=== PATIENT | female | born 1980 | race Caucasian/White ===

== ENCOUNTER 2017-03-14 00:45 | Emergency (ER) | payer MEDICAID ==
[2017-03-14] MEDS ORDERED: CEPHALEXIN 500 MG CAPSULE PO ONE (02:46)
--- NOTE | 2017-03-14 02:46 | ER Document Report ---
ED Skin Rash/Insect Bite/Abscs - General Chief Complaint: Abscess Stated Complaint: POSSIBLE VAGINAL BOIL Time Seen by Provider: 03/14/17 01:18 Notes: Patient is a 36-year-old female presents emergency department complaining of right vulvar boil for the past 2 weeks that has been intermittently painful. Patient states for the past 2 days it has been painful to touch in with sitting. She denies any fevers, chills, drainage PMH: diabetic TRAVEL OUTSIDE OF THE [place] IN LAST 30 DAYS: No - Related Data Allergies/Adverse Reactions: Shellfish * [Shellfish] Allergy (Severe, Verified 10/25/15 04:28) Hives (hospitalized for 2 days) amoxicillin trihydrate [From Augmentin] Allergy (Intermediate, Verified 04:28) Rash Potassium Clavulanate * [From Augmentin] Allergy (Intermediate, Verified 04:28) Rash propoxyphene napsylate [From Darvocet-N 100] Allergy (Intermediate, Verified 04:28) Rash Past Medical History - Social History Smoking Status: Current Every Day Smoker Chew tobacco use (# tins/day): No Frequency of alcohol use: Occasional Drug Abuse: None Family History: Reviewed & Not Pertinent Patient has suicidal ideation: No Patient has homicidal ideation: No - Past Medical History Cardiac Medical History: Reports: Hx Heart Attack, Hx Hypercholesterolemia, Hx Hypertension Denies: Hx Coronary Artery Disease Pulmonary Medical History: Reports: Hx Asthma, Hx Sleep Apnea Denies: Hx Bronchitis, Hx COPD, Hx Pneumonia, Hx Tuberculosis Neurological Medical History: Denies: Hx Cerebrovascular Accident, Hx Seizures Endocrine Medical History: Reports: Hx Diabetes Mellitus Type 2 Renal/ Medical History: Denies: Hx Peritoneal Dialysis GI Medical History: Reports: Hx Gastroesophageal Reflux Disease, Hx Ulcer Musculoskeltal Medical History: Denies Hx Arthritis Psychiatric Medical History: Reports: Hx Bipolar Disorder, Hx Depression, Hx Post Traumatic Stress Disorder, Hx Schizoaffective Disorder, Hx Schizophrenia Infectious Medical History: Past Surgical History: Reports: Hx Appendectomy, Hx Cholecystectomy, Hx Orthopedic Surgery, Hx Tonsillectomy. Denies: Hx Hysterectomy, Hx Pacemaker - Immunizations Hx Diphtheria, Pertussis, Tetanus Vaccination: No Hx Pneumococcal Vaccination: 10/13/97 Review of Systems - Review of Systems Constitutional: No symptoms reported Cardiovascular: No symptoms reported Respiratory: No symptoms reported Gastrointestinal: No symptoms reported Skin: See HPI -: Yes All other systems reviewed and negative Physical Exam - Vital signs Vitals: Temp Pulse Resp BP Pulse Ox 97.9 F 89 16 129/86 H 99 03/14/17 00:52 03/14/17 00:52 03/14/17 00:52 03/14/17 00:52 03/14/17 00:52 Interpretation: Normal - General General appearance: Appears well, Alert In distress: None - Genitourinary External exam: Normal, Other - no evidence of bartholian cyst Vaginal bleeding: None - Extremities General lower extremity: Normal inspection, Nontender, Normal color, Normal ROM , Normal strength, Normal temperature, Normal weight bearing. No: Henrique's sign - Skin Skin Temperature: Warm Skin Moisture: Dry Skin Color: Normal Skin Turgor: Elastic Skin irregularity: Abscess Location of irregularity: Other - groin Irregularity with: Swelling, Tenderness, Induration Course - Re-evaluation Re-evalutation: 03/14/17 04:52 He performed at the bedside for minimal less than 2 cc of drainage. Patient initiated on antibiotics instructed to keep the area clean and dry. Can follow- up with primary care - Vital Signs Vital signs: Temp Pulse Resp BP Pulse Ox 97.9 F 83 20 117/76 95 03/14/17 00:52 03/14/17 02:59 03/14/17 02:59 03/14/17 02:59 03/14/17 02:59 Procedures - Incision and Drainage Groin Type: Simple Anesthetic type: 1% Lidocaine mL's of anesthetic: 3 Blade size: 11 I&D procedure: Betadine prep applied, Sterile dressing applied Incision Method: Incision made by scalpel Amount/type of drainage: 2 purulent/bloody Female anatomy: 1 - abscess Discharge - Discharge Clinical Impression: Cellulitis Condition: Good Disposition: HOME, SELF-CARE Instructions: Post Incision and Drainage, Cephalexin ([facility]), Abscess ([facility]), Use of [id number] Ibuprofen ([facility]) Prescriptions: Cephalexin Monohydrate [Keflex 500 mg Capsule] 500 mg PO QID #20 capsule Fluconazole [Diflucan] 150 mg PO ONCE PRN #1 tablet PRN Reason: Referrals: ELA PUCKETT MD [[facility]] - Follow up as needed
[2017-03-14 03:01] VITALS: BP 117/76
[2017-03-14] MEDS ORDERED: OXYCODONE-ACETAMINOPHEN 5-325 MG TABLET PO ONE (03:01)
== END 2017-03-14 03:08 | disposition home or self-care (01) ==
LOC: ER 00:45
PROC: 0H9AXZZ Drainage of Inguinal Skin, External Approach (ICD-10-PCS; principal; 2017-03-14)
DX: N76.0 Acute vaginitis (principal); F17.200 Nicotine dependence, unspecified, uncomplicated
CPT/HCPCS: 99283

== ENCOUNTER 2017-04-25 13:10 | Emergency (ER) | payer MEDICAID ==
--- NOTE | 2017-04-25 14:49 | ER Document Report ---
ED Extremity Problem, Lower - General Chief Complaint: Foot Injury Stated Complaint: RIGHT FOOT PAIN Time Seen by Provider: 04/25/17 13:47 Mode of Arrival: Ambulatory Notes: 36-year-old female presents to ED for right foot pain since Friday. She denies any obvious injuries. She does not remember any injuries. But the pain keeps getting worse. TRAVEL OUTSIDE OF THE [place] IN LAST 30 DAYS: No - HPI Patient complains to provider of: Pain Location: Foot Occurred: Other - Friday Where: Home Onset/Duration: Gradual Quality of pain: Sharp Severity: Moderate Pain Level: 4 Recent injury: Possibly Associated symptoms: Painful ambulation Exacerbated by: Movement, Walking Relieved by: Nothing - Related Data Allergies/Adverse Reactions: Shellfish * [Shellfish] Allergy (Severe, Verified 10/25/15 04:28) Hives (hospitalized for 2 days) amoxicillin trihydrate [From Augmentin] Allergy (Intermediate, Verified 04:28) Rash Potassium Clavulanate * [From Augmentin] Allergy (Intermediate, Verified 04:28) Rash propoxyphene napsylate [From Darvocet-N 100] Allergy (Intermediate, Verified 04:28) Rash Past Medical History - General Information source: Patient - Social History Smoking Status: Current Every Day Smoker Cigarette use (# per day): Yes - Pack per day Chew tobacco use (# tins/day): No Smoking Education Provided: Yes - Less than 2 minutes Frequency of alcohol use: None Drug Abuse: None Occupation: Disability Lives with: Family Family History: Arthritis, CAD, COPD, DM, Hyperlipidemia, Hypertension, Thyroid Disfunction. denies: CVA, Malignancy Patient has suicidal ideation: No Patient has homicidal ideation: No - Past Medical History Cardiac Medical History: Reports: Hx Heart Attack, Hx Hypercholesterolemia, Hx Hypertension Pulmonary Medical History: Reports: Hx Asthma, Hx Sleep Apnea EENT Medical History: Reports: None Neurological Medical History: Reports: None Endocrine Medical History: Reports: Hx Diabetes Mellitus Type 2 Renal/ Medical History: Reports: None Malignancy Medical History: Reports: None GI Medical History: Reports: Hx Gastroesophageal Reflux Disease, Hx Ulcer Musculoskeltal Medical History: Reports Hx Arthritis, Reports Hx Musculoskeletal Deformity, Reports Hx Musculoskeletal Trauma Skin Medical History: Reports None Psychiatric Medical History: Reports: Hx Bipolar Disorder, Hx Depression, Hx Post Traumatic Stress Disorder, Hx Schizoaffective Disorder, Hx Schizophrenia Traumatic Medical History: Reports: Hx Fractures Infectious Medical History: Reports: None Past Surgical History: Reports: Hx Appendectomy, Hx Cholecystectomy, Hx Genitourinary Surgery - Bladder stimulator, Hx Gynecologic Surgery - Cervical laser surgery, Hx Orthopedic Surgery - Bunion surgery right foot, Hx Tonsillectomy - Immunizations Hx Diphtheria, Pertussis, Tetanus Vaccination: No Hx Pneumococcal Vaccination: 10/13/97 Review of Systems - Review of Systems Constitutional: No symptoms reported EENT: No symptoms reported Cardiovascular: No symptoms reported Respiratory: No symptoms reported Gastrointestinal: No symptoms reported Genitourinary: No symptoms reported Female Genitourinary: No symptoms reported Musculoskeletal: Other - Foot pain midfoot Skin: No symptoms reported Hematologic/Lymphatic: No symptoms reported Neurological/Psychological: No symptoms reported -: Yes All other systems reviewed and negative Physical Exam - Vital signs Vitals: Temp Pulse Resp BP Pulse Ox 98.7 F 92 16 124/77 96 04/25/17 13:37 04/25/17 13:37 04/25/17 13:37 04/25/17 13:37 04/25/17 13:37 Interpretation: Normal - General General appearance: Appears well, Alert - HEENT Head: Normocephalic, Atraumatic Eyes: Normal Pupils: PERRL - Respiratory Respiratory status: No respiratory distress Chest status: Nontender Breath sounds: Normal Chest palpation: Normal - Cardiovascular Rhythm: Regular Heart sounds: Normal auscultation Murmur: No - Abdominal Inspection: Normal Distension: No distension Bowel sounds: Normal Tenderness: Nontender Organomegaly: No organomegaly - Back Back: Normal, Nontender - Extremities General upper extremity: Normal inspection, Nontender, Normal color, Normal ROM , Normal temperature General lower extremity: Normal inspection, Normal color, Normal ROM, Normal temperature, Normal weight bearing. No: Henrique's sign Foot: Tender, Metatarsal compress. pain, No evidence of FB. No: Deformity, Ecchymosis, Edema, Instability, Nail injury, Navicular tenderness, Puncture wound, Tender 5th metatarsal, Unable to bear weight - Neurological Neuro grossly intact: Yes Cognition: Normal Orientation: AAOx4 [place] Coma Scale Eye Opening: Spontaneous [place] Coma Scale Verbal: Oriented Johnnie Coma Scale Motor: Obeys Commands Johnnie Coma Scale Total: 15 Speech: Normal Motor strength normal: LUE, RUE, LLE, RLE Sensory: Normal - Psychological Associated symptoms: Normal affect, Normal mood - Skin Skin Temperature: Warm Skin Moisture: Dry Skin Color: Normal Course - Re-evaluation Re-evalutation: 04/25/17 15:11 Instructed to follow-up with primary doctor as there is no new injuries his nose concern on the x-ray. Patient to take ibuprofen or whatever pain medicine she normally takes for her pain. - Vital Signs Vital signs: Temp Pulse Resp BP Pulse Ox 98.7 F 92 16 124/77 96 04/25/17 13:37 04/25/17 13:37 04/25/17 13:37 04/25/17 13:37 04/25/17 13:37 - Diagnostic Test Radiology reviewed: Image reviewed, Reports reviewed Discharge - Discharge Clinical Impression: foot pian right Condition: Stable Disposition: HOME, SELF-CARE Additional Instructions: Was seen today for foot pain to the right foot with no new injuries. Please take ibuprofen for your foot pain. Soaking her foot in Epsom salt. Follow-up with a travel pt or your primary doctor. Ibuprofen Ibuprofen is an excellent, safe drug for pain control. In addition, it has potent antiinflammatory effects which are beneficial, especially in the treatment of injuries, arthritis, or tendonitis. It's best to take ibuprofen with food. Persons with ulcer disease or allergy to aspirin should notify their physician of this before taking ibuprofen. Take the medication exactly as prescribed. Don't take additional doses unless instructed to do so by your doctor. If you develop wheezing, shortness of breath, hives, faintness, stomach pain, vomiting, or dark black stools, return for re-evaluation at once. Epsom Salt Soaks Soak the wound area in a container of warm epsom salt water. If you can't get the wound area into a bucket or amador, use a folded towel soaked in the epsom salt solution and apply to the area. Use clean hot tap water (about the temperature of a very warm bath), mixing in about one (1) teaspoon for every pint of water. Two gallon --> 16 teaspoons Epsom Salts One gallon --> 8 teaspoons Epsom Salts Two quarts --> 4 teaspoons Epsom Salts One quart --> 2 teaspoons Epsom Salts Soak the wound for about 20 minutes while gently moving it around in the water. Repeat this four (4) times a day. FOLLOW-UP CARE: If you have been referred to a physician for follow-up care, call the physician s office for an appointment as you were instructed or within the next two days. If you experience worsening or a significant change in your symptoms, notify the physician immediately or return to the Emergency Department at any time for re-evaluation. Forms: Smoking Cessation Education
--- NOTE | 2017-04-25 14:55 | RADIOLOGY REPORT (SQ) ---
EXAM DESCRIPTION: FOOT RIGHT COMPLETE COMPLETED DATE/TIME: 04/25/2017 2:37 pm REASON FOR STUDY: pain increasing right foot COMPARISON: 04/28/2012 NUMBER OF VIEWS: Three views. TECHNIQUE: AP, lateral and oblique radiographic images acquired of the right foot. LIMITATIONS: None. FINDINGS: MINERALIZATION: Normal. BONES: Apparent prior bunion surgery with hallux valgus. No acute fracture or dislocation is seen. JOINTS: No effusions. SOFT TISSUES: No soft tissue swelling. No foreign body. OTHER: No other significant finding. IMPRESSION: NEGATIVE STUDY OF THE RIGHT FOOT. NO RADIOGRAPHIC EVIDENCE OF ACUTE INJURY. TECHNICAL DOCUMENTATION: JOB ID: [id number] [employer]- All Rights Reserved
[2017-04-25 15:27] VITALS: BP 125/73
== END 2017-04-25 15:24 | disposition home or self-care (01) ==
LOC: ER 13:10
DX: M79.671 Pain in right foot (principal); F17.210 Nicotine dependence, cigarettes, uncomplicated; E78.00 Pure hypercholesterolemia, unspecified; I10 Essential (primary) hypertension; E11.9 Type 2 diabetes mellitus without complications; K21.9 Gastro-esophageal reflux disease without esophagitis; Z90.49 Acquired absence of other specified parts of digestive tract; Z88.0 Allergy status to penicillin; Z91.013 Allergy to seafood; I25.2 Old myocardial infarction
CPT/HCPCS: 99283

== ENCOUNTER 2017-05-10 15:08 | Emergency (ER) | payer MEDICAID ==
[2017-05-10] MEDS ORDERED: ASPIRIN 81 MG TABLET, CHEWABLE PO ONE (15:42)
[2017-05-10] MEDS ORDERED: NITROGLYCERIN 0.4 MG/TAB 25 TAB/BOTTLE SL PRN (15:50)
[2017-05-10] MEDS ORDERED: ONDANSETRON 4 MG TAB.RAPDIS PO ONE (15:51)
--- NOTE | 2017-05-10 15:51 | ER Document Report ---
ED Medical Screen (RME) - General Chief Complaint: Chest Pain Stated Complaint: CHEST PAIN Time Seen by Provider: 05/10/17 15:47 TRAVEL OUTSIDE OF THE [place] IN LAST 30 DAYS: No - HPI Patient complains to provider of: Chest pain associated with nausea, radiation to left arm. Like previous SD Onset: This morning Onset/Duration: Constant Quality of pain: Fullness, Pressure Severity: Severe Notes: 05/10/17 15:49 Patient with history of previous myocardial infarction presents with chest pain left arm tingling profound nausea. Is very reminiscent of her previous myocardial infarction. Patient says it is a fullness or crushing pain severe in nature nothing has made it better or worse. Patient denies fever chills or cough. Was in her normal state of health yesterday. Patient is not certain if exertion increases the pain - Related Data Smoking: Cigarettes - Smoker Allergies/Adverse Reactions: Shellfish * [Shellfish] Allergy (Severe, Verified 05/10/17 15:25) Hives (hospitalized for 2 days) amoxicillin trihydrate [From Augmentin] Allergy (Intermediate, Verified 15:25) Rash Potassium Clavulanate * [From Augmentin] Allergy (Intermediate, Verified 15:25) Rash propoxyphene napsylate [From Darvocet-N 100] Allergy (Intermediate, Verified 15:25) Rash Past Medical History - Social History Chew tobacco use (# tins/day): No Frequency of alcohol use: None Drug Abuse: None - Past Medical History Cardiac Medical History: Reports: Hx Heart Attack - 2010, Hx Hypercholesterolemia, Hx Hypertension Pulmonary Medical History: Reports: Hx Asthma, Hx Sleep Apnea Denies: Hx Bronchitis, Hx COPD, Hx Pneumonia, Hx Tuberculosis Neurological Medical History: Denies: Hx Seizures Endocrine Medical History: Reports: Hx Diabetes Mellitus Type 2 Renal/ Medical History: Denies: Hx Peritoneal Dialysis GI Medical History: Reports: Hx Gastroesophageal Reflux Disease, Hx Ulcer Musculoskeltal Medical History: Reports Hx Arthritis, Reports Hx Musculoskeletal Deformity, Reports Hx Musculoskeletal Trauma Psychiatric Medical History: Reports: Hx Bipolar Disorder, Hx Depression, Hx Post Traumatic Stress Disorder, Hx Schizoaffective Disorder, Hx Schizophrenia Traumatic Medical History: Reports: Hx Fractures Infectious Medical History: Past Surgical History: Reports: Hx Appendectomy, Hx Cholecystectomy, Hx Genitourinary Surgery - Bladder stimulator, Hx Gynecologic Surgery - Cervical laser surgery, Hx Orthopedic Surgery - Bunion surgery right foot, Hx Tonsillectomy. Denies: Hx Hysterectomy, Hx Pacemaker - Immunizations Hx Diphtheria, Pertussis, Tetanus Vaccination: No Physical Exam - Vital signs Vitals: Temp Pulse Resp BP Pulse Ox 98.0 F 85 16 120/73 98 05/10/17 15:25 05/10/17 15:25 05/10/17 15:25 05/10/17 15:25 05/10/17 15:25 Interpretation: Normal - General General appearance: Appears well, Alert In distress: Mild - HEENT Head: Normocephalic, Atraumatic Eyes: Normal Pupils: PERRL - Respiratory Respiratory status: No respiratory distress Chest status: Nontender Breath sounds: Normal Chest palpation: Normal - Cardiovascular Rhythm: Regular Heart sounds: Normal auscultation Murmur: No - Abdominal Inspection: Normal Distension: No distension Bowel sounds: Normal Tenderness: Nontender Organomegaly: No organomegaly - Back Back: Normal, Nontender - Extremities General upper extremity: Normal inspection, Nontender, Normal color, Normal ROM , Normal temperature General lower extremity: Normal inspection, Nontender, Normal color, Normal ROM , Normal temperature, Normal weight bearing. No: Henrique's sign - Neurological Neuro grossly intact: Yes Cognition: Normal Orientation: AAOx4 Johnnie Coma Scale Eye Opening: Spontaneous Johnnie Coma Scale Verbal: Oriented Johnnie Coma Scale Motor: Obeys Commands Johnnie Coma Scale Total: 15 Speech: Normal Motor strength normal: LUE, RUE, LLE, RLE Sensory: Normal - Psychological Associated symptoms: Normal affect, Normal mood - Skin Skin Temperature: Warm Skin Moisture: Dry Skin Color: Normal Course - Vital Signs Vital signs: Temp Pulse Resp BP Pulse Ox 98.0 F 85 16 120/73 98 05/10/17 15:25 05/10/17 15:25 05/10/17 15:25 05/10/17 15:25 05/10/17 15:25
[2017-05-10 16:18] LABS: ABSOLUTE EOSINOPHILS # (AUTO) 0.2 10^3/uL (0.0-0.6); ABSOLUTE LYMPHOCYTES (AUTO) 3.4 10^3/uL (0.5-4.7); ABSOLUTE MONOCYTES (AUTO) 0.8 10^3/uL (0.1-1.4); ABSOLUTE NEUT (AUTO) 5.8 10^3/uL (1.7-8.2); BASOPHILS % (AUTO) 0.3 % (0-2); EOSINOPHILS % (AUTO) 1.7 % (0-6); HEMATOCRIT 39.3 % (36.0-47.0); HEMOGLOBIN 13.7 g/dL (12.0-15.5); HGB HCT DIFFERENCE 1.8; LYMPHOCYTES % (AUTO) 33.3 % (13-45); MEAN CORPUSCULAR HEMOGLOBIN 31.9 pg (27.0-33.4); MEAN CORPUSCULAR HGB CONC 34.8 g/dL (32.0-36.0); MEAN CORPUSCULAR VOLUME 92 fl (80-97); MONOCYTES % (AUTO) 8.1 % (3-13); RED BLOOD COUNT 4.29 10^6/uL (3.72-5.28); SEGMENTED NEUTROPHILS % (AUTO) 56.6 % (42-78); WHITE BLOOD COUNT 10.3 10^3/uL (4.0-10.5)
--- NOTE | 2017-05-10 16:33 | RADIOLOGY REPORT (SQ) ---
EXAM DESCRIPTION: CHEST SINGLE VIEW COMPLETED DATE/TIME: 05/10/2017 4:15 pm REASON FOR STUDY: chest pain COMPARISON: 07/30/2016 EXAM PARAMETERS: NUMBER OF VIEWS: One view. TECHNIQUE: Single frontal radiographic view of the chest acquired. RADIATION DOSE: NA LIMITATIONS: None. FINDINGS: LUNGS AND PLEURA: No opacities, masses or pneumothorax. No pleural effusion. MEDIASTINUM AND HILAR STRUCTURES: No masses. Contour normal. HEART AND VASCULAR STRUCTURES: Heart normal in size. Normal vasculature. BONES: No acute findings. HARDWARE: None in the chest. OTHER: No other significant finding. IMPRESSION: NO ACUTE RADIOGRAPHIC FINDING IN THE CHEST. TECHNICAL DOCUMENTATION: JOB ID: [id number]
[2017-05-10 16:43] LABS: ALANINE AMINOTRANSFERASE 128 U/L (9-52); ALBUMIN 3.9 g/dL (3.5-5.0); ALKALINE PHOSPHATASE 97 U/L (38-126); ANION GAP 9 (5-19); ASPARTATE AMINO TRANSFERASE 138 U/L (14-36); BILIRUBIN,DIRECT 0.4 mg/dL (0.0-0.4); BILIRUBIN,TOTAL 0.4 mg/dL (0.2-1.3); BLOOD UREA NITROGEN 7 mg/dL (7-20); CALCIUM 9.6 mg/dL (8.4-10.2); CARBON DIOXIDE 26 mmol/L (22-30); CHLORIDE 104 mmol/L (98-107); CREATININE RESULT 0.74 mg/dL (0.52-1.25); GLUCOSE 104 mg/dL (75-110); POTASSIUM 4.1 mmol/L (3.6-5.0); SODIUM 139.1 mmol/L (137-145); TOTAL PROTEIN 6.8 g/dL (6.3-8.2)
--- NOTE | 2017-05-10 16:50 | ER Document Report ---
ED Cardiac - General Chief Complaint: Chest Pain Stated Complaint: CHEST PAIN Time Seen by Provider: 05/10/17 15:47 Mode of Arrival: Ambulatory Information source: Patient TRAVEL OUTSIDE OF THE [place] IN LAST 30 DAYS: No - HPI Patient complains to provider of: Chest pain Was the onset of pain: Gradual Is the pain a: New problem Chest pain location: Under breast Quality of pain: Achy Severity now: Mild Severity at worst: Moderate Chest pain precipitating factors: At Rest Cardiac risk factors: Diabetes, Hypertension, Dyslipidemia Associated symptoms: Nausea/vomiting Notes: Patient is a 36-year-old female with a history of diabetes, high cholesterol, asthma, hypertension, peripheral vascular disease as well as a history of mental illness, she presents to the emergency room complaining of dull achy chest pain that started around 530 this morning, it is located just below the left breast, she reports improvement of symptoms since 530 this morning, however does have some nausea, nonproductive cough, with occasional shortness of breath, she denies any fever, patient reports a history of NV back in 2010 or 2011, states she was treated at [facility] in [place], [place] [facility] [employer] she had a cardiac catheterization and told it was fine without blockage and she did not receive any stents at that time, patient is a smoker - Related Data Allergies/Adverse Reactions: Shellfish * [Shellfish] Allergy (Severe, Verified 05/10/17 16:34) Hives (hospitalized for 2 days) amoxicillin trihydrate [From Augmentin] Allergy (Intermediate, Verified 16:34) Rash Potassium Clavulanate * [From Augmentin] Allergy (Intermediate, Verified 16:34) Rash propoxyphene napsylate [From Darvocet-N 100] Allergy (Intermediate, Verified 16:34) Rash Past Medical History - General Information source: Patient - Social History Smoking Status: Current Every Day Smoker Chew tobacco use (# tins/day): No Frequency of alcohol use: None Drug Abuse: None Family History: Arthritis, CAD, COPD, DM, Hyperlipidemia, Hypertension, Thyroid Disfunction. denies: CVA, Malignancy - Past Medical History Cardiac Medical History: Reports: Hx Heart Attack - 2010, Hx Hypercholesterolemia, Hx Hypertension Pulmonary Medical History: Reports: Hx Asthma, Hx Sleep Apnea Denies: Hx Bronchitis, Hx COPD, Hx Pneumonia, Hx Tuberculosis Neurological Medical History: Denies: Hx Seizures Endocrine Medical History: Reports: Hx Diabetes Mellitus Type 2 Renal/ Medical History: Denies: Hx Peritoneal Dialysis GI Medical History: Reports: Hx Gastroesophageal Reflux Disease, Hx Ulcer Musculoskeltal Medical History: Reports Hx Arthritis, Reports Hx Musculoskeletal Deformity, Reports Hx Musculoskeletal Trauma Psychiatric Medical History: Reports: Hx Bipolar Disorder, Hx Depression, Hx Post Traumatic Stress Disorder, Hx Schizoaffective Disorder, Hx Schizophrenia Traumatic Medical History: Reports: Hx Fractures Infectious Medical History: Past Surgical History: Reports: Hx Appendectomy, Hx Cholecystectomy, Hx Genitourinary Surgery - Bladder stimulator, Hx Gynecologic Surgery - Cervical laser surgery, Hx Orthopedic Surgery - Bunion surgery right foot, Hx Tonsillectomy. Denies: Hx Hysterectomy, Hx Pacemaker - Immunizations Hx Diphtheria, Pertussis, Tetanus Vaccination: No Hx Pneumococcal Vaccination: 10/13/97 Review of Systems - Review of Systems Constitutional: No symptoms reported EENT: No symptoms reported Cardiovascular: Chest pain Respiratory: No symptoms reported Gastrointestinal: No symptoms reported Genitourinary: No symptoms reported Female Genitourinary: No symptoms reported Musculoskeletal: No symptoms reported Skin: No symptoms reported Hematologic/Lymphatic: No symptoms reported Neurological/Psychological: No symptoms reported -: Yes All other systems reviewed and negative Physical Exam - Vital signs Vitals: Temp Pulse Resp BP Pulse Ox 98.0 F 85 16 120/73 98 05/10/17 15:25 05/10/17 15:25 05/10/17 15:25 05/10/17 15:25 05/10/17 15:25 Interpretation: Normal - General General appearance: Appears well, Alert - HEENT Head: Normocephalic, Atraumatic Eyes: Normal Pupils: PERRL - Respiratory Respiratory status: No respiratory distress Chest status: Tender - Tenderness to palpate in left anterior chest wall Breath sounds: Normal Chest palpation: Normal - Cardiovascular Rhythm: Regular Heart sounds: Normal auscultation Murmur: No - Abdominal Inspection: Morbidly Obese Distension: No distension Bowel sounds: Normal Tenderness: Nontender Organomegaly: No organomegaly - Back Back: Normal, Nontender - Extremities General upper extremity: Normal inspection, Nontender, Normal color, Normal ROM , Normal temperature General lower extremity: Normal inspection, Nontender, Normal color, Normal ROM , Normal temperature, Normal weight bearing. No: Henrique's sign - Neurological Neuro grossly intact: Yes Cognition: Normal Orientation: AAOx4 [place] Coma Scale Eye Opening: Spontaneous [place]nie Coma Scale Verbal: Oriented Johnnie Coma Scale Motor: Obeys Commands [place] Coma Scale Total: 15 Speech: Normal Motor strength normal: LUE, RUE, LLE, RLE Sensory: Normal - Psychological Associated symptoms: Normal affect, Normal mood - Skin Skin Temperature: Warm Skin Moisture: Dry Skin Color: Normal Course - Re-evaluation Re-evalutation: 05/10/17 17:35 Patient's chest pain is reproducible on palpation, cardiac enzymes are negative after 12 hours from onset of pain, workup is otherwise unremarkable in the emergency room, she has multiple risk factors for heart disease, reports an NV in 2010 or 2011 but also states that she had a cardiac catheterization which she was told was normal and she did not receive any stents, I reviewed her records at this facility back to 2010 and there is no evidence of any elevated troponins during her visits here, I did request records from [facility] to clarify whether patient actually had an NV in the past or not but since it is the weekend there was quite a delay in obtaining the records, patient is resting comfortably, in no acute distress, it is unlikely that her reproducible chest pain is cardiac related with an unremarkable evaluation here, patient has a local roller coaster operator, she was advised to follow-up in the next 1-2 days or return if symptoms worsen, patient acknowledges understanding and agreement with this plan - Vital Signs Vital signs: Temp Pulse Resp BP Pulse Ox 98.0 F 72 20 111/67 97 05/10/17 15:25 05/10/17 16:35 05/10/17 16:35 05/10/17 16:32 05/10/17 16:34 - Laboratory Result Diagrams: 05/10/17 16:00 05/10/17 16:00 Laboratory results interpreted by me: 05/10/17 05/10/17 16:00 16:00 AST 138 H ALT 128 H Lipase 21.0 L - Diagnostic Test Radiology reviewed: Image reviewed, Reports reviewed - EKG Interpretation by Me EKG shows normal: Sinus rhythm Rate: Normal Rhythm: NSR Discharge - Discharge Clinical Impression: Chest wall pain Condition: Stable Disposition: HOME, SELF-CARE Instructions: Chest Wall Pain ([facility]) Additional Instructions: Follow up with your primary care provider and roller coaster operator in one to 2 days. Return to the emergency room immediately if symptoms worsen or any additional concerns. Forms: Smoking Cessation Education
[2017-05-10] MEDS ORDERED: ONDANSETRON HCL INJ/PF 4 MG/2 ML SDV IV ONE (17:17)
[2017-05-10 17:42] VITALS: BP 124/90
--- NOTE | 2017-05-11 11:10 | EKG REPORT ---
SEVERITY:- NORMAL ECG - SINUS RHYTHM : Confirmed by: Ananya Tamayo MD 11-May-2017 11:09:39
== END 2017-05-10 17:41 | disposition home or self-care (01) ==
LOC: ER 15:08
DX: R07.89 Other chest pain (principal); E11.9 Type 2 diabetes mellitus without complications; E78.00 Pure hypercholesterolemia, unspecified; J45.909 Unspecified asthma, uncomplicated; I10 Essential (primary) hypertension; I73.9 Peripheral vascular disease, unspecified; F17.200 Nicotine dependence, unspecified, uncomplicated
CPT/HCPCS: 93005; 99285; 36415; 83690; 85025; 80053; 84484; 71010; 93010; S0119; J3490

== ENCOUNTER → 2017-05-23 | Outpatient (CLI) | payer MEDICAID | LOC: OD 09:12 | PROVIDERS: ATTEND Internal Medicine | DX: N92.6 Irregular menstruation, unspecified (principal) | CPT/HCPCS: 36415; 84703 ==

== ENCOUNTER 2017-06-02 12:50 | Day surgery (SDC) | payer MEDICAID ==
[2017-06-02] MEDS ORDERED: DIPHENHYDRAMINE HCL 50 MG/ML VIAL ONE (12:53)
[2017-06-02] MEDS ORDERED: NALOXONE HCL INJ/PF 0.4 MG/1 ML SDV ONE (12:53)
[2017-06-02] MEDS ORDERED: ONDANSETRON HCL INJ/PF 4 MG/2 ML SDV ONE (12:53)
[2017-06-02] MEDS ORDERED: EPINEPHRINE INJ 1 MG/10 ML DISP.SYRIN ONE (12:54)
[2017-06-02] MEDS ORDERED: FENTANYL CITRATE INJ/PF 100 MCG/2 ML AMPUL ONE (12:54)
[2017-06-02] MEDS ORDERED: GLUCAGON,HUMAN RECOMB 1 MG INJ ONE (12:54)
[2017-06-02] MEDS ORDERED: FLUMAZENIL INJ 0.5 MG/5 ML VIAL ONE (12:54)
[2017-06-02] MEDS ORDERED: MIDAZOLAM 2 MG/2 ML INJ ONE ×2 (12:54)
[2017-06-02] MEDS ORDERED: PROPOFOL INJ 200 MG/20 ML VIAL IV ONE (13:15)
--- NOTE | 2017-06-02 13:55 | Operative Report ---
Operative Report DATE OF SURGERY: 06/02/17 Operative Report: The risks benefits and alternatives of the procedure explained to the patient in detail and informed consent is obtained.A GIF Olympus video scope was inserted into the patient's mouth and hypopharynx, the esophagus is identified intubated and insufflated, the scope was then advanced through the esophagus stomach and duodenum, retroflexion maneuver is done, the esophagus stomach and first and second portions of the duodenum examined PREOPERATIVE DIAGNOSIS: Epigastric pain POSTOPERATIVE DIAGNOSIS: Esophagitis, gastritis. Biopsies obtained to rule out for Helicobacter pylori OPERATION: EGD with biopsy SURGEON: RADHA ZAMORA ANESTHESIA: LMAC TISSUE REMOVED OR ALTERED: Gastric mucosal specimens obtained COMPLICATIONS: None. ESTIMATED BLOOD LOSS: None. INTRAOPERATIVE FINDINGS: No gastric ulcers noted PROCEDURE: Patient tolerated the procedure well. No immediate postprocedure complications are noted. Patient is discharged in good condition. Discharge date 06/02/2017. Discharge diet: Regular. Discharge activity: Regular. 2-3 week follow-up to discuss findings. Patient is instructed to call the office or proceed to the emergency room should there be any further problems or questions. We will wait on biopsies.
[2017-06-02 14:29] VITALS: BP 130/80
== END 2017-06-02 14:35 | disposition home or self-care (01) ==
LOC: END 12:50
PROVIDERS: ATTEND Internal Medicine Gastroenterology
PROC: 0DB68ZX Excision of Stomach, Via Natural or Artificial Opening Endoscopic, Diagnostic (ICD-10-PCS; principal; 2017-06-02 14:00)
DX: K31.9 Disease of stomach and duodenum, unspecified (principal); K20.9 Esophagitis, unspecified; E11.9 Type 2 diabetes mellitus without complications; I20.9 Angina pectoris, unspecified; I10 Essential (primary) hypertension; R00.0 Tachycardia, unspecified; E78.00 Pure hypercholesterolemia, unspecified; J45.909 Unspecified asthma, uncomplicated; Z79.899 Other long term (current) drug therapy; Z79.1 Long term (current) use of non-steroidal anti-inflammatories (NSAID); Z88.1 Allergy status to other antibiotic agents; I25.2 Old myocardial infarction; Z88.5 Allergy status to narcotic agent
CPT/HCPCS: 43239; 82962; 88342 ×2; 88305 ×2; J2250; J2704; 740; J0171; J1200; J1610; J2310; J2405; J3010; J3490

== ENCOUNTER 2017-06-26 09:19 | Emergency (ER) | payer MEDICAID ==
[2017-06-26 09:25] VITALS: BP 130/75
--- NOTE | 2017-06-26 10:27 | ER Document Report ---
ED Skin Rash/Insect Bite/Abscs - General Chief Complaint: Insect Bite Stated Complaint: LEFT HAND PAIN, SWELLING Time Seen by Provider: 06/26/17 10:04 Mode of Arrival: Ambulatory Information source: Patient Notes: 37-year-old female presents to ED for bug bite to the left hand. She states she took Benadryl and Tylenol about 8:00 states something bit her between 7 and 715. Denies any other symptoms. Denies any shortness of breath difficulty swallowing. TRAVEL OUTSIDE OF THE [place] IN LAST 30 DAYS: No - HPI Patient complains to provider of: Insect bite Onset: This morning Onset/Duration: Gradual Quality of pain: Burning Severity: Moderate Pain Level: 2 Skin Character: Other - Insert bite to left hand Quality of rash: Itchy, Painful Identify cause: Yes Exacerbated by: Denies Relieved by: Denies Similar symptoms previously: Yes Recently seen / treated by doctor: No - Related Data Allergies/Adverse Reactions: Shellfish * [Shellfish] Allergy (Severe, Verified 06/26/17 09:25) Hives (hospitalized for 2 days) amoxicillin trihydrate [From Augmentin] Allergy (Intermediate, Verified 09:25) Rash Potassium Clavulanate * [From Augmentin] Allergy (Intermediate, Verified 09:25) Rash propoxyphene napsylate [From Darvocet-N 100] Allergy (Intermediate, Verified 09:25) Rash Sulfa (Sulfonamide Antibiotics) Allergy (Intermediate, Verified 06/26/17 09:25) Generalized rash Past Medical History - General Information source: Patient - Social History Smoking Status: Current Every Day Smoker Cigarette use (# per day): Yes - 15 cigarettes a day Chew tobacco use (# tins/day): No Smoking Education Provided: Yes - Less than 2 minutes Frequency of alcohol use: Occasional Drug Abuse: None Lives with: Family Family History: Arthritis, CAD, COPD, DM, Hyperlipidemia, Hypertension, Thyroid Disfunction. denies: CVA, Malignancy Patient has suicidal ideation: No Patient has homicidal ideation: No - Past Medical History Cardiac Medical History: Reports: Hx Heart Attack - 2011, Hx Hypercholesterolemia, Hx Hypertension Pulmonary Medical History: Reports: Hx Asthma, Hx Sleep Apnea Denies: Hx Bronchitis, Hx COPD, Hx Pneumonia, Hx Tuberculosis EENT Medical History: Reports: None Neurological Medical History: Reports: None Endocrine Medical History: Reports: Hx Diabetes Mellitus Type 2 Renal/ Medical History: Reports: None Malignancy Medical History: Reports: None GI Medical History: Reports: Hx Gastroesophageal Reflux Disease Musculoskeltal Medical History: Reports Hx Arthritis, Reports Hx Musculoskeletal Deformity, Reports Hx Musculoskeletal Trauma Skin Medical History: Reports None Psychiatric Medical History: Reports: Hx Bipolar Disorder, Hx Depression, Hx Post Traumatic Stress Disorder, Hx Schizoaffective Disorder, Hx Schizophrenia Traumatic Medical History: Reports: Hx Fractures - Right foot Infectious Medical History: Reports: None Past Surgical History: Reports: Hx Appendectomy, Hx Cholecystectomy, Hx Genitourinary Surgery - Bladder stimulator, Hx Gynecologic Surgery - Cervical laser surgery, Hx Orthopedic Surgery - Bunion surgery right foot, Hx Tonsillectomy - Immunizations Hx Diphtheria, Pertussis, Tetanus Vaccination: No Hx Pneumococcal Vaccination: 10/13/97 Review of Systems - Review of Systems Constitutional: No symptoms reported EENT: No symptoms reported Cardiovascular: No symptoms reported Respiratory: No symptoms reported Gastrointestinal: No symptoms reported Genitourinary: No symptoms reported Female Genitourinary: No symptoms reported Musculoskeletal: No symptoms reported Skin: Other - Insect bite to left hand with local reaction redness and swelling Hematologic/Lymphatic: No symptoms reported Neurological/Psychological: No symptoms reported Physical Exam - Vital signs Vitals: Temp Pulse Resp BP Pulse Ox 98.9 F 95 16 130/75 H 97 06/26/17 09:24 06/26/17 09:24 06/26/17 09:24 06/26/17 09:24 06/26/17 09:24 Interpretation: Normal - General General appearance: Appears well, Alert - HEENT Head: Normocephalic, Atraumatic Eyes: Normal Pupils: PERRL - Respiratory Respiratory status: No respiratory distress Chest status: Nontender Breath sounds: Normal Chest palpation: Normal - Cardiovascular Rhythm: Regular Heart sounds: Normal auscultation Murmur: No - Abdominal Inspection: Normal Distension: No distension Bowel sounds: Normal Tenderness: Nontender Organomegaly: No organomegaly - Back Back: Normal, Nontender - Extremities General upper extremity: Nontender, Normal ROM, Normal temperature General lower extremity: Normal inspection, Nontender, Normal color, Normal ROM , Normal temperature, Normal weight bearing. No: Henrique's sign Hand: Tender, No evidence of human bite, No evidence of FB, Swelling, Other - Insert bite to left back of hand with redness and swelling local insect reaction - Neurological Neuro grossly intact: Yes Cognition: Normal Orientation: AAOx4 [place] Coma Scale Eye Opening: Spontaneous Johnnie Coma Scale Verbal: Oriented [place] Coma Scale Motor: Obeys Commands [place] Coma Scale Total: 15 Speech: Normal Motor strength normal: LUE, RUE, LLE, RLE Sensory: Normal - Psychological Associated symptoms: Normal affect, Normal mood - Skin Skin Temperature: Warm Skin Moisture: Dry Skin Color: Normal Course - Re-evaluation Re-evalutation: 06/26/17 11:11 She was given ice pack for her insect bite she had already taken Tylenol and Benadryl. She has a local reaction to an insect bite and will be discharged home. Patient was given instructions on care of an insect bite. Patient denies any difficulty breathing any difficulty swallowing denies any swelling to her throat. No signs or symptoms of any anaphylactic reaction. - Vital Signs Vital signs: Temp Pulse Resp BP Pulse Ox 98.9 F 95 16 130/75 H 97 06/26/17 09:24 06/26/17 09:24 06/26/17 09:24 06/26/17 09:24 06/26/17 09:24 Discharge - Discharge Clinical Impression: Insect bite of left hand Qualifiers: Encounter type: initial encounter Qualified Code(s): S60.562A - Insect bite ( nonvenomous) of left hand, initial encounter Condition: Stable Disposition: HOME, SELF-CARE Additional Instructions: Insect Bites You have been bitten by an insect. These bites can cause two types of swelling: an initial swelling due to insect saliva or injected poison, and a late reaction due to your body's allergic reaction. This initial local reaction may be uncomfortable but is not dangerous. Often there's an itchy "hive" at the bite location. This is treated with antihistamines, cold compresses, and resting the affected body part. The later reaction often develops about the second day. The entire area becomes very swollen, red, itchy, and tender. This is an allergic reaction. Your body is attacking the leftover insect saliva or venom. This type of allergy is unpleasant, but not dangerous. We treat this swelling with cortisone -type medicine. Sometimes we use antibiotics if we're worried about infection. Antihistamines help with the itch. If you develop a fever, chills, a red streak, or swollen glands in the area of the bite, infection may be starting. Return at once. ACID-SUPPRESSING MEDICATION: You have a prescription for medicine which reduces the stomach's secretion of acid. Examples include Zantac, Tagament, and Pepcid. These drugs are often used to allow healing of ulcers or esophagitis. They may be needed to prevent recurrence of ulcers in some patients, or to prevent damage from acid reflux in the esophagus. Take all medication as prescribed, even after the pain is gone. Regular antacids may be added as needed if you have symptoms while taking this medicine. These medications sometimes are prescribed for allergic reactions because they have anti-histaminic effects and relieve the rash and itching of the reaction. There are usually no side effects from this medication. But, in rare cases and particularly in the elderly, serious problems can occur. Contact your doctor if there is fever, rash, hallucinations, confusion, or unusual bruising. Contact your doctor at once if you develop lightheadedness, black or bloody stool, or bloody vomitus. ANTIHISTAMINES: An antihistamine has been given and/or prescribed to control your symptoms. Antihistamines are used for many reasons, including itching, watering eyes, runny nose, allergic swelling, hives, and insect stings. Antihistamines may cause drowsiness, especially with the first dose. Do not operate machinery or drive while under the effects of the medication. Other common side effects include dry mouth and eyes. In older persons, antihistamines can occasionally cause urinary retention, constipation, and trouble focusing the eyes. Do not combine the medication with alcohol, or with any other medication without talking to your doctor. USE OF DIPHENHYDRAMINE: The use of diphenhydramine (Benadryl) has been recommended to control allergic symptoms. The 25 mg strength is available over- the-counter, as well as the elixir. This antihistamine is used for many symptoms. It's useful for itching, watering eyes and nose, allergic swelling, hives, and insect stings. The medication can be repeated four times daily. Age Elixir (12.5 mg/tsp) 25 mg pill 2-3 yr 1/2 tsp 4-8 yr 1 tsp 9-14 yr 2 tsp one tab adult 1-2 tabs Antihistamines may cause drowsiness, especially with the first dose. Do not operate machinery or drive while under the effects of the medication. Do not combine the medication with alcohol, or with any other medication without talking to your doctor. Ice Packs Apply ice packs frequently against the painful area. Many different schedules are recommended, such as "20 minutes on, 20 minutes off" or "one hour ice, two hours rest." If you need to work, you may need to go longer between ice treatments. You should plan to have the area ice packed AT LEAST one fourth of the time. The ice should be applied over the wrap, tape, or splint, or over a layer of cloth -- not directly against the skin. Some ice bags have a built-in cloth and can be put directly on the skin. FOLLOW-UP CARE: If you have been referred to a physician for follow-up care, call the physician s office for an appointment as you were instructed or within the next two days. If you experience worsening or a significant change in your symptoms, notify the physician immediately or return to the Emergency Department at any time for re-evaluation. Forms: Smoking Cessation Education, Return to School
== END 2017-06-26 10:24 | disposition home or self-care (01) ==
LOC: ER 09:19
DX: S60.562A Insect bite (nonvenomous) of left hand, initial encounter (principal); M79.642 Pain in left hand; F17.210 Nicotine dependence, cigarettes, uncomplicated; W57.XXXA Bitten or stung by nonvenomous insect and other nonvenomous arthropods, initial encounter; E78.00 Pure hypercholesterolemia, unspecified; K21.9 Gastro-esophageal reflux disease without esophagitis; I10 Essential (primary) hypertension; F43.10 Post-traumatic stress disorder, unspecified; E11.9 Type 2 diabetes mellitus without complications; Z88.0 Allergy status to penicillin; Z91.013 Allergy to seafood; Z88.2 Allergy status to sulfonamides; I25.2 Old myocardial infarction; Z90.49 Acquired absence of other specified parts of digestive tract
CPT/HCPCS: 99281

== ENCOUNTER 2017-08-01 09:36 | Emergency (ER) | payer MEDICAID ==
--- NOTE | 2017-08-01 10:14 | ER Document Report ---
ED General - General Chief Complaint: Fall Injury Stated Complaint: FALL/RIGHT ANKLE INJURY Time Seen by Provider: 08/01/17 10:05 Mode of Arrival: Ambulatory Information source: Patient Notes: 37-year-old female who normally uses a walker to ambulate presents after inverting her right ankle. Patient admits to pain of the first digit. Patient is able to ambulate. TRAVEL OUTSIDE OF THE [place] IN LAST 30 DAYS: No - HPI Onset: Just prior to arrival Onset/Duration: Sudden Quality of pain: Achy Severity: Mild Pain Level: 1 Associated symptoms: Body/muscle aches Exacerbated by: Movement, Walking Relieved by: Denies Similar symptoms previously: No Recently seen / treated by doctor: No - Related Data Allergies/Adverse Reactions: Shellfish * [Shellfish] Allergy (Severe, Verified 08/01/17 09:47) Hives (hospitalized for 2 days) amoxicillin trihydrate [From Augmentin] Allergy (Intermediate, Verified 09:47) Rash Potassium Clavulanate * [From Augmentin] Allergy (Intermediate, Verified 09:47) Rash propoxyphene napsylate [From Darvocet-N 100] Allergy (Intermediate, Verified 09:47) Rash Sulfa (Sulfonamide Antibiotics) Allergy (Intermediate, Verified 08/01/17 09:47) Generalized rash Past Medical History - Social History Smoking Status: Never Smoker Cigarette use (# per day): No Chew tobacco use (# tins/day): No Smoking Education Provided: No Frequency of alcohol use: None Drug Abuse: None Family History: Arthritis, CAD, COPD, DM, Hyperlipidemia, Hypertension, Thyroid Disfunction. denies: CVA, Malignancy Patient has suicidal ideation: No Patient has homicidal ideation: No - Past Medical History Cardiac Medical History: Reports: Hx Heart Attack - 2010, Hx Hypercholesterolemia, Hx Hypertension Denies: Hx Coronary Artery Disease Pulmonary Medical History: Reports: Hx Asthma, Hx Sleep Apnea Denies: Hx Bronchitis, Hx COPD, Hx Pneumonia, Hx Tuberculosis Neurological Medical History: Denies: Hx Cerebrovascular Accident, Hx Seizures Endocrine Medical History: Reports: Hx Diabetes Mellitus Type 2 Renal/ Medical History: Denies: Hx Peritoneal Dialysis GI Medical History: Reports: Hx Gastroesophageal Reflux Disease, Hx Ulcer Musculoskeltal Medical History: Reports Hx Arthritis, Reports Hx Musculoskeletal Deformity, Reports Hx Musculoskeletal Trauma Psychiatric Medical History: Reports: Hx Bipolar Disorder, Hx Depression, Hx Post Traumatic Stress Disorder, Hx Schizoaffective Disorder, Hx Schizophrenia Traumatic Medical History: Reports: Hx Fractures - Right foot Infectious Medical History: Past Surgical History: Reports: Hx Appendectomy, Hx Cholecystectomy, Hx Genitourinary Surgery - Bladder stimulator, Hx Gynecologic Surgery - Cervical laser surgery, Hx Orthopedic Surgery - Bunion surgery right foot, Hx Tonsillectomy. Denies: Hx Hysterectomy, Hx Pacemaker - Immunizations Hx Diphtheria, Pertussis, Tetanus Vaccination: No Hx Pneumococcal Vaccination: 10/13/97 Review of Systems - Review of Systems Notes: REVIEW OF SYSTEMS: CONSTITUTIONAL : Denies fever, chills, or sweats. Denies recent illness. EENT: Denies eye, ear, throat, or mouth pain or symptoms. Denies nasal or sinus congestion or discharge. Denies throat, tongue, or mouth swelling or difficulty swallowing. CARDIOVASCULAR: Denies chest pain. Denies palpitations or racing or irregular heart beat. Denies ankle edema. RESPIRATORY: Denies cough, cold, or chest congestion. Denies shortness of breath, difficulty breathing, or wheezing. GASTROINTESTINAL: Denies abdominal pain or distention. Denies nausea, vomiting , or diarrhea. Denies blood in vomitus, stools, or per rectum. Denies black, tarry stools. Denies constipation. GENITOURINARY: Denies difficulty urinating, painful urination, burning, frequency, blood in urine, or discharge. FEMALE GENITOURINARY: Denies vaginal bleeding, heavy or abnormal periods, irregular periods. Denies vaginal discharge or odor. MUSCULOSKELETAL: Admits the first digit pain SKIN: Denies rash, lesions or sores. HEMATOLOGIC : Denies easy bruising or bleeding. LYMPHATIC: Denies swollen, enlarged glands. NEUROLOGICAL: Denies confusion or altered mental status. Denies passing out or loss of consciousness. Denies dizziness or lightheadedness. Denies headache. Denies weakness or paralysis or loss of use of either side. Denies problems with gait or speech. Denies sensory loss, numbness, or tingling. Denies seizures. PSYCHIATRIC: Denies anxiety or stress. Denies depression, suicidal ideation, or homicidal ideation. ALL OTHER SYSTEMS REVIEWED AND NEGATIVE. PHYSICAL EXAMINATION: GENERAL: Well-appearing, well-nourished and in no acute distress. HEAD: Atraumatic, normocephalic. EYES: Pupils equal round and reactive to light, extraocular movements intact, conjunctiva are normal. ENT: Nares patent, oropharynx clear without exudates. Moist mucous membranes. NECK: Normal range of motion, supple without lymphadenopathy LUNGS: Breath sounds clear to auscultation bilaterally and equal. No wheezes rales or rhonchi. HEART: Regular rate and rhythm without murmurs ABDOMEN: Soft, nontender, nondistended abdomen. No guarding, no rebound. No masses appreciated. Female : deferred Musculoskeletal: Pain of the first digit right foot NEUROLOGICAL: Cranial nerves grossly intact. Normal speech, normal gait. Normal sensory, motor exams PSYCH: Normal mood, normal affect. SKIN: Warm, Dry, normal turgor, no rashes or lesions noted. Dictation was performed using [employer] voice recognition software Physical Exam - Vital signs Vitals: Temp Pulse Resp BP Pulse Ox 98.7 F 97 14 119/83 97 08/01/17 09:48 08/01/17 09:48 08/01/17 09:48 08/01/17 09:48 08/01/17 09:48 Course - Re-evaluation Re-evalutation: 08/01/17 10:13 X-ray pending 08/01/17 15:43 Imaging noted no significant abnormality patient otherwise looks well. I will discharge home at this time. 08/01/17 15:47 Patient has been given Stefano wrap and follow-up with her on orthopedic surgeon for further evaluation and care she does not wish to use crutches and has a walker After performing a Medical Screening Examination, I estimate there is LOW risk for INTRACRANIAL HEMORRHAGE, UNSTABLE SPINE FRACTURE, CENTRAL CORD SYNDROME, CAUDA EQUINA, THORACIC AORTIC DISSECTION, PNEUMOTHORAX, PERFORATED BOWEL, RUPTURED ABDOMINAL AORTIC ANEURYSM, ACUTE TENDON RUPTURE, COMPARTMENT SYNDROME, or OPEN FRACTURE, thus I consider the discharge disposition reasonable. Also, there is no evidence or peritonitis, sepsis, or toxicity. I have reevaluated this patient multiple times and no significant life threatening changes are noted. The patient and I have discussed the diagnosis and risks, and we agree with discharging home to follow-up with their primary doctor with the understanding that symptoms and presentations can change. We also discussed returning to the Emergency Department immediately if new or worsening symptoms occur. We have discussed the symptoms which are most concerning (e.g., bloody stool, fever, changing or worsening pain, vomiting) that necessitate immediate return. - Vital Signs Vital signs: Temp Pulse Resp BP Pulse Ox 98.2 F 79 18 127/73 H 93 08/01/17 10:37 08/01/17 10:37 08/01/17 10:37 08/01/17 10:37 08/01/17 10:37 - Diagnostic Test Radiology reviewed: Image reviewed, Reports reviewed - Report given to patient Discharge - Discharge Clinical Impression: Foot pain Qualifiers: Laterality: right Qualified Code(s): M79.671 - Pain in right foot Contusion Qualifiers: Encounter type: initial encounter Contusion area: foot Laterality: right Qualified Code(s): S90.31XA - Contusion of right foot, initial encounter Condition: Stable Disposition: HOME, SELF-CARE Instructions: Contusion ([facility]) Additional Instructions: Follow up with your physician tomorrow for further care or return to the ED IMMEDIATELY if symptoms worsen or new concerns occur. If you cannot afford to follow up with your primary care physician a list of low cost clinics have been provided at the end of your discharge papers as well.
[2017-08-01 10:41] VITALS: BP 127/73
--- NOTE | 2017-08-01 10:48 | RADIOLOGY REPORT (SQ) ---
EXAM DESCRIPTION: FOOT RIGHT COMPLETE COMPLETED DATE/TIME: 08/01/2017 REASON FOR STUDY: inversion COMPARISON: 04/28/2012 NUMBER OF VIEWS: Three views. TECHNIQUE: AP, lateral and oblique radiographic images acquired of the right foot. LIMITATIONS: None. FINDINGS: MINERALIZATION: Normal. BONES: No acute fracture or dislocation. No worrisome bone lesions. JOINTS: Hallux valgus. Mild degenerative joint changes in the 1st metatarsal-phalangeal joint. SOFT TISSUES: No soft tissue swelling. No foreign body. OTHER: No other significant finding. IMPRESSION: Degenerative joint changes. No acute abnormality. TECHNICAL DOCUMENTATION: JOB ID: [id number] [employer]- All Rights Reserved
== END 2017-08-01 10:40 | disposition home or self-care (01) ==
LOC: ER 09:36
DX: S90.31XA Contusion of right foot, initial encounter (principal); X50.0XXA Overexertion from strenuous movement or load, initial encounter; M79.1 Myalgia; E78.00 Pure hypercholesterolemia, unspecified; I10 Essential (primary) hypertension; E11.9 Type 2 diabetes mellitus without complications; Z88.2 Allergy status to sulfonamides; Z88.0 Allergy status to penicillin; Z91.013 Allergy to seafood; I25.2 Old myocardial infarction; Z90.49 Acquired absence of other specified parts of digestive tract
CPT/HCPCS: 99283

== ENCOUNTER 2017-11-15 23:39 | Emergency (ER) | payer MEDICAID ==
[2017-11-16 00:09] LABS: ABSOLUTE BASOPHILS # (AUTO) 0.1 10^3/uL (0.0-0.2); ABSOLUTE EOSINOPHILS # (AUTO) 0.2 10^3/uL (0.0-0.6); ABSOLUTE LYMPHOCYTES (AUTO) 3.2 10^3/uL (0.5-4.7); ABSOLUTE MONOCYTES (AUTO) 0.8 10^3/uL (0.1-1.4); BASOPHILS % (AUTO) 0.9 % (0-2); EOSINOPHILS % (AUTO) 2.2 % (0-6); HEMATOCRIT 38.2 % (36.0-47.0); HEMOGLOBIN 13.2 g/dL (12.0-15.5); LYMPHOCYTES % (AUTO) 31.4 % (13-45); MEAN CORPUSCULAR HEMOGLOBIN 32.1 pg (27.0-33.4); MEAN CORPUSCULAR HGB CONC 34.7 g/dL (32.0-36.0); MEAN CORPUSCULAR VOLUME 93 fl (80-97); MONOCYTES % (AUTO) 7.6 % (3-13); PLATELET COUNT 281 10^3/uL (150-450); RED BLOOD COUNT 4.12 10^6/uL (3.72-5.28); SEGMENTED NEUTROPHILS % (AUTO) 57.9 % (42-78); TOTAL CELLS COUNTED % (AUTO) 100 %; WHITE BLOOD COUNT 10.3 10^3/uL (4.0-10.5)
[2017-11-16] MEDS ORDERED: HYDROMORPHONE HCL INJ/PF 2 MG/ML AMPULE IV ONE ×2 (00:10→02:38)
--- NOTE | 2017-11-16 00:14 | ER Document Report ---
ED General - General Chief Complaint: Abdominal Pain Stated Complaint: LEFT ABDOMINAL/LEG PIAN Time Seen by Provider: 11/16/17 00:02 Notes: Patient is a 37-year-old female presents with complaint of pain in her left lower back and left lower quadrant left flank area. She also has pain going into her left leg. Patient says the pain started yesterday. She the pain actually started several hours after a fall in the shower. She said when she fell in the shower she landed onto her left side but only initially had pain in her left upper arm and shoulder. She says that pain is very mild in the upper extremity and that is improved. Patient says the pain in her leg and abdomen for start his leg pain. Pain is behind her left leg behind her left knee. She does feel as if it is a little bit swollen. Then she started developing pain in her left lower abdomen into her left flank. Proximally 6 days before the all this occurred patient had surgery by Dr. Dion Bales who placed the battery in her bladder stimulator. She said the bladder stimulator itself was not moved or changed. She said she just had the battery place. She has a bandage over the right buttocks area. She denies any redness or swelling over this area. TRAVEL OUTSIDE OF THE [place] IN LAST 30 DAYS: No - Related Data Allergies/Adverse Reactions: Shellfish * [Shellfish] Allergy (Severe, Verified 11/15/17 23:42) Hives (hospitalized for 2 days) amoxicillin trihydrate [From Augmentin] Allergy (Intermediate, Verified 23:42) Rash Potassium Clavulanate * [From Augmentin] Allergy (Intermediate, Verified 23:42) Rash propoxyphene napsylate [From Darvocet-N 100] Allergy (Intermediate, Verified 12/28 23:42) Rash Sulfa (Sulfonamide Antibiotics) Allergy (Intermediate, Verified 11/15/17 23:42) Generalized rash Past Medical History - Social History Smoking Status: Current Every Day Smoker Frequency of alcohol use: None Drug Abuse: None Family History: Arthritis, CAD, COPD, DM, Hyperlipidemia, Hypertension, Thyroid Disfunction. denies: CVA, Malignancy Patient has suicidal ideation: No Patient has homicidal ideation: No - Past Medical History Cardiac Medical History: Reports: Hx Heart Attack - 2010, Hx Hypercholesterolemia, Hx Hypertension Denies: Hx Coronary Artery Disease Pulmonary Medical History: Reports: Hx Asthma, Hx Sleep Apnea Denies: Hx Bronchitis, Hx COPD, Hx Pneumonia, Hx Tuberculosis Neurological Medical History: Denies: Hx Cerebrovascular Accident, Hx Seizures Endocrine Medical History: Reports: Hx Diabetes Mellitus Type 2 Renal/ Medical History: Denies: Hx Peritoneal Dialysis GI Medical History: Reports: Hx Gastroesophageal Reflux Disease, Hx Ulcer Musculoskeltal Medical History: Reports Hx Arthritis, Reports Hx Musculoskeletal Deformity, Reports Hx Musculoskeletal Trauma Psychiatric Medical History: Reports: Hx Bipolar Disorder, Hx Depression, Hx Post Traumatic Stress Disorder, Hx Schizoaffective Disorder, Hx Schizophrenia Traumatic Medical History: Reports: Hx Fractures - Right foot Infectious Medical History: Past Surgical History: Reports: Hx Appendectomy, Hx Cholecystectomy, Hx Genitourinary Surgery - Bladder stimulator, Hx Gynecologic Surgery - Cervical laser surgery, Hx Orthopedic Surgery - Bunion surgery right foot, Hx Tonsillectomy. Denies: Hx Hysterectomy, Hx Pacemaker - Immunizations Hx Diphtheria, Pertussis, Tetanus Vaccination: No Hx Pneumococcal Vaccination: 10/13/97 Review of Systems - Review of Systems Notes: My Normal Review Basic REVIEW OF SYSTEMS: CONSTITUTIONAL : Denies fever, chills, or sweats. Denies recent illness. RESPIRATORY: Denies cough, cold, or chest congestion. Denies shortness of breath, difficulty breathing, or wheezing. GASTROINTESTINAL: Left lower quadrant abdominal pain. GENITOURINARY: Denies difficulty urinating, painful urination, burning, frequency, or blood in urine. FEMALE GENITOURINARY: Denies vaginal bleeding, abnormal or irregular periods. LMP: MUSCULOSKELETAL: Leg pain. SKIN: Denies rash or skin lesions. NEUROLOGICAL: Denies altered mental status or loss of consciousness. Denies headache. Denies weakness or paralysis or loss of use of either side. Denies problems with gait or speech. Denies sensory or motor loss. ALL OTHER SYSTEMS REVIEWED AND NEGATIVE. Physical Exam - Vital signs Vitals: Temp Pulse BP Pulse Ox 98.3 F 76 120/75 96 11/15/17 23:46 11/15/17 23:46 11/15/17 23:46 11/15/17 23:46 - Notes Notes: General Appearance: Well nourished, alert, cooperative, no acute distress, moderate obvious discomfort. Vitals: reviewed, See vital signs table. Eyes: PERRL, EOMI, Conjuctiva clear Mouth: No decreasd moisture Lungs: No wheezing, No rales, No rhonci, No accessory muscle use, good air exchange bilaterally. Heart: Normal rate, Regular rythm, No murmur, no rub Abdomen: Normal BS, soft, No rigidity, moderate suprapubic and left lower quadrant abdominal tenderness palpation, No guarding, no rebound, no abdominal masses, no organomegaly Extremities: strength 5/5 in all extremities, good pulses in all extremities, patient does have some pain in the popliteal fossa of the left lower extremity. She is able to flex the knee and hip without difficulty. No redness or swelling to this area. No obvious deformities. Skin: warm, dry, appropriate color, no rash Neuro: speech clear, oriented x 3, normal affect, responds appropriately to questions. Course - Re-evaluation Re-evalutation: 11/16/17 03:20 I ultimately expect the patient's left lower quadrant abdominal pain left back pain left leg pain is probably related to the fall that she had being that the pain just started a few hours after the fall. She does however have pain on the popliteal fossa and did have a recent surgery and therefore I think ultrasound is necessary to rule out DVT. We do not have ultrasound ability right now. We will have drug abuse technician first in the morning. Patient is agreeable staying till morning for ultrasound to rule out DVT. If this negative feel the patient safe to be discharged home. I do not think she needs a CT scan of her abdomen and that her abdominal exam is benign, there is no rebound or guarding, her pain is not very intense. She is requiring some pain medicine while she is here but she is also on chronic pain medications and therefore did require opiates for her chronic pain and therefore is received that here. Also patient has no leukocytosis. If ultrasound of the leg is negative patient will be discharged home and encouraged follow-up with her doctor on Friday. She will be encouraged to return to ER if she has worsening pain, fevers, vomiting, or feels unwell. - Vital Signs Vital signs: Temp Pulse Resp BP Pulse Ox 98.3 F 76 20 112/60 93 11/15/17 23:46 11/15/17 23:46 11/16/17 04:01 11/16/17 05:01 11/16/17 05:01 - Laboratory Result Diagrams: 11/15/17 23:54 11/15/17 23:54 Laboratory results interpreted by me: 11/15/17 23:54 Chloride 108 H BUN 5 L Total Protein 6.0 L Lipase 20.1 L Discharge - Discharge Clinical Impression: Leg pain, left Abdominal pain Qualifiers: Abdominal location: left lower quadrant Qualified Code(s): R10.32 - Left lower quadrant pain Additional Instructions: Please follow up closely with your doctor in 2-3 days for reevaluation. I suspect your pain is related to your fall. Continue to take your home pain medicine for pain control. Please return to the ER immediately if you have worsening pain, fevers, vomiting, or feel unwell. Referrals: RADAMES YOUNG FNP [Primary Care Provider] - 11/17/17
[2017-11-16 00:26] LABS: ALANINE AMINOTRANSFERASE 38 U/L (9-52); ALBUMIN 3.7 g/dL (3.5-5.0); ALKALINE PHOSPHATASE 66 U/L (38-126); ANION GAP 7 (5-19); ASPARTATE AMINO TRANSFERASE 22 U/L (14-36); BILIRUBIN,DIRECT 0.1 mg/dL (0.0-0.4); BILIRUBIN,TOTAL 0.2 mg/dL (0.2-1.3); BLOOD UREA NITROGEN 5 mg/dL (7-20); CALCIUM 9.8 mg/dL (8.4-10.2); CARBON DIOXIDE 24 mmol/L (22-30); CHLORIDE 108 mmol/L (98-107); GLUCOSE 107 mg/dL (75-110); LIPASE 20.1 U/L (23-300); POTASSIUM 4.3 mmol/L (3.6-5.0); SODIUM 139.3 mmol/L (137-145)
--- NOTE | 2017-11-16 01:23 | RADIOLOGY REPORT (SQ) ---
EXAM DESCRIPTION: KNEE LEFT 3 VIEWS COMPLETED DATE/TIME: 11/16/2017 1:14 am REASON FOR STUDY: pain, trauma, fall, pain posterior left knee. COMPARISON: None. NUMBER OF VIEWS: Three views. TECHNIQUE: AP, lateral, and sunrise patella radiographic images acquired of the left knee. LIMITATIONS: None. FINDINGS: MINERALIZATION: Normal. BONES: No acute fracture or dislocation. JOINT: No effusion. SOFT TISSUES: No soft tissue swelling. No radio-opaque foreign body. IMPRESSION: No radiographic evidence of acute injury. TECHNICAL DOCUMENTATION: JOB ID: [id number] [email or web address]- All Rights Reserved
[2017-11-16 01:26] LABS: APPEARANCE,URINE SLIGHTLY-CLOUDY; BILIRUBIN,URINE NEGATIVE (NEGATIVE); COLOR,URINE YELLOW; GLUCOSE, URINE NEGATIVE (NEGATIVE); KETONES,URINE NEGATIVE (NEGATIVE); LEUKOCYTE ESTERASE,URINE NEGATIVE (NEGATIVE); NITRITE,URINE NEGATIVE (NEGATIVE); PROTEIN,URINE NEGATIVE (NEGATIVE); URINE SPECIFIC GRAVITY 1.005; UROBILINOGEN,URINE NEGATIVE mg/dL (<2.0)
[2017-11-16 08:15] VITALS: BP 113/73
--- NOTE | 2017-11-16 09:26 | RADIOLOGY REPORT (SQ) ---
EXAM DESCRIPTION: VENOUS UNILATERAL LOWER COMPLETED DATE/TIME: 11/16/2017 9:04 am REASON FOR STUDY: left leg pain and swelling COMPARISON: None. TECHNIQUE: Dynamic and static bernard scale and color images acquired of the left leg venous system. Se lected spectral images acquired with additional compression and augmentation maneuvers. The contralat eral common femoral vein and saphenofemoral junction were also imaged. Images stored on PACS. LIMITATIONS: None. FINDINGS: COMMON FEMORAL: Normal phasicity, compression and augmentation. No visualized echogenic ma terial on bernard scale. No defects on color images. FEMORAL: Normal compression and augmentation. No visualized echogenic material on bernard scale. No defe cts on color images. POPLITEAL: Normal compression, augmentation. No visualized echogenic material on bernard scale. No defec ts on color images. CALF VESSELS: Normal compression, augmentation. No visualized echogenic material on bernard scale. No de fects on color images. GSV and SSV: Normal compression, augmentation. No visualized echogenic material on bernard scale. No def ects on color images. ANY DEEP VENOUS INSUFFICIENCY: Not evaluated. ANY EVIDENCE OF POPLITEAL CYST: No. OTHER: No other significant finding. CONTRALATERAL COMMON FEMORAL VEIN AND SAPHENOFEMORAL JUNCTION: Normal phasicity, compression and augmentation. No visualized echogenic material on bernard scale. No de fects on color images. IMPRESSION: NO EVIDENCE DVT OR SVT IN THE LEFT LEG. TECHNICAL DOCUMENTATION: JOB ID: [id number] [employer]- All Rights Reserved
== END 2017-11-16 09:10 | disposition home or self-care (01) ==
LOC: ER 23:39
DX: M79.605 Pain in left leg (principal); R10.32 Left lower quadrant pain; M79.602 Pain in left arm; M54.5 Low back pain; W18.2XXA Fall in (into) shower or empty bathtub, initial encounter; F17.200 Nicotine dependence, unspecified, uncomplicated
CPT/HCPCS: 96376; 99285; 96374; 36415; 83690; 85025; 81025; 80053; 81001; 93971; 73562; J1170

== ENCOUNTER 2018-01-24 21:40 | Emergency (ER) | payer MEDICAID ==
[2018-01-24] MEDS ORDERED: ONDANSETRON HCL INJ/PF 4 MG/2 ML SDV IV ONE (23:10)
[2018-01-24] MEDS ORDERED: NORMAL SALINE 1000 ML 1,000 ML IV ONE (23:10)
[2018-01-24] MEDS ORDERED: KETOROLAC TROMETHAMINE INJ/PF 30 MG/1 ML SDV IV ONE (23:11)
--- NOTE | 2018-01-24 23:13 | ER Document Report ---
ED GI/ - General Chief Complaint: Vaginal Bleeding Stated Complaint: VAGINAL BLEEDING Time Seen by Provider: 01/24/18 22:56 Mode of Arrival: Ambulatory Information source: Patient Notes: Patient presents complaining of vaginal bleeding for the past month. Patient states that 12 days ago she was started on a oral contraceptive taper to help control the vaginal bleeding. Patient states that she had spotting off and on and then started to have increased bleeding on January 21. Patient went to her primary doctor who advised her to stop taking the oral contraceptive pill and to follow-up with her associate professor of philosophy. Patient complains of some nausea but denies any vomiting. Patient states that earlier today she went through 7 pads in 1 hour. Denies any concerns about possible sexually transmitted infection or any concerns about . Patient denies any other abnormal bleeding or bruising. TRAVEL OUTSIDE OF THE [place] IN LAST 30 DAYS: No - HPI Patient complains to provider of: Vaginal bleeding. No: Vaginal pain Onset: Other - Past month Timing/Duration: Worse Quality of pain: Cramping Pain Level: 2 Location: Pelvis Vaginal bleeding (Compared to normal period): Heavier Menstrual period history: denies: Associated symptoms: denies: Fever, Urinary hesitancy, Urinary frequency, Urinary retention, Urinary urgency, Vaginal discharge, Vomiting Exacerbated by: Denies Relieved by: Denies Similar symptoms previously: No Recently seen / treated by doctor: Yes - Related Data Allergies/Adverse Reactions: Shellfish * [Shellfish] Allergy (Severe, Verified 11/15/17 23:42) Hives (hospitalized for 2 days) amoxicillin trihydrate [From Augmentin] Allergy (Intermediate, Verified 23:42) Rash Potassium Clavulanate * [From Augmentin] Allergy (Intermediate, Verified 23:42) Rash propoxyphene napsylate [From Darvocet-N 100] Allergy (Intermediate, Verified 12/28 23:42) Rash Sulfa (Sulfonamide Antibiotics) Allergy (Intermediate, Verified 11/15/17 23:42) Generalized rash Past Medical History - General Information source: Patient - Social History Smoking Status: Current Every Day Smoker Frequency of alcohol use: None Drug Abuse: None Occupation: None Lives with: Family Family History: Arthritis, CAD, COPD, DM, Hyperlipidemia, Hypertension, Thyroid Disfunction. denies: CVA, Malignancy - Past Medical History Cardiac Medical History: Reports: Hx Heart Attack - 2011, Hx Hypercholesterolemia, Hx Hypertension Denies: Hx Coronary Artery Disease Pulmonary Medical History: Reports: Hx Asthma, Hx Sleep Apnea Denies: Hx Bronchitis, Hx COPD, Hx Pneumonia, Hx Tuberculosis Neurological Medical History: Denies: Hx Cerebrovascular Accident, Hx Seizures Endocrine Medical History: Reports: Hx Diabetes Mellitus Type 2 Renal/ Medical History: Denies: Hx Peritoneal Dialysis GI Medical History: Reports: Hx Gastroesophageal Reflux Disease, Hx Ulcer Musculoskeltal Medical History: Reports Hx Arthritis, Reports Hx Musculoskeletal Deformity, Reports Hx Musculoskeletal Trauma Psychiatric Medical History: Reports: Hx Bipolar Disorder, Hx Depression, Hx Post Traumatic Stress Disorder, Hx Schizoaffective Disorder, Hx Schizophrenia Traumatic Medical History: Reports: Hx Fractures - Right foot Infectious Medical History: Past Surgical History: Reports: Hx Appendectomy, Hx Cholecystectomy, Hx Genitourinary Surgery - Bladder stimulator, Hx Gynecologic Surgery - Cervical laser surgery, Hx Orthopedic Surgery - Bunion surgery right foot, Hx Tonsillectomy. Denies: Hx Hysterectomy, Hx Pacemaker - Immunizations Hx Diphtheria, Pertussis, Tetanus Vaccination: No Hx Pneumococcal Vaccination: 10/13/97 Review of Systems - Review of Systems Constitutional: No symptoms reported. denies: Fever, Recent illness EENT: No symptoms reported Cardiovascular: No symptoms reported. denies: Chest pain, Dizziness Respiratory: No symptoms reported. denies: Cough, Short of breath Gastrointestinal: Abdominal pain, Nausea. denies: Diarrhea, Vomiting Genitourinary: No symptoms reported. denies: Dysuria, Flank pain Female Genitourinary: Heavy/abnormal periods, Vaginal bleeding. denies: Musculoskeletal: No symptoms reported. denies: Back pain Skin: No symptoms reported Hematologic/Lymphatic: No symptoms reported Neurological/Psychological: No symptoms reported Physical Exam - Vital signs Vitals: Temp Pulse Resp BP Pulse Ox 97.9 F 71 16 117/70 95 01/24/18 22:14 01/24/18 22:14 01/24/18 22:14 01/24/18 22:14 01/24/18 22:14 - General General appearance: Appears well, Alert In distress: None - HEENT Head: Normocephalic Eyes: Normal Nasal: Normal Mouth/Lips: Normal Pharynx: Normal Neck: Normal, Supple. No: Lymphadenopathy - Respiratory Respiratory status: No respiratory distress Chest status: Nontender Breath sounds: Normal Chest palpation: Normal - Cardiovascular Rhythm: Regular. No: Tachycardia Heart sounds: S1 appreciated, S2 appreciated Murmur: No - Abdominal Inspection: Obese Distension: No distension Bowel sounds: Normal Tenderness: Tender - lower pelvic Organomegaly: No organomegaly - Genitourinary External exam: Normal Speculum exam: Cervix closed Vaginal bleeding: Mild Bimanuel exam: Normal. No: Cervical motion tender, Adnexal tenderness - Back Back: Normal, Nontender. No: CVA tenderness - Extremities General upper extremity: Normal inspection, Normal strength General lower extremity: Normal inspection, Normal strength - Neurological Neuro grossly intact: Yes Cognition: Normal Johnnie Coma Scale Eye Opening: Spontaneous Johnnie Coma Scale Verbal: Oriented [place] Coma Scale Motor: Obeys Commands Johnnie Coma Scale Total: 15 - Psychological Associated symptoms: Normal affect, Normal mood - Skin Skin Temperature: Warm Skin Moisture: Dry Skin Color: Normal Course - Re-evaluation Re-evalutation: 01/25/18 02:07 Patient without any excessive vaginal bleeding during ER stay. Abdomen soft, nontender, no guarding. Patient hemodynamically stable without anemia. Patient does have an appointment to see her associate professor of philosophy tomorrow and is encouraged to keep this appointment. - Vital Signs Vital signs: Temp Pulse Resp BP Pulse Ox 98.2 F 65 20 113/61 96 01/25/18 02:17 01/25/18 02:17 01/25/18 02:17 01/25/18 02:17 01/25/18 02:17 - Laboratory Result Diagrams: 01/25/18 00:11 01/25/18 00:11 Laboratory results interpreted by me: 01/25/18 01/25/18 00:11 00:11 WBC 12.3 H Hgb 11.8 L Hct 35.4 L Glucose 126 H Total Bilirubin 0.1 L Total Protein 5.6 L Labs- Entire Visit 01/25/18 01/25/18 01/25/18 00:11 00:11 00:11 WBC 12.3 H RBC 3.88 Hgb 11.8 L Hct 35.4 L MCV 91 MCH 30.4 MCHC 33.3 RDW 13.8 Plt Count 264 Seg Neutrophils % 65.9 Lymphocytes % 25.2 Monocytes % 6.9 Eosinophils % 1.6 Basophils % 0.4 Absolute Neutrophils 8.1 Absolute Lymphocytes 3.1 Absolute Monocytes 0.9 Absolute Eosinophils 0.2 Absolute Basophils 0.0 Sodium 142.0 Potassium 4.0 Chloride 107 Carbon Dioxide 25 Anion Gap 10 BUN 9 Creatinine 0.65 Est GFR ( Amer) > 60 Est GFR (Non-Af Amer) > 60 Glucose 126 H Calcium 9.8 Total Bilirubin 0.1 L Direct Bilirubin 0.1 Neonat Total Bilirubin Not Reportable Neonat Direct Bilirubin Not Reportable Neonat Indirect Bili Not Reportable AST 14 ALT 25 Alkaline Phosphatase 56 Total Protein 5.6 L Albumin 3.7 Serum HCG, Qual NEGATIVE Trichomonas (Wet Prep) Vaginal WBC Vaginal RBC Vaginal Yeast 01/25/18 01:43 WBC RBC Hgb Hct MCV MCH MCHC RDW Plt Count Seg Neutrophils % Lymphocytes % Monocytes % Eosinophils % Basophils % Absolute Neutrophils Absolute Lymphocytes Absolute Monocytes Absolute Eosinophils Absolute Basophils Sodium Potassium Chloride Carbon Dioxide Anion Gap BUN Creatinine Est GFR ( Amer) Est GFR (Non-Af Amer) Glucose Calcium Total Bilirubin Direct Bilirubin Neonat Total Bilirubin Neonat Direct Bilirubin Neonat Indirect Bili AST ALT Alkaline Phosphatase Total Protein Albumin Serum HCG, Qual Trichomonas (Wet Prep) NO TRICHOMONAS SEEN Vaginal WBC NO WBCS SEEN Vaginal RBC NO RBCS SEEN Vaginal Yeast NO YEAST SEEN Discharge - Discharge Clinical Impression: Vaginal bleeding Condition: Stable Disposition: HOME, SELF-CARE Instructions: Vaginal Bleeding ([facility]) Additional Instructions: Return immediately for any new or worsening symptoms Followup with your primary care provider, call tomorrow to make a followup appointment Follow-up with your associate professor of philosophy tomorrow as planned Forms: Parent Work Note Referrals: [facility] [Provider Group] - Follow up tomorrow
[2018-01-25 00:37] LABS: ABSOLUTE EOSINOPHILS # (AUTO) 0.2 10^3/uL (0.0-0.6); ABSOLUTE LYMPHOCYTES (AUTO) 3.1 10^3/uL (0.5-4.7); ABSOLUTE MONOCYTES (AUTO) 0.9 10^3/uL (0.1-1.4); ABSOLUTE NEUT (AUTO) 8.1 10^3/uL (1.7-8.2); BASOPHILS % (AUTO) 0.4 % (0-2); EOSINOPHILS % (AUTO) 1.6 % (0-6); HEMATOCRIT 35.4 % (36.0-47.0); HEMOGLOBIN 11.8 g/dL (12.0-15.5); LYMPHOCYTES % (AUTO) 25.2 % (13-45); MEAN CORPUSCULAR HEMOGLOBIN 30.4 pg (27.0-33.4); MEAN CORPUSCULAR HGB CONC 33.3 g/dL (32.0-36.0); MEAN CORPUSCULAR VOLUME 91 fl (80-97); MONOCYTES % (AUTO) 6.9 % (3-13); PLATELET COUNT 264 10^3/uL (150-450); RED BLOOD COUNT 3.88 10^6/uL (3.72-5.28); RED CELL DISTRIBUTION WIDTH 13.8 % (11.5-14.0); SEGMENTED NEUTROPHILS % (AUTO) 65.9 % (42-78); TOTAL CELLS COUNTED % (AUTO) 100 %; WHITE BLOOD COUNT 12.3 10^3/uL (4.0-10.5)
[2018-01-25 01:04] LABS: ALANINE AMINOTRANSFERASE 25 U/L (9-52); ALBUMIN 3.7 g/dL (3.5-5.0); ALKALINE PHOSPHATASE 56 U/L (38-126); ANION GAP 10 (5-19); ASPARTATE AMINO TRANSFERASE 14 U/L (14-36); BILIRUBIN,DIRECT 0.1 mg/dL (0.0-0.4); BILIRUBIN,TOTAL 0.1 mg/dL (0.2-1.3); BLOOD UREA NITROGEN 9 mg/dL (7-20); CALCIUM 9.8 mg/dL (8.4-10.2); CARBON DIOXIDE 25 mmol/L (22-30); CHLORIDE 107 mmol/L (98-107); GLUCOSE 126 mg/dL (75-110); TOTAL PROTEIN 5.6 g/dL (6.3-8.2)
[2018-01-25 01:58] LABS: RBCS (WET MOUNT) NO RBCS SEEN; T.VAGINALIS (WET MOUNT) NO TRICHOMONAS SEEN; WBCS (WET MOUNT) NO WBCS SEEN; YEAST (WET MOUNT) NO YEAST SEEN
[2018-01-25 02:18] VITALS: BP 113/61
[2018-01-25 03:22] LABS: CHLAM PCR NOT DETECTED (NOT DETECT); GON PCR NOT DETECTED (NOT DETECT)
== END 2018-01-25 02:30 | disposition home or self-care (01) ==
LOC: ER 21:40
DX: N93.9 Abnormal uterine and vaginal bleeding, unspecified (principal); F17.200 Nicotine dependence, unspecified, uncomplicated; R11.0 Nausea; N92.5 Other specified irregular menstruation; Z68.35 Body mass index [BMI] 35.0-35.9, adult; E66.9 Obesity, unspecified; R10.9 Unspecified abdominal pain; Z90.49 Acquired absence of other specified parts of digestive tract; Z98.890 Other specified postprocedural states
CPT/HCPCS: 99284; 96361; 96374; 96375; 36415; 87210; 84703; 85025; 80053; 87491; 87591; J1885; J2405; J7030

== ENCOUNTER 2018-03-20 00:57 | Emergency (ER) | payer MEDICAID ==
--- NOTE | 2018-03-20 01:59 | ER Document Report ---
ED General - General Chief Complaint: Psych Problem Stated Complaint: PSYCH EVAL Time Seen by Provider: 03/20/18 01:36 Mode of Arrival: Ambulatory Information source: Patient, Relative Notes: 37-year-old female with multiple psychiatric diagnoses including anxiety, PTSD, bipolar disorder, schizoaffective disorder resents with suicidal ideation. Patient states that over the last few weeks she has become more anxious, has begun thinking about hurting herself. Patient states that her plan would be to overdose on medications. She does have prior similar history and attempted previously approximately 10 years ago. Patient was started on Zoloft and has had it increased recently to 150 mg daily. She believes that the medication is causing her to feel this way. She admits to auditory and tactile hallucinations. Patient's sister is at the bedside and states that she has noticed the patient taking her Darling more than usual. Patient denies any physical complaints including headache, fever, nausea, vomiting, chest pain, abdominal pain she does admit to chronic neck and back pain for which she sees pain management and takes Darling. Patient's Darling prescription was filled March 14 and had 120 tabs initially today more than half of the bottle is gone. TRAVEL OUTSIDE OF THE [place] IN LAST 30 DAYS: No - HPI Onset: Other Onset/Duration: Gradual, Worse Quality of pain: No pain Associated symptoms: None Exacerbated by: Denies Relieved by: Denies Similar symptoms previously: Yes Recently seen / treated by doctor: Yes - Related Data Allergies/Adverse Reactions: Shellfish * [Shellfish] Allergy (Severe, Verified 11/15/17 23:42) Hives (hospitalized for 2 days) amoxicillin trihydrate [From Augmentin] Allergy (Intermediate, Verified 23:42) Rash Potassium Clavulanate * [From Augmentin] Allergy (Intermediate, Verified 23:42) Rash propoxyphene napsylate [From Darvocet-N 100] Allergy (Intermediate, Verified 12/28 23:42) Rash Sulfa (Sulfonamide Antibiotics) Allergy (Intermediate, Verified 11/15/17 23:42) Generalized rash Past Medical History - General Information source: Patient, [facility] Records - Social History Smoking Status: Current Every Day Smoker Smoking Education Provided: Yes - Patient counselled regarding cessation for 4 minutes Frequency of alcohol use: Occasional Drug Abuse: Marijuana, Prescription drugs Lives with: Family Family History: Arthritis, CAD, COPD, DM, Hyperlipidemia, Hypertension, Thyroid Disfunction. denies: CVA, Malignancy - Past Medical History Cardiac Medical History: Reports: Hx Heart Attack - 2011, Hx Hypercholesterolemia, Hx Hypertension Denies: Hx Coronary Artery Disease Pulmonary Medical History: Reports: Hx Asthma, Hx Sleep Apnea Denies: Hx Bronchitis, Hx COPD, Hx Pneumonia, Hx Tuberculosis Neurological Medical History: Denies: Hx Cerebrovascular Accident, Hx Seizures Endocrine Medical History: Reports: Hx Diabetes Mellitus Type 2 Renal/ Medical History: Denies: Hx Peritoneal Dialysis GI Medical History: Reports: Hx Gastroesophageal Reflux Disease, Hx Ulcer Musculoskeltal Medical History: Reports Hx Arthritis, Reports Hx Musculoskeletal Deformity, Reports Hx Musculoskeletal Trauma Psychiatric Medical History: Reports: Hx Bipolar Disorder, Hx Depression, Hx Post Traumatic Stress Disorder, Hx Schizoaffective Disorder, Hx Schizophrenia Traumatic Medical History: Reports: Hx Fractures - Right foot Infectious Medical History: Past Surgical History: Reports: Hx Appendectomy, Hx Cholecystectomy, Hx Genitourinary Surgery - Bladder stimulator, Hx Gynecologic Surgery - Cervical laser surgery, Hx Orthopedic Surgery - Bunion surgery right foot, Hx Tonsillectomy. Denies: Hx Hysterectomy, Hx Pacemaker - Immunizations Hx Diphtheria, Pertussis, Tetanus Vaccination: No Hx Pneumococcal Vaccination: 10/13/97 Review of Systems - Review of Systems Constitutional: denies: Fever, Weakness EENT: denies: Blurred vision Cardiovascular: denies: Chest pain, Palpitations, Lightheaded Respiratory: denies: Short of breath Gastrointestinal: denies: Abdominal pain, Nausea, Vomiting Genitourinary: denies: Dysuria, Flank pain Female Genitourinary: No symptoms reported Musculoskeletal: Back pain, Neck pain - Chronic neck and back pain Skin: No symptoms reported Hematologic/Lymphatic: No symptoms reported Neurological/Psychological: Hallucinations, Suicidal ideation -: Yes All other systems reviewed and negative Physical Exam - Vital signs Vitals: Temp Pulse Resp BP Pulse Ox 98 F 85 18 140/80 H 98 03/20/18 01:04 03/20/18 01:04 03/20/18 01:04 03/20/18 01:04 03/20/18 01:04 Interpretation: Normal, Hypertensive. No: Febrile - Notes Notes: PHYSICAL EXAMINATION: GENERAL: Well-appearing, well-nourished and in no acute distress. HEAD: Atraumatic, normocephalic. EYES: Pupils equal round and reactive to light, extraocular movements intact, conjunctiva are normal. ENT: Nares patent, oropharynx clear without exudates. Moist mucous membranes. NECK: Normal range of motion, supple without lymphadenopathy LUNGS: Breath sounds clear to auscultation bilaterally and equal. No wheezes rales or rhonchi. HEART: Regular rate and rhythm without murmurs ABDOMEN: Soft, nontender, nondistended abdomen. No guarding, no rebound. No masses appreciated. Female : deferred Musculoskeletal: Normal range of motion, no pitting or edema. No cyanosis. NEUROLOGICAL: Cranial nerves grossly intact. Normal speech, normal gait. Normal sensory, motor exams PSYCH: Metastases to SI, visual and tactile hallucinations. SKIN: Warm, Dry, normal turgor, no rashes or lesions noted. Course - Re-evaluation Re-evalutation: Laboratory 03/20/18 03/20/18 02:02 02:02 WBC 18.0 H RBC 4.43 Hgb 13.7 Hct 40.6 MCV 92 MCH 31.0 MCHC 33.7 RDW 14.1 H Plt Count 297 Seg Neutrophils % 70.4 Lymphocytes % 20.7 Monocytes % 7.2 Eosinophils % 0.7 Basophils % 1.0 Absolute Neutrophils 12.7 H Absolute Lymphocytes 3.7 Absolute Monocytes 1.3 Absolute Eosinophils 0.1 Absolute Basophils 0.2 Sodium 143.5 Potassium 3.8 Chloride 105 Carbon Dioxide 25 Anion Gap 14 BUN 12 Creatinine 0.78 Est GFR ( Amer) > 60 Est GFR (Non-Af Amer) > 60 Glucose 125 H Calcium 9.5 Total Bilirubin 0.2 Direct Bilirubin 0.2 Neonat Total Bilirubin Not Reportable Neonat Direct Bilirubin Not Reportable Neonat Indirect Bili Not Reportable AST 18 ALT 27 Alkaline Phosphatase 83 Total Protein 6.5 Albumin 3.9 Salicylates < 1.0 L Acetaminophen < 10 L Serum Alcohol < 10 37-year-old female with multiple psychiatric diagnoses including anxiety, PTSD, bipolar disorder, schizoaffective disorder presents with suicidal ideation. Patient states that over the last few weeks she has become more anxious, has begun thinking about hurting herself. Patient states that her plan would be to overdose on medications. She does have prior similar history and attempted previously approximately 10 years ago. Patient was started on Zoloft and has had it increased recently to 150 mg daily. She believes that the medication is causing her to feel this way. She admits to auditory and tactile hallucinations. Patient's sister is at the bedside and states that she has noticed the patient taking her Darling more than usual. VSS upon arrival. Initially cooperative but became very upset when she was unable to keep her phone and stuffed animal. CBC with leukocytosis and without anemia. CMP without electrolyte abnormalities. UA wnl. Urine drug scree + for opiates. 03/20/18 02:15 Patient became acutely agitated when she was told that she needed to give up her stuffed animal Eeyore and phone. 2 mg of Ativan IM will be administered. Patient has been cooperative and has not required physical restraints. Patient' s sister states that patient's will be here in am. 03/20/18 04:09 03/20/18 07:32 03/20/18 07:32 03/20/18 07:33 Patient medically cleared for psych eval. - Vital Signs Vital signs: Temp Pulse Resp BP Pulse Ox 98 F 85 18 140/80 H 98 03/20/18 01:04 03/20/18 01:04 03/20/18 01:04 03/20/18 01:04 03/20/18 01:04 - Laboratory Result Diagrams: 03/20/18 02:02 03/20/18 02:02 Laboratory results interpreted by me: 03/20/18 03/20/18 02:02 02:02 WBC 18.0 H RDW 14.1 H Absolute Neutrophils 12.7 H Glucose 125 H Salicylates < 1.0 L Acetaminophen < 10 L Discharge - Discharge Clinical Impression: Suicidal ideation Leukocytosis Qualifiers: Leukocytosis type: other Qualified Code(s): D72.828 - Other elevated white blood cell count Condition: Good Forms: Elevated Blood Pressure
[2018-03-20 02:11] LABS: ABSOLUTE BASOPHILS # (AUTO) 0.2 10^3/uL (0.0-0.2); ABSOLUTE EOSINOPHILS # (AUTO) 0.1 10^3/uL (0.0-0.6); ABSOLUTE LYMPHOCYTES (AUTO) 3.7 10^3/uL (0.5-4.7); ABSOLUTE MONOCYTES (AUTO) 1.3 10^3/uL (0.1-1.4); ABSOLUTE NEUT (AUTO) 12.7 10^3/uL (1.7-8.2); EOSINOPHILS % (AUTO) 0.7 % (0-6); HEMATOCRIT 40.6 % (36.0-47.0); HEMOGLOBIN 13.7 g/dL (12.0-15.5); LYMPHOCYTES % (AUTO) 20.7 % (13-45); MEAN CORPUSCULAR HGB CONC 33.7 g/dL (32.0-36.0); MEAN CORPUSCULAR VOLUME 92 fl (80-97); MONOCYTES % (AUTO) 7.2 % (3-13); PLATELET COUNT 297 10^3/uL (150-450); RED BLOOD COUNT 4.43 10^6/uL (3.72-5.28); RED CELL DISTRIBUTION WIDTH 14.1 % (11.5-14.0); SEGMENTED NEUTROPHILS % (AUTO) 70.4 % (42-78); TOTAL CELLS COUNTED % (AUTO) 100 %
[2018-03-20] MEDS ORDERED: LORAZEPAM INJ 2 MG/1 ML VIAL IM ONE (02:20)
[2018-03-20 02:22] LABS: ALANINE AMINOTRANSFERASE 27 U/L (9-52); ALBUMIN 3.9 g/dL (3.5-5.0); ALKALINE PHOSPHATASE 83 U/L (38-126); ANION GAP 14 (5-19); ASPARTATE AMINO TRANSFERASE 18 U/L (14-36); BILIRUBIN,DIRECT 0.2 mg/dL (0.0-0.4); BILIRUBIN,TOTAL 0.2 mg/dL (0.2-1.3); BLOOD UREA NITROGEN 12 mg/dL (7-20); CALCIUM 9.5 mg/dL (8.4-10.2); CARBON DIOXIDE 25 mmol/L (22-30); CHLORIDE 105 mmol/L (98-107); GLUCOSE 125 mg/dL (75-110); POTASSIUM 3.8 mmol/L (3.6-5.0); SODIUM 143.5 mmol/L (137-145); TOTAL PROTEIN 6.5 g/dL (6.3-8.2)
[2018-03-20 02:24] LABS: ACETAMINOPHEN < 10 ug/mL (10-30); ALCOHOL < 10 mg/dL (NONE DETECTED); SALICYLATE < 1.0 mg/dL (2.0-20.0)
[2018-03-20 04:12] LABS: APPEARANCE,URINE SLIGHTLY-CLOUDY; BILIRUBIN,URINE NEGATIVE (NEGATIVE); COLOR,URINE STRAW; GLUCOSE, URINE NEGATIVE (NEGATIVE); KETONES,URINE NEGATIVE (NEGATIVE); LEUKOCYTE ESTERASE,URINE NEGATIVE (NEGATIVE); NITRITE,URINE NEGATIVE (NEGATIVE); PROTEIN,URINE NEGATIVE (NEGATIVE); URINE SPECIFIC GRAVITY 1.002; UROBILINOGEN,URINE NEGATIVE mg/dL (<2.0)
[2018-03-20 04:24] LABS: URINE AMPHETAMINES SCREEN NEGATIVE; URINE BARBITURATES SCREEN NEGATIVE; URINE BENZODIAZEPINES SCREEN NEGATIVE; URINE COCAINE SCREEN NEGATIVE; URINE MARIJUANA (THC) SCREEN NEGATIVE; URINE METHADONE SCREEN NEGATIVE; URINE PHENCYCLIDINE SCREEN NEGATIVE
--- NOTE | 2018-03-20 09:41 | ER Document Report ---
Doctor's Note Notes: 03/20/18 09:40 37-year-old female with PMH of anxiety, PTSD, bipolar disorder, schizoaffective disorder who presents with suicidal ideation. Patient has inpatient admission in 2009. She is followed by [facility]. Patient is on Zoloft with a recent increase in her dosage. Patient also has [place] at home and is supposedly in taking more tablets than normal according to the patient's sister. Labs as recorded including a normal liver panel. Vital signs are stable. We are awaiting psychology evaluation. 03/20/18 15:48 Patient is very calm and cooperative. The friend who lives with the patient is currently at bedside. She feels very comfortable with the patient going home. Patient denies any auditory or visual hallucinations. She denies any suicidal ideations. Liver panel and Tylenol level were negative. She is requesting a medication change. She states that she recently was placed on medications at [facility] around 2 months ago and does not believe that they are effective. She is asking for Lamictal 25 mg daily and BuSpar 10 mg twice daily. I believe this is a reasonable option. Unfortunately we have no way up to communicate with [facility] to discuss this with the psychiatrist as they do not accept our phone calls. We will therefore proactively start the patient on these medications and fax over this information to the facility. Strict return precautions have been explained.
[2018-03-20] MEDS ORDERED: LORAZEPAM 1 MG TABLET PO ONE (13:32)
--- NOTE | 2018-03-20 15:20 | PSYCHOLOGICAL NOTE ---
Psych Note - Psych Note Psych Note: Reason for consult: suicidal ideation Consent permissions: Jomar, , 37-year-old female with multiple psychiatric diagnoses including anxiety, PTSD, bipolar disorder, schizoaffective disorder resents with suicidal ideation. Patient states that over the last few weeks she has become more anxious, has begun thinking about hurting herself. Patient states that her plan would be to overdose on medications. She does have prior similar history and attempted previously approximately 10 years ago. Patient was started on Zoloft and has had it increased recently to 150 mg daily. She believes that the medication is causing her to feel this way. She admits to auditory and tactile hallucinations. Patient's sister is at the bedside and states that she has noticed the patient taking her Moville more than usual. Patient's Moville prescription was filled March 14 and had 120 tabs initially today more than half of the bottle is gone. Patient disclosed that she came in because she was having suicidal ideation. Patient denies having a plan and states that her suicidal ideation "comes and goes." She reports that this is been happening several times over the last few months. She continued disclosed that she has been feeling like she has been "spiraling down to a deep depression" which started about 1 week ago reporting mood liability of being angry and depressed and sad. she continued disclosed that she did become agitated when they made her give her phone and stuffed animal to security for a locker. She has an outpatient mental health provider through [facility] and receives prescriptions for Zoloft, of Vylar, and Vistaril. She discloses that she has been inpatient psychiatric treatment the last being 2009; patient cannot remember the location of her inpatient treatment currently. Patient denies working and currently lives with her and sister. Clinician attempted to contact Jomar, patient's ; left message Patient is alert and orientated to person, place, time and circumstance. Mood is dysphoric with flat affect clinician notes patient was awoken for evaluation. Patient endorses passive suicidal ideation that "comes and goes." Patient states increase of depression over the last week which correlates with patient's increase in misuse of her Moville. Delusions are absent behaviors congruent with an intact reality based presentation i.e. organized and linear thought processes. Eye contact is fair. Conversational speech was within normal rate, tone and prosody. Intellectual abilities appear to be within the average range. Attention and concentration is fair. Insight, judgment, impulse control is fair. Clinician spoke with patient's sister who disclosed concern that the patient is misusing her medications and states that the medications will now be locked up. She agrees to be part of the patient's discharge plan to ensure the patient follows up with not only mental health but possible substance abuse treatment. Patient denies misusing her medications stating that she has split her pills up into a different bottle and agrees to show this bottle to her sister upon arrival of home. Patient's sister disclosed to clinician privately that if the medication really is missing she will be contacting the patient's pain management provider to inform them of her concern of possible misuse. She continued disclosed that she has no concerns with the patient returning home; she is at home with patient every day. Patient became tearful and stated that she does not like her medications and requests new medication recommendations. Medication recommendations per [facility]'s contracted psychiatrist Dr. Jeannette LARA are as follows 1. Lamictal 25 mg daily for 1 week then increase to 50 mg daily 2. BuSpar 10 mg twice daily Diagnosis 295.70 (F25.0) Schizoaffective Disorder, Bipolar Type, per history 300.01 (F41.0) Panic Disorder, per history 309.81 (F43.10) Post Traumatic Stress Disorder, per history 301.83 (F60.3) Borderline Personality Disorder, per history Impression/plan: Patient is recommended for rescind of IVC and is considered cleared from acute psychiatric services. Patient no longer meets IVC criteria. Patient discloses increased depression that correlates with her increased misuse of her [place] and discloses passive suicidal ideation; ie no plan, means and intent. Patient has an outpatient provider with [facility]; however has requested medication recommendations. Those medication recommendations have been provided along with mobile crisis contact information. Patient's sister agrees to be part of the patient's discharge plan to ensure the patient does not have access to medications or weapons and follows through with her mental health and possible substance abuse treatment. Dr. Camacho was consulted and the care and management this patient; attending physician is agreement with recommendations and disposition.
[2018-03-20 16:17] VITALS: BP 132/80
== END 2018-03-20 16:18 | disposition home or self-care (01) ==
LOC: ER 00:57
DX: R45.851 Suicidal ideations (principal); F60.3 Borderline personality disorder; F25.0 Schizoaffective disorder, bipolar type; F41.0 Panic disorder [episodic paroxysmal anxiety]; D72.828 Other elevated white blood cell count; F43.10 Post-traumatic stress disorder, unspecified
CPT/HCPCS: 36415; 80053; 80307; 81001; 81025; 85025; 99285

== ENCOUNTER 2018-04-19 13:57 | Emergency (ER) | payer MEDICAID ==
[2018-04-19 14:04] VITALS: BP 140/86
--- NOTE | 2018-04-19 14:36 | RADIOLOGY REPORT (SQ) ---
EXAM DESCRIPTION: FOOT RIGHT COMPLETE COMPLETED DATE/TIME: 04/19/2018 2:25 pm REASON FOR STUDY: right foot injury COMPARISON: 08/01/2017 NUMBER OF VIEWS: Three views. TECHNIQUE: AP, lateral and oblique radiographic images acquired of the right foot. LIMITATIONS: None. FINDINGS: MINERALIZATION: Normal. BONES: No acute fracture or dislocation. No worrisome bone lesions. Postsurgical changes at the dis carlos aspect of the 1st metatarsal. Marked hallux valgus is present. JOINTS: No effusions. SOFT TISSUES: No soft tissue swelling. No foreign body. OTHER: No other significant finding. IMPRESSION: No evidence of acute abnormality. Stable chronic findings. TECHNICAL DOCUMENTATION: JOB ID: [id number] [employer]- All Rights Reserved Reading location - IP/workstation name: [email or web address]
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
[2018-04-19] MEDS ORDERED: ACETAMINOPHEN 325 MG TABLET PO ONE (15:00)
== END 2018-04-19 15:18 | disposition home or self-care (01) ==
LOC: ER 13:57
DX: S99.911A Unspecified injury of right ankle, initial encounter (principal); X58.XXXA Exposure to other specified factors, initial encounter; Y93.55 Activity, bike riding; F17.210 Nicotine dependence, cigarettes, uncomplicated; E11.9 Type 2 diabetes mellitus without complications; Z91.013 Allergy to seafood; I25.2 Old myocardial infarction; Z90.49 Acquired absence of other specified parts of digestive tract
CPT/HCPCS: 99283; 73630; L1902; J3490

== ENCOUNTER 2018-07-22 18:42 | Emergency (ER) | payer MEDICAID ==
[2018-07-22 18:50] VITALS: BP 146/86
[2018-07-22] MEDS ORDERED: FUROSEMIDE 40 MG TABLET PO ONE (19:14)
--- NOTE | 2018-07-22 19:17 | ER Document Report ---
ED Medical Screen (RME) - General Chief Complaint: Leg Swelling Stated Complaint: LEG SWELLING Time Seen by Provider: 07/22/18 19:05 TRAVEL OUTSIDE OF THE [place] IN LAST 30 DAYS: No - HPI Patient complains to provider of: Leg swelling Onset: Other - This is a pleasant 38-year-old woman that presents for evaluation of leg swelling and setting of having started taking lisinopril in the last couple of days. She notes that she is also felt a little bit run down , she did call her primary physician who noted that she should stop taking the medication and come into the office tomorrow. Because of the swelling in her lower extremities they recommended she come to the emergency room. She denies any fevers or chills, shortness of breath, abdominal pain constipation dysuria diarrhea or rashes. She notes that the swelling in her legs is making it difficult to get around. She is also have lab work drawn today but missed her appointment because of missing the bus. - Related Data Allergies/Adverse Reactions: Shellfish * [Shellfish] Allergy (Severe, Verified 07/22/18 19:09) Hives (hospitalized for 2 days) amoxicillin trihydrate [From Augmentin] Allergy (Intermediate, Verified 19:09) Rash Potassium Clavulanate * [From Augmentin] Allergy (Intermediate, Verified 19:09) Rash propoxyphene napsylate [From Darvocet-N 100] Allergy (Intermediate, Verified 07/30 19:09) Rash Sulfa (Sulfonamide Antibiotics) Allergy (Intermediate, Verified 07/22/18 19:09) Generalized rash Past Medical History - General Information source: Patient - Social History Chew tobacco use (# tins/day): No Frequency of alcohol use: None Drug Abuse: None - Past Medical History Cardiac Medical History: Reports: Hx Heart Attack - 2011, Hx Hypercholesterolemia, Hx Hypertension Denies: Hx Coronary Artery Disease Pulmonary Medical History: Reports: Hx Asthma, Hx Sleep Apnea Denies: Hx Bronchitis, Hx COPD, Hx Pneumonia, Hx Tuberculosis Neurological Medical History: Denies: Hx Cerebrovascular Accident, Hx Seizures Endocrine Medical History: Reports: Hx Diabetes Mellitus Type 2 Renal/ Medical History: Denies: Hx Peritoneal Dialysis GI Medical History: Reports: Hx Gastroesophageal Reflux Disease, Hx Ulcer Musculoskeltal Medical History: Reports Hx Arthritis, Reports Hx Musculoskeletal Deformity, Reports Hx Musculoskeletal Trauma Psychiatric Medical History: Reports: Hx Bipolar Disorder, Hx Depression, Hx Post Traumatic Stress Disorder, Hx Schizoaffective Disorder, Hx Schizophrenia Traumatic Medical History: Reports: Hx Fractures - Right foot Infectious Medical History: Past Surgical History: Reports: Hx Adenoidectomy, Hx Appendectomy, Hx Cholecystectomy, Hx Genitourinary Surgery - Bladder stimulator, Hx Gynecologic Surgery - Cervical laser surgery, Hx Orthopedic Surgery - Bunion surgery right foot, Hx Tonsillectomy. Denies: Hx Hysterectomy, Hx Pacemaker - Immunizations Hx Diphtheria, Pertussis, Tetanus Vaccination: No Review of Systems - Review of Systems -: Yes All other systems reviewed and negative Physical Exam - Vital signs Vitals: Temp Pulse Resp BP Pulse Ox 98.9 F 75 18 146/86 H 96 07/22/18 18:49 07/22/18 18:49 07/22/18 18:49 07/22/18 18:49 07/22/18 18:49 - General General appearance: Appears well In distress: None - HEENT Head: Normocephalic Eyes: Normal Conjunctiva: Normal Cornea: Normal Extraocular movements intact: Yes Eyelashes: Normal Pupils: PERRL - Respiratory Respiratory status: No respiratory distress Chest status: Nontender Breath sounds: Normal Chest palpation: Normal - Cardiovascular Rhythm: Regular Heart sounds: Normal auscultation Murmur: No - Abdominal Inspection: Normal Distension: No distension Tenderness: Nontender - Back Back: Normal - Extremities General upper extremity: Normal inspection, Nontender, Normal ROM, Normal strength General lower extremity: Other - +1 pitting edema below the level of the mid harrell - Neurological Neuro grossly intact: Yes Cognition: Normal Orientation: AAOx4 [place] Coma Scale Eye Opening: Spontaneous Johnnie Coma Scale Verbal: Oriented Johnnie Coma Scale Motor: Obeys Commands [place] Coma Scale Total: 15 Speech: Normal Cranial nerves: Normal Cerebellar coordination: Normal Motor strength normal: LUE, RUE, LLE, RLE - Psychological Associated symptoms: Normal affect Course - Re-evaluation Re-evalutation: 07/22/18 21:01 This 38-year-old female presented for lower extremity edema in the setting of recently started a new blood pressure medication. Examination she is well-appearing, has low level edema in the lower extremities. Like this is a result of her new blood pressure medication, will encourage her to stop the use of her blood pressure medicine. We will replace this with hydrochlorothiazide, will initiate her dose in the emergency department. Patient be discharged with return precautions and a brief prescription of a diuretic. She is to follow-up with her primary physician tomorrow. She will have labs drawn this week for further investigation. - Vital Signs Vital signs: Temp Pulse Resp BP Pulse Ox 98.9 F 75 18 146/86 H 96 07/22/18 18:49 07/22/18 18:49 07/22/18 18:49 07/22/18 18:49 07/22/18 18:49 Doctor's Discharge - Discharge Clinical Impression: Edema Qualifiers: Edema type: unspecified Qualified Code(s): R60.9 - Edema, unspecified Condition: Good Disposition: HOME, SELF-CARE Instructions: Edema, Peripheral ([facility]), Hydrochlorothiazide ([facility]) Prescriptions: Furosemide 20 mg PO DAILY #10 tablet Forms: Elevated Blood Pressure Referrals: DAMON SNOWDEN PA-C [Primary Care Provider] - Follow up as needed
== END 2018-07-22 19:24 | disposition home or self-care (01) ==
LOC: ER 18:42
DX: R60.9 Edema, unspecified (principal); M79.89 Other specified soft tissue disorders; E78.00 Pure hypercholesterolemia, unspecified; E11.9 Type 2 diabetes mellitus without complications; I10 Essential (primary) hypertension; Z88.0 Allergy status to penicillin; Z88.2 Allergy status to sulfonamides; Z91.013 Allergy to seafood; I25.2 Old myocardial infarction; Z90.49 Acquired absence of other specified parts of digestive tract
CPT/HCPCS: 99283; J3490

== ENCOUNTER 2018-08-29 13:46 | Emergency (ER) | payer MEDICAID ==
[2018-08-29] MEDS ORDERED: ASPIRIN 81 MG TABLET, CHEWABLE PO ONE (14:18)
[2018-08-29] MEDS ORDERED: MAG HYDROX/AL HYDROX/SIMETH SUSP 30 ML UDCUP PO ONE (14:19)
[2018-08-29] MEDS ORDERED: LIDOCAINE 2% VISCOUS SOLN 20 ML UDCUP PO ONE (14:19)
[2018-08-29] MEDS ORDERED: FAMOTIDINE INJ/PF 20 MG/2 ML SDV IV ONE (14:19)
[2018-08-29] MEDS ORDERED: NORMAL SALINE 1000 ML 1,000 ML IV ONE (14:19)
[2018-08-29] MEDS ORDERED: METOCLOPRAMIDE HCL ORAL SOLN 10 MG/10 ML UDCUP PO ONE (14:19)
[2018-08-29] MEDS ORDERED: ONDANSETRON HCL INJ/PF 4 MG/2 ML SDV IV ONE (14:19)
--- NOTE | 2018-08-29 14:25 | ER Document Report ---
ED General - General Chief Complaint: Chest Pain Stated Complaint: CHEST PAIN Time Seen by Provider: 08/29/18 14:08 Mode of Arrival: Ambulatory Information source: Patient Notes: 38-year-old female presents emergency department with complaints of epigastric pain for the last 2 days. She states that is been constant. She states that the pain is located in the epigastric area and radiates to between the shoulder blades. She denies any alleviating or exacerbating factors. Patient is having associated nausea, vomiting, diarrhea. She states that she was seen by her primary care physician a few days ago and diagnosed with sinusitis. She was started on Levaquin. She states that a week prior to that she was on amoxicillin for an upper respiratory infection. Patient states that she went to see her primary care physician again today and was given Zofran and Toradol in the office. She states that this did not help with her symptoms. Patient is coming into the emergency department for an evaluation. Patient states that she does have a history of hypertension, hyperlipidemia, diabetes, coronary artery disease. She does not have any stents placed. She states that she has had a cholecystectomy and appendectomy. She has been consuming fluids today but not much. TRAVEL OUTSIDE OF THE [place] IN LAST 30 DAYS: No - HPI Onset: Other - 2 days Quality of pain: Achy, Cramping Severity: Mild Associated symptoms: Diarrhea, Nausea, Vomiting Exacerbated by: Denies Relieved by: Denies Similar symptoms previously: Yes Recently seen / treated by doctor: Yes - Related Data Allergies/Adverse Reactions: Shellfish * [Shellfish] Allergy (Severe, Verified 07/22/18 19:09) Hives (hospitalized for 2 days) amoxicillin trihydrate [From Augmentin] Allergy (Intermediate, Verified 19:09) Rash Potassium Clavulanate * [From Augmentin] Allergy (Intermediate, Verified 19:09) Rash propoxyphene napsylate [From Darvocet-N 100] Allergy (Intermediate, Verified 07/30 19:09) Rash Sulfa (Sulfonamide Antibiotics) Allergy (Intermediate, Verified 07/22/18 19:09) Generalized rash Past Medical History - General Information source: Patient - Social History Smoking Status: Former Smoker Family History: Arthritis, CAD, COPD, DM, Hyperlipidemia, Hypertension, Thyroid Disfunction. denies: CVA, Malignancy Patient has suicidal ideation: No Patient has homicidal ideation: No - Past Medical History Cardiac Medical History: Reports: Hx Heart Attack - 2011, Hx Hypercholesterolemia, Hx Hypertension Denies: Hx Coronary Artery Disease Pulmonary Medical History: Reports: Hx Asthma, Hx Sleep Apnea Denies: Hx Bronchitis, Hx COPD, Hx Pneumonia, Hx Tuberculosis Neurological Medical History: Denies: Hx Cerebrovascular Accident, Hx Seizures Endocrine Medical History: Reports: Hx Diabetes Mellitus Type 2 Renal/ Medical History: Denies: Hx Peritoneal Dialysis GI Medical History: Reports: Hx Gastroesophageal Reflux Disease, Hx Ulcer Musculoskeletal Medical History: Reports Hx Arthritis, Reports Hx Musculoskeletal Deformity, Reports Hx Musculoskeletal Trauma Psychiatric Medical History: Reports: Hx Bipolar Disorder, Hx Depression, Hx Post Traumatic Stress Disorder, Hx Schizoaffective Disorder, Hx Schizophrenia Traumatic Medical History: Reports: Hx Fractures - Right foot Infectious Medical History: Past Surgical History: Reports: Hx Adenoidectomy, Hx Appendectomy, Hx Cholecystectomy, Hx Genitourinary Surgery - Bladder stimulator, Hx Gynecologic Surgery - Cervical laser surgery, Hx Orthopedic Surgery - Bunion surgery right foot, Hx Tonsillectomy. Denies: Hx Hysterectomy, Hx Pacemaker - Immunizations Hx Diphtheria, Pertussis, Tetanus Vaccination: No Hx Pneumococcal Vaccination: 10/13/97 Review of Systems - Review of Systems Constitutional: No symptoms reported EENT: No symptoms reported Cardiovascular: No symptoms reported Respiratory: No symptoms reported Gastrointestinal: Abdominal pain, Diarrhea, Nausea, Vomiting Genitourinary: No symptoms reported Female Genitourinary: No symptoms reported Musculoskeletal: No symptoms reported Skin: No symptoms reported Hematologic/Lymphatic: No symptoms reported Neurological/Psychological: No symptoms reported -: Yes All other systems reviewed and negative Physical Exam - Vital signs Vitals: Resp BP Pulse Ox 20 123/79 93 08/29/18 20:00 08/29/18 20:00 08/29/18 20:00 - Notes Notes: PHYSICAL EXAMINATION: GENERAL: Well-appearing, well-nourished and in no acute distress. HEAD: Atraumatic, normocephalic. EYES: Pupils equal round and reactive to light, extraocular movements intact, conjunctiva are normal. ENT: Nares patent, oropharynx clear without exudates. Moist mucous membranes. NECK: Normal range of motion, supple without lymphadenopathy LUNGS: Breath sounds clear to auscultation bilaterally and equal. No wheezes rales or rhonchi. HEART: Regular rate and rhythm without murmurs ABDOMEN: Soft, epigastric tenderness to palpation. No rebound or guarding. Normal active bowel sounds. Female : deferred Musculoskeletal: Normal range of motion, no pitting or edema. No cyanosis. NEUROLOGICAL: Cranial nerves grossly intact. Normal speech, normal gait. Normal sensory, motor exams PSYCH: Normal mood, normal affect. SKIN: Warm, Dry, normal turgor, no rashes or lesions noted. Course - Re-evaluation Re-evalutation: 08/29/18 16:07 EKG: Ventricular rate 85, UT interval 140, QRS duration 80, QTc 390, normal sinus rhythm. No ST segment elevation. 08/29/18 20:58 Patient having pain in the epigastric area. Physical exam is remarkable for reproducible pain. Patient given a GI cocktail, Pepcid. On reevaluation, patient states that this helped with her pain. Labs and imaging obtained. No acute process was identified. 2 sets of cardiac enzymes were done and both were normal. Patient then began complaining of diffuse abdominal pain. A CT of the abdomen pelvis was done. A right ovarian cyst was appreciated. I will discharge the patient home. Patient instructed to take [id number] medication as needed for symptom relief, to follow-up with her primary care physician this week, and to return for worsening symptoms. 08/29/18 22:46 - Vital Signs Vital signs: Temp Pulse Resp BP Pulse Ox 9 L 126/75 H 95 08/29/18 21:00 08/29/18 21:00 08/29/18 21:00 - Laboratory Result Diagrams: 08/29/18 14:55 08/29/18 14:55 Laboratory results interpreted by me: 08/29/18 08/29/18 14:55 14:55 WBC 15.0 H Absolute Neutrophils 10.6 H AST 13 L Total Protein 5.8 L Albumin 3.3 L Lipase 19.9 L Discharge - Discharge Clinical Impression: Epigastric abdominal pain Condition: Good Disposition: HOME, SELF-CARE Instructions: Abdominal Pain ([facility]) Prescriptions: Ondansetron [Zofran Odt 4 mg Tablet] 1 tab PO Q4H PRN #15 tab.rapdis PRN Reason: For Nausea/Vomiting Referrals: DAMON SNOWDEN PA-C [Primary Care Provider] - Follow up as needed
[2018-08-29 15:21] LABS: ABSOLUTE BASOPHILS # (AUTO) 0.1 10^3/uL (0.0-0.2); ABSOLUTE EOSINOPHILS # (AUTO) 0.1 10^3/uL (0.0-0.6); ABSOLUTE LYMPHOCYTES (AUTO) 3.3 10^3/uL (0.5-4.7); ABSOLUTE NEUT (AUTO) 10.6 10^3/uL (1.7-8.2); BASOPHILS % (AUTO) 0.3 % (0-2); EOSINOPHILS % (AUTO) 0.5 % (0-6); HEMATOCRIT 37.7 % (36.0-47.0); HEMOGLOBIN 13.1 g/dL (12.0-15.5); MEAN CORPUSCULAR HEMOGLOBIN 32.2 pg (27.0-33.4); MEAN CORPUSCULAR HGB CONC 34.6 g/dL (32.0-36.0); MEAN CORPUSCULAR VOLUME 93 fl (80-97); MONOCYTES % (AUTO) 6.4 % (3-13); PLATELET COUNT 254 10^3/uL (150-450); RED BLOOD COUNT 4.05 10^6/uL (3.72-5.28); RED CELL DISTRIBUTION WIDTH 12.9 % (11.5-14.0); SEGMENTED NEUTROPHILS % (AUTO) 70.8 % (42-78); TOTAL CELLS COUNTED % (AUTO) 100 %
[2018-08-29 15:43] LABS: ALANINE AMINOTRANSFERASE 22 U/L (9-52); ALBUMIN 3.3 g/dL (3.5-5.0); ALKALINE PHOSPHATASE 68 U/L (38-126); ANION GAP 9 (5-19); ASPARTATE AMINO TRANSFERASE 13 U/L (14-36); BILIRUBIN,DIRECT 0.1 mg/dL (0.0-0.4); BILIRUBIN,TOTAL 0.3 mg/dL (0.2-1.3); BLOOD UREA NITROGEN 10 mg/dL (7-20); CALCIUM 9.2 mg/dL (8.4-10.2); CARBON DIOXIDE 26 mmol/L (22-30); CHLORIDE 105 mmol/L (98-107); GLUCOSE 87 mg/dL (75-110); LIPASE 19.9 U/L (23-300); POTASSIUM 4.3 mmol/L (3.6-5.0); SODIUM 139.6 mmol/L (137-145); TOTAL PROTEIN 5.8 g/dL (6.3-8.2)
--- NOTE | 2018-08-29 16:06 | RADIOLOGY REPORT (SQ) ---
EXAM DESCRIPTION: ACUTE ABDOMEN SERIES COMPLETED DATE/TIME: 08/29/2018 3:53 pm REASON FOR STUDY: epigastric abdominal pain COMPARISON: None. NUMBER OF VIEWS: Three views. TECHNIQUE: Frontal chest, supine abdomen and upright/decubitus abdomen radiographic images acquired. LIMITATIONS: None. FINDINGS: CHEST: Lungs clear of infiltrates. FREE AIR: None. No abnormal gas collections. BOWEL GAS PATTERN: Nonobstructive pattern. No dilated loops or air fluid levels. CALCIFICATIONS: No suspicious calcifications. HARDWARE: Bladder stimulator. SOFT TISSUES: No gross mass or suggestion of organomegaly. BONES: No acute fracture. No worrisome bone lesions. OTHER: No other significant finding. IMPRESSION: NO RADIOGRAPHIC EVIDENCE FOR ACUTE ABDOMINAL DISEASE. TECHNICAL DOCUMENTATION: JOB ID: [id number] [employer]- All Rights Reserved Reading location - IP/workstation name: [email or web address]
[2018-08-29 17:14] LABS: APPEARANCE,URINE CLOUDY; BILIRUBIN,URINE NEGATIVE (NEGATIVE); COLOR,URINE YELLOW; GLUCOSE, URINE NEGATIVE (NEGATIVE); KETONES,URINE NEGATIVE (NEGATIVE); LEUKOCYTE ESTERASE,URINE NEGATIVE (NEGATIVE); NITRITE,URINE NEGATIVE (NEGATIVE); PROTEIN,URINE NEGATIVE (NEGATIVE); URINE SPECIFIC GRAVITY 1.012; UROBILINOGEN,URINE NEGATIVE mg/dL (<2.0)
[2018-08-29] MEDS ORDERED: MORPHINE SULFATE 10 MG/ML INJ IV ONE (19:53)
--- NOTE | 2018-08-29 20:35 | RADIOLOGY REPORT (SQ) ---
EXAM DESCRIPTION: CT ABD/PELVIS WITH IV ONLY COMPLETED DATE/TIME: 08/29/2018 8:21 pm REASON FOR STUDY: diffuse abdominal pain COMPARISON: None. TECHNIQUE: CT scan of the abdomen and pelvis performed using helical scanning technique with dynamic intravenous contrast injection. No oral contrast. Images reviewed with lung, soft tissue, and bone windows. Reconstructed coronal and sagittal MPR images reviewed. Delayed images for evaluation of the urinary system also acquired. All images stored on PACS. All CT scanners at this facility use dose modulation, iterative reconstruction, and/or weight based d osing when appropriate to reduce radiation dose to as low as reasonably achievable (ALARA). [facility]: Dose Right [facility]: CareDose [facility]: Dose Right [facility]: Teradose 4D [facility]: [employer] CONTRAST TYPE AND DOSE: contrast/concentration: Isovue 350.00 mg/ml; Total Contrast Delivered: 91.0 ml; Total Saline Delivered: 45.0 ml RENAL FUNCTION: GFR > 60. RADIATION DOSE: CT Rad equipment meets quality standard of care and radiation dose reduction techniq ues were employed. CTDIvol: 12.9 - 17.1 mGy. DLP: 1525 mGy-cm.. LIMITATIONS: None. FINDINGS: LOWER CHEST: No significant findings. No nodules or infiltrates. LIVER: Normal size. No masses. No dilated ducts. SPLEEN: Normal size. No focal lesions. PANCREAS: No masses. No significant calcifications. No adjacent inflammation or peripancreatic fluid collections. Pancreatic duct not dilated. GALLBLADDER: Surgically absent. ADRENAL GLANDS: No significant masses or asymmetry. RIGHT KIDNEY AND URETER: No solid masses. No significant calcifications. No hydronephrosis or hyd roureter. LEFT KIDNEY AND URETER: No solid masses. No significant calcifications. No hydronephrosis or hydr oureter. AORTA AND VESSELS: No aneurysm. No dissection. Renal arteries, SMA, celiac without stenosis. RETROPERITONEUM: No retroperitoneal adenopathy, hemorrhage or masses. BOWEL AND PERITONEAL CAVITY: No masses or inflammatory changes. No free fluid or peritoneal masses. APPENDIX: Surgically absent. PELVIS: 3 cm right ovarian cysts. Bladder unremarkable. ABDOMINAL WALL: No masses. No hernias. BONES: No significant or acute findings. OTHER: No other significant finding. IMPRESSION: 3 cm right ovarian cysts. No other significant finding. COMMENT: Followup of asymptomatic adnexal cysts found on CT or MRI in reproductive age patients *Benign cyst ?5 cm: No followup needed *Note: If cyst is clinically symptomatic or otherwise concerning, other followup may be necessary. Waldemar sed on Managing Incidental Findings on Abdominal and Pelvic CT and MRI, Part 1: White Paper of the AC R Incidental Findings Committee II on Adnexal Findings J Am Isabel Radiol 2013;10:675-681. TECHNICAL DOCUMENTATION: JOB ID: [id number] Quality ID # [id number]: Final reports with documentation of one or more dose reduction techniques (e.g., Au tomated exposure control, adjustment of the mA and/or kV according to patient size, use of iterative reconstruction technique) 2010 [employer]- All Rights Reserved Reading location - IP/workstation name: [email or web address]
[2018-08-29 21:15] VITALS: BP 126/75
--- NOTE | 2018-08-30 10:54 | EKG REPORT ---
SEVERITY:- NORMAL ECG - SINUS RHYTHM : Confirmed by: Zak Olguin 30-Aug-2018 10:54:07
== END 2018-08-29 21:27 | disposition home or self-care (01) ==
LOC: ER 13:46
DX: R10.13 Epigastric pain (principal); R07.9 Chest pain, unspecified; R19.7 Diarrhea, unspecified; R11.2 Nausea with vomiting, unspecified; E78.00 Pure hypercholesterolemia, unspecified; I10 Essential (primary) hypertension; E11.9 Type 2 diabetes mellitus without complications; Z91.013 Allergy to seafood; Z88.0 Allergy status to penicillin; Z88.2 Allergy status to sulfonamides; I25.2 Old myocardial infarction; Z90.49 Acquired absence of other specified parts of digestive tract
CPT/HCPCS: 93005; 99284; 96361; 96374; 96375; 36415; 83690; 85025; 80053; 81001; 84484; 74022; 74177; 93010; J3490 ×3; J2270; J2405; J7030; S0028

== ENCOUNTER 2018-10-10 10:39 | Emergency (ER) | payer MEDICAID ==
[2018-10-10 10:59] VITALS: BP 124/85
--- NOTE | 2018-10-10 11:27 | RADIOLOGY REPORT (SQ) ---
EXAM DESCRIPTION: SHOULDER LEFT 2 OR MORE VIEWS COMPLETED DATE/TIME: 10/10/2018 11:12 am REASON FOR STUDY: hit left shoulder into wall, painful to move COMPARISON: None. NUMBER OF VIEWS: Three views. TECHNIQUE: Internal rotation, external rotation, and Y view images acquired of the left shoulder. LIMITATIONS: None. FINDINGS: MINERALIZATION: Normal. BONES: No acute fracture or dislocation. No worrisome bone lesions. JOINTS: No dislocation. VISUALIZED LUNGS AND RIBS: No pneumothorax. No rib fracture. SOFT TISSUES: No radiopaque foreign body. OTHER: No other significant finding. IMPRESSION: NEGATIVE STUDY OF THE LEFT SHOULDER. NO RADIOGRAPHIC EVIDENCE OF ACUTE INJURY. TECHNICAL DOCUMENTATION: JOB ID: [id number] [employer]- All Rights Reserved Reading location - IP/workstation name: [email or web address]
[2018-10-10] MEDS ORDERED: IBUPROFEN 800 MG TABLET PO ONE (11:42)
[2018-10-10] MEDS ORDERED: METHOCARBAMOL 750 MG TABLET PO ONE (11:42)
--- NOTE | 2018-10-10 11:49 | ER Document Report ---
ED Extremity Problem, Upper - General Chief Complaint: Shoulder Injury Stated Complaint: SHOULDER PAIN Time Seen by Provider: 10/10/18 10:56 Mode of Arrival: Ambulatory Information source: Patient Notes: 38-year-old female presented to ED for complaint of pain in her left shoulder she states that on October 03 she walked into a wall when she lost her balance. She states that on October 05 she was reaching up into the cabinet and had severe pain and it is progressively gotten worse since then. She states she is unable to lift her arm by herself. She states she has dislocated her shoulder in the past. Patient is alert oriented respirations regular and unlabored she was able to move her shoulder as long as I held the weight of the arm and full range of motion but she states it was painful. The x-ray which was taken before I examined her was negative for any bony abnormalities. TRAVEL OUTSIDE OF THE [place] IN LAST 30 DAYS: No - HPI Patient complains to provider of: Left, Shoulder Onset: Other - October 03 and then again on October 05 Recent injury: Possibly Where: Home, Indoors Quality of pain: Sharp, Throbbing Severity of pain: Moderate Pain Level: 4 Associated symptoms: None Exacerbated by: Movement, Exertion Relieved by: Rest, Positioning Similar symptoms previously: Yes Recently seen / treated by doctor: No - Related Data Allergies/Adverse Reactions: Shellfish * [Shellfish] Allergy (Severe, Verified 10/10/18 10:50) Hives (hospitalized for 2 days) amoxicillin trihydrate [From Augmentin] Allergy (Intermediate, Verified 10/10/18 10:50) Rash Potassium Clavulanate * [From Augmentin] Allergy (Intermediate, Verified 10/10/18 10:50) Rash propoxyphene napsylate [From Darvocet-N 100] Allergy (Intermediate, Verified 10/10/18 10:50) Rash Sulfa (Sulfonamide Antibiotics) Allergy (Intermediate, Verified 10/10/18 10:50) Generalized rash Past Medical History - General Information source: Patient - Social History Smoking Status: Current Every Day Smoker Cigarette use (# per day): Yes - 1/2 pack/day Chew tobacco use (# tins/day): No Smoking Education Provided: Yes - 4 minutes Frequency of alcohol use: None Drug Abuse: None Lives with: Family Family History: Arthritis, CAD, COPD, DM, Hyperlipidemia, Hypertension, Thyroid Disfunction. denies: CVA, Malignancy - Past Medical History Cardiac Medical History: Reports: Hx Heart Attack - 2011, Hx Hypercholesterolemia, Hx Hypertension Pulmonary Medical History: Reports: Hx Asthma, Hx Sleep Apnea EENT Medical History: Reports: None Neurological Medical History: Reports: None Endocrine Medical History: Reports: Hx Diabetes Mellitus Type 2 Renal/ Medical History: Reports: None Malignancy Medical History: Reports: None GI Medical History: Reports: Hx Gastroesophageal Reflux Disease, Hx Ulcer Musculoskeletal Medical History: Reports Hx Arthritis, Reports Hx Musculoskeletal Deformity, Reports Hx Musculoskeletal Trauma Skin Medical History: Reports None Psychiatric Medical History: Reports: Hx Bipolar Disorder, Hx Depression, Hx Post Traumatic Stress Disorder, Hx Schizoaffective Disorder, Hx Schizophrenia Traumatic Medical History: Reports: Hx Fractures - Right foot Infectious Medical History: Reports: None Past Surgical History: Reports: Hx Adenoidectomy, Hx Appendectomy, Hx Cholecystectomy, Hx Genitourinary Surgery - Bladder stimulator, Hx Gynecologic Surgery - Cervical laser surgery, Hx Orthopedic Surgery - Bunion surgery right foot carpal tunnel right ulnar release both elbows, Hx Tonsillectomy - Immunizations Hx Diphtheria, Pertussis, Tetanus Vaccination: No Hx Pneumococcal Vaccination: 10/13/97 Review of Systems - Review of Systems Constitutional: No symptoms reported EENT: No symptoms reported Cardiovascular: No symptoms reported Respiratory: No symptoms reported Gastrointestinal: No symptoms reported Genitourinary: No symptoms reported Female Genitourinary: No symptoms reported Musculoskeletal: Joint pain - Left shoulder pain. denies: Joint swelling, Muscle pain, Muscle stiffness Skin: No symptoms reported Hematologic/Lymphatic: No symptoms reported Neurological/Psychological: No symptoms reported -: Yes All other systems reviewed and negative Physical Exam - Vital signs Vitals: Temp Pulse Resp BP Pulse Ox 98.6 F 96 20 124/85 96 10/10/18 10:54 10/10/18 10:54 10/10/18 10:54 10/10/18 10:54 10/10/18 10:54 Interpretation: Normal - General General appearance: Appears well, Alert - HEENT Head: Normocephalic, Atraumatic Eyes: Normal Pupils: PERRL - Respiratory Respiratory status: No respiratory distress Chest status: Nontender Breath sounds: Normal Chest palpation: Normal - Cardiovascular Rhythm: Regular Heart sounds: Normal auscultation Murmur: No - Abdominal Inspection: Normal Distension: No distension Bowel sounds: Normal Tenderness: Nontender Organomegaly: No organomegaly - Back Back: Normal, Nontender - Extremities General upper extremity: Normal inspection, Normal color, Normal temperature General lower extremity: Normal inspection, Nontender, Normal color, Normal ROM, Normal temperature, Normal weight bearing. No: Henrique's sign Shoulder: Tender. No: Limited ROM - Patient has full range of motion is long as I hold the weight off of her arm. She states she injured it on the and 05 October. She states the pain is too bad to move it on her own Arm: Tender - Neurological Neuro grossly intact: Yes Cognition: Normal Orientation: AAOx4 [place] Coma Scale Eye Opening: Spontaneous Johnnie Coma Scale Verbal: Oriented Johnnie Coma Scale Motor: Obeys Commands [place] Coma Scale Total: 15 Speech: Normal Motor strength normal: LUE, RUE, LLE, RLE Sensory: Normal - Psychological Associated symptoms: Normal affect, Normal mood - Skin Skin Temperature: Warm Skin Moisture: Dry Skin Color: Normal Course - Re-evaluation Re-evalutation: 10/10/18 11:53 Patient is able to move her shoulder and full range of motion as long as I held the weight. She states she cannot move it on her own due to the pain. The x- rays were negative and they were discussed with patient and a written report given to patient to follow-up with her primary doctor. She states she cannot follow-up with orthopedic center she follows up with her primary care so she will call them today to get a referral to orthopedics. Patient states she has Robaxin and ibuprofen at home but would like a dose while she is in the emergency room and she was provided these. Patient was provided with a sling and instructed to only use this when she is up walking around that she needs to move her shoulder so that it does not get stiff. Patient was given instructions on shoulder exercises ice packs and warm packs. Patient verbalized understanding and agreement with treatment plan and she was discharged home. - Vital Signs Vital signs: Temp Pulse Resp BP Pulse Ox 98.6 F 96 20 124/85 96 10/10/18 10:54 10/10/18 10:54 10/10/18 10:54 10/10/18 10:54 10/10/18 10:54 - Diagnostic Test Radiology reviewed: Image reviewed, Reports reviewed Discharge - Discharge Clinical Impression: Injury of shoulder, left Qualifiers: Encounter type: initial encounter Qualified Code(s): S49.92XA - Unspecified injury of left shoulder and upper arm, initial encounter Condition: Stable Disposition: HOME, SELF-CARE Additional Instructions: Shoulder Injury You have injured your shoulder. This usually results from stretching or tearing of the tendons during trauma. Time and protection are required in order to heal properly. Many injuries are quite disabling, and should be taken seriously. Initial treatment includes cold packs and a sling to rest the shoulder. The physician has assessed the seriousness of your injury, and has outlined a treatment plan. Understand that this treatment may change, depending on how you progress. If a re-examination was recommended, it is important that you follow up as instructed. Some shoulder injuries (such as partial tear of the rotator cuff) are only suspected after you've failed to improve. Call us if there's severe pain, numbness, or loss of function. Exercise Program for the Shoulder Since the shoulder moves in so many directions, the joint attachment is weak. Muscles provide most of the stability to the shoulder. You must exercise your shoulder to prevent painful instability or stiffening. PASSIVE - These may be begun within a few days of the injury. While standing, lean forward, allowing the arm to hang down towards the floor. Move the arm in small circles while slowly twisting your chest towards and away from the hanging arm. Do this for one minute. ACTIVE - These may be performed when the doctor gives permission. Begin with the arms at the sides. Raise the arms forward (shoulder's width apart) until they reach shoulder level. Then slowly swing both arms back until they are aiming straight out away from each other. Then bring them forward again, and finally, lower them to your sides. Repeat 20 to 30 times. As you improve, put weights in your hands for the exercise. Start with one pound, and work up to 10 pounds. Never use more than is comfortable. Athletes may work up to 30 pounds. Anti-Inflammatory Medication You have a prescription for an antiinflammatory agent. Take your prescription as it was written. This is an excellent, safe drug for pain control. In addition, it has potent antiinflammatory effects which are beneficial, especially in the treatment of injuries, arthritis, or tendonitis. It's best to take this medicine with food. Persons with ulcer disease or allergy to aspirin should notify their physician of this before taking this drug. Take the medication exactly as prescribed. Don't take additional doses unless instructed to do so by your doctor. If you develop wheezing, shortness of breath, hives, faintness, stomach pain, vomiting, or dark black stools, return for re-evaluation at once. Muscle Relaxers Muscle relaxing medications are usually prescribed for acute muscle spasm or injury to the neck and back. They are often combined with antiinflammatory pain medication for increased relief. You may stop the muscle relaxer when the pain and stiffness have improved. Start the medication again if spasms recur. Muscle relaxers may cause drowsiness, especially with the first dose. Do not operate machinery or drive while under the effects of the medication. Most muscle relaxers last up to 24 hours. Do not combine the medication with alcohol. Ice Packs Apply ice packs frequently against the painful area. Many different schedules are recommended, such as "20 minutes on, 20 minutes off" or "one hour ice, two hours rest." If you need to work, you may need to go longer between ice treatments. You should plan to have the area ice packed AT LEAST one fourth of the time. The ice should be applied over the wrap, tape, or splint, or over a layer of cloth -- not directly against the skin. Some ice bags have a built-in cloth and can be put directly on the skin. Warm Packs After approximately two days, apply gentle heat (such as a heating pad or hot water bottle) for about 20 to 30 minutes about every two hours -- at least four times daily. Warmth and elevation will help you make a more rapid recovery, and will ease the pain considerably. Do not use HOT heat, and never apply heat for longer than 30 minutes. The continuous heat can invisibly damage skin and muscles -- even when no burn is seen on the surface. Damaged muscles can make you MORE sore. FOLLOW-UP CARE: If you have been referred to a physician for follow-up care, call the physicians office for an appointment as you were instructed or within the next two days. If you experience worsening or a significant change in your symptoms, notify the physician immediately or return to the Emergency Department at any time for re-evaluation. Forms: Smoking Cessation Education Referrals: MARGARET ALDRICH PA-C [Primary Care Provider] - Follow up as needed
== END 2018-10-10 11:55 | disposition home or self-care (01) ==
LOC: ER 10:39
DX: S49.92XA Unspecified injury of left shoulder and upper arm, initial encounter (principal); W22.01XA Walked into wall, initial encounter; Y92.009 Unspecified place in unspecified non-institutional (private) residence as the place of occurrence of the external cause; F17.210 Nicotine dependence, cigarettes, uncomplicated; I25.2 Old myocardial infarction; I10 Essential (primary) hypertension; J45.909 Unspecified asthma, uncomplicated; E11.9 Type 2 diabetes mellitus without complications; Z71.6 Tobacco abuse counseling; Z88.1 Allergy status to other antibiotic agents; Z88.2 Allergy status to sulfonamides
CPT/HCPCS: 99406; 99283; 73030; J3490 ×2

== ENCOUNTER → 2018-10-14 | Outpatient (CLI) | payer MEDICAID ==
--- NOTE | 2018-10-14 11:15 | WOMENS IMAGING REPORT ---
EXAM DESCRIPTION: BILAT DIAGNOSTIC MAMMO W/CAD; U/S BREAST UNILATERAL, COMPL COMPLETED DATE/TIME: 10/14/2018 10:33 am; 10/14/2018 11:07 am REASON FOR STUDY: N63.14 UNSPECIFIED LUMP IN THE RIGHT BREAST, LOWER INNER QUADRANT; RT BREAST LUMP N63.14 N63.14 UNSPECIFIED LUMP IN THE RIGHT BREAST, LOWER INNER KIKO COMPARISON: None. TECHNIQUE: Standard craniocaudal and mediolateral oblique views of each breast recorded using digita l acquisition. True lateral view right breast. LIMITATIONS: None. FINDINGS: RIGHT BREAST MASSES: No suspicious masses. CALCIFICATIONS: No new or suspicious calcifications. ARCHITECTURAL DISTORTION: None. DEVELOPING DENSITY: None. ASYMMETRY: None noted. OTHER: No other significant findings. LEFT BREAST MASSES: No suspicious masses. CALCIFICATIONS: No new or suspicious calcifications. ARCHITECTURAL DISTORTION: None. DEVELOPING DENSITY: None. ASYMMETRY: None noted. OTHER: No other significant finding. Read with the assistance of CAD: .[facility] - R2 Cenova Version 1.3 .[facility] Imaging - R2 Cenova Version 1.3 .[facility] - R2 Cenova Version 2.4 .[facility] [place] [place] - R2 Cenova Version 2.4 .[facility] - R2 Legal Activity Adjudicator Version 9.2 Ultrasound of the right breast was normal. IMPRESSION: No evidence of malignancy. BREAST DENSITY: b. There are scattered areas of fibroglandular density. BIRAD: 1 Negative. RECOMMENDATION: RECOMMENDED FOLLOW UP: Birads 1 or 2: The patient should resume routine screening . SPECIFIC INTERVENTION/IMAGING/CONSULTATION RECOMMENDED:No additional intervention/ imaging/consultati on needed at this time. COMMUNICATION:The imaging findings were not discussed with the patient. Her referring provider has be en notified of the findings. COMMENT: The patient has been notified of the results by letter per SA requirements. Additional no tification policies are in place for contacting patient with suspicious or incomplete findings. Quality ID #[id number]: The [employer] recommends an annual screening mammogram for women aged 40 years or over. This facility utilizes a reminder system to ensure that all patients receive reminder letters, and/or direct phone calls for appointments. This includes reminders for routine scr eening mammograms, diagnostic mammograms, or other Breast Imaging Interventions when appropriate. Th is patient will be placed in the appropriate reminder system. The [employer] (ACR) has developed recommendations for screening MRI of the breast s in certain patient populations, to be used in conjunction with mammography. Breast MRI surveillanc e may be appropriate for women with more than 20% lifetime risk of developing breast cancer as deter mined by genetic testing, significant family history of the disease, or history of mantle radiation f or Hodgkins Disease. ACR Practice Guidelines 2008. TECHNICAL DOCUMENTATION: FINDING NUMBER: (1) ASSESSMENT: (1) JOB ID: [id number] [employer]- All Rights Reserved Reading location - IP/workstation name: [email or web address]-[email or web address]
--- NOTE | 2018-10-14 11:15 | WOMENS IMAGING REPORT ---
EXAM DESCRIPTION: BILAT DIAGNOSTIC MAMMO W/CAD; U/S BREAST UNILATERAL, COMPL COMPLETED DATE/TIME: 10/14/2018 10:33 am; 10/14/2018 11:07 am REASON FOR STUDY: N63.14 UNSPECIFIED LUMP IN THE RIGHT BREAST, LOWER INNER QUADRANT; RT BREAST LUMP N63.14 N63.14 UNSPECIFIED LUMP IN THE RIGHT BREAST, LOWER INNER KIKO COMPARISON: None. TECHNIQUE: Standard craniocaudal and mediolateral oblique views of each breast recorded using digita l acquisition. True lateral view right breast. LIMITATIONS: None. FINDINGS: RIGHT BREAST MASSES: No suspicious masses. CALCIFICATIONS: No new or suspicious calcifications. ARCHITECTURAL DISTORTION: None. DEVELOPING DENSITY: None. ASYMMETRY: None noted. OTHER: No other significant findings. LEFT BREAST MASSES: No suspicious masses. CALCIFICATIONS: No new or suspicious calcifications. ARCHITECTURAL DISTORTION: None. DEVELOPING DENSITY: None. ASYMMETRY: None noted. OTHER: No other significant finding. Read with the assistance of CAD: .[facility] - R2 Cenova Version 1.3 .[facility] - R2 Cenova Version 1.3 .[facility] Imaging - R2 Cenova Version 2.4 .[facility] - R2 Cenova Version 2.4 .[facility] - R2 Director Internal Audit Version 9.2 Ultrasound of the right breast was normal. IMPRESSION: No evidence of malignancy. BREAST DENSITY: b. There are scattered areas of fibroglandular density. BIRAD: 1 Negative. RECOMMENDATION: RECOMMENDED FOLLOW UP: Birads 1 or 2: The patient should resume routine screening . SPECIFIC INTERVENTION/IMAGING/CONSULTATION RECOMMENDED:No additional intervention/ imaging/consultati on needed at this time. COMMUNICATION:The imaging findings were not discussed with the patient. Her referring provider has be en notified of the findings. COMMENT: The patient has been notified of the results by letter per SA requirements. Additional no tification policies are in place for contacting patient with suspicious or incomplete findings. Quality ID #[id number]: The [employer] recommends an annual screening mammogram for women aged 40 years or over. This facility utilizes a reminder system to ensure that all patients receive reminder letters, and/or direct phone calls for appointments. This includes reminders for routine scr eening mammograms, diagnostic mammograms, or other Breast Imaging Interventions when appropriate. Th is patient will be placed in the appropriate reminder system. The [employer] (ACR) has developed recommendations for screening MRI of the breast s in certain patient populations, to be used in conjunction with mammography. Breast MRI surveillanc e may be appropriate for women with more than 20% lifetime risk of developing breast cancer as deter mined by genetic testing, significant family history of the disease, or history of mantle radiation f or Hodgkins Disease. ACR Practice Guidelines 2008. TECHNICAL DOCUMENTATION: FINDING NUMBER: (1) ASSESSMENT: (1) JOB ID: [id number] [employer]- All Rights Reserved Reading location - IP/workstation name: [facility]-[email or web address]
== END ==
LOC: WI 09:53
PROVIDERS: ATTEND Physician Assistant
DX: N63.14 Unspecified lump in the right breast, lower inner quadrant (principal)
CPT/HCPCS: 76641; 77066

== ENCOUNTER 2018-12-08 19:19 | Emergency (ER) | payer MEDICAID ==
[2018-12-08 19:35] VITALS: BP 127/81
[2018-12-08] MEDS ORDERED: ASPIRIN 81 MG TABLET, CHEWABLE PO ONE (19:53)
--- NOTE | 2018-12-08 19:54 | ER Document Report ---
ED Medical Screen (RME) - General Chief Complaint: Chest Pain Stated Complaint: CHEST PAIN Time Seen by Provider: 12/08/18 19:48 Primary Care Provider: MARGARET ALDRICH PA-C [Primary Care Provider] - Follow up as needed Notes: 38 years old female with a history of possible coronary artery disease, presents today with chest pain radiating to the left since this morning. Denies any difficulty in breathing. Denies any fever chills or other constitutional symptoms. Examination is benign TRAVEL OUTSIDE OF THE [place] IN LAST 30 DAYS: No - Related Data Allergies/Adverse Reactions: Shellfish * [Shellfish] Allergy (Severe, Verified 10/10/18 10:50) Hives (hospitalized for 2 days) amoxicillin trihydrate [From Augmentin] Allergy (Intermediate, Verified 10/10/18 10:50) Rash Potassium Clavulanate * [From Augmentin] Allergy (Intermediate, Verified 10/10/18 10:50) Rash propoxyphene napsylate [From Darvocet-N 100] Allergy (Intermediate, Verified 10/10/18 10:50) Rash Sulfa (Sulfonamide Antibiotics) Allergy (Intermediate, Verified 10/10/18 10:50) Generalized rash Past Medical History - Past Medical History Cardiac Medical History: Reports: Hx Heart Attack - 2010, Hx Hypercholesterolemia, Hx Hypertension Denies: Hx Coronary Artery Disease Pulmonary Medical History: Reports: Hx Asthma, Hx Sleep Apnea Denies: Hx Bronchitis, Hx COPD, Hx Pneumonia, Hx Tuberculosis Neurological Medical History: Denies: Hx Cerebrovascular Accident, Hx Seizures Endocrine Medical History: Reports: Hx Diabetes Mellitus Type 2 Renal/ Medical History: Denies: Hx Peritoneal Dialysis GI Medical History: Reports: Hx Gastroesophageal Reflux Disease, Hx Ulcer Musculoskeltal Medical History: Reports Hx Arthritis, Reports Hx Musculoskeletal Deformity, Reports Hx Musculoskeletal Trauma Psychiatric Medical History: Reports: Hx Bipolar Disorder, Hx Depression, Hx Post Traumatic Stress Disorder, Hx Schizoaffective Disorder, Hx Schizophrenia Traumatic Medical History: Reports: Hx Fractures - Right foot Infectious Medical History: Past Surgical History: Reports: Hx Adenoidectomy, Hx Appendectomy, Hx Cholecystectomy, Hx Genitourinary Surgery - Bladder stimulator, Hx Gynecologic Surgery - Cervical laser surgery, Hx Orthopedic Surgery - Bunion surgery right foot carpal tunnel right ulnar release both elbows, Hx Tonsillectomy. Denies: Hx Hysterectomy, Hx Pacemaker - Immunizations Hx Diphtheria, Pertussis, Tetanus Vaccination: No Physical Exam - Vital signs Vitals: Temp Pulse Resp BP Pulse Ox 98.3 F 84 16 127/81 H 100 12/08/18 19:34 12/08/18 19:34 12/08/18 19:34 12/08/18 19:34 12/08/18 19:34 Course - Vital Signs Vital signs: Temp Pulse Resp BP Pulse Ox 98.3 F 84 16 127/81 H 100 12/08/18 19:34 12/08/18 19:34 12/08/18 19:34 12/08/18 19:34 12/08/18 19:34 Doctor's Discharge - Discharge Referrals: MARGARET ALDRICH, PAG[facility] [Primary Care Provider] - Follow up as needed
--- NOTE | 2018-12-08 20:21 | RADIOLOGY REPORT (SQ) ---
XR CHEST 1 VIEW HISTORY: Chest pain. COMPARISON: 05/10/2017 FINDINGS: The heart size is normal. The lungs are clear. No pleural effusions or pneumothorax is seen. No acute bony findings. IMPRESSION: No evidence of acute cardiopulmonary disease.
[2018-12-08] MEDS ORDERED: MAG HYDROX/AL HYDROX/SIMETH SUSP 30 ML UDCUP PO ONE (21:26)
[2018-12-08] MEDS ORDERED: LIDOCAINE 2% VISCOUS SOLN 20 ML UDCUP PO ONE (21:26)
[2018-12-08] MEDS ORDERED: METOCLOPRAMIDE HCL ORAL SOLN 10 MG/10 ML UDCUP PO ONE (21:26)
--- NOTE | 2018-12-08 23:10 | ER Document Report ---
ED General - General Chief Complaint: Chest Pain Stated Complaint: CHEST PAIN Time Seen by Provider: 12/08/18 19:48 Primary Care Provider: MARGARET ALDRICH PA-C [NO LOCAL MD] - Follow up as needed TRAVEL OUTSIDE OF THE [place] IN LAST 30 DAYS: No - HPI Patient complains to provider of: Chest pain Notes: Patient coming in for evaluation of chest pain. Patient states she has been ongoing since 630 this morning single-sided chest radiating down her arm. Patient states also having increased acid reflux with some nausea. Patient states that she went to her primary care physician's office an EKG performed a chest x-ray that was otherwise read as normal as was directed to the ER to have a troponin drawn. Patient states she has a history of [place] in the past due to stress. Patient otherwise denies any recent invasive testing. Denies any shortness of breath recent travel denies any trauma to her chest. Patient denies any exacerbating or relieving factors of her pain. - Related Data Allergies/Adverse Reactions: Shellfish * [Shellfish] Allergy (Severe, Verified 10/10/18 10:50) Hives (hospitalized for 2 days) amoxicillin trihydrate [From Augmentin] Allergy (Intermediate, Verified 10/10/18 10:50) Rash Potassium Clavulanate * [From Augmentin] Allergy (Intermediate, Verified 10/10/18 10:50) Rash propoxyphene napsylate [From Darvocet-N 100] Allergy (Intermediate, Verified 10/10/18 10:50) Rash Sulfa (Sulfonamide Antibiotics) Allergy (Intermediate, Verified 10/10/18 10:50) Generalized rash Past Medical History - Social History Smoking Status: Current Every Day Smoker Frequency of alcohol use: Rare Family History: Arthritis, CAD, COPD, DM, Hyperlipidemia, Hypertension, Thyroid Disfunction Patient has suicidal ideation: No Patient has homicidal ideation: No - Past Medical History Cardiac Medical History: Reports: Hx Heart Attack - 2011, Hx Hypercholesterolemia, Hx Hypertension Denies: Hx Coronary Artery Disease Pulmonary Medical History: Reports: Hx Asthma, Hx Sleep Apnea Denies: Hx Bronchitis, Hx COPD, Hx Pneumonia, Hx Tuberculosis Neurological Medical History: Denies: Hx Cerebrovascular Accident, Hx Seizures Endocrine Medical History: Reports: Hx Diabetes Mellitus Type 2 Renal/ Medical History: Denies: Hx Peritoneal Dialysis GI Medical History: Reports: Hx Gastroesophageal Reflux Disease, Hx Ulcer Musculoskeletal Medical History: Reports Hx Arthritis, Reports Hx Musculoskeletal Deformity, Reports Hx Musculoskeletal Trauma Psychiatric Medical History: Reports: Hx Bipolar Disorder, Hx Depression, Hx Post Traumatic Stress Disorder, Hx Schizoaffective Disorder, Hx Schizophrenia Traumatic Medical History: Reports: Hx Fractures - Right foot Infectious Medical History: Past Surgical History: Reports: Hx Adenoidectomy, Hx Appendectomy, Hx Cholecystectomy, Hx Genitourinary Surgery - Bladder stimulator, Hx Gynecologic Surgery - Cervical laser surgery, Hx Orthopedic Surgery - Bunion surgery right foot carpal tunnel right ulnar release both elbows, Hx Tonsillectomy. Denies: Hx Hysterectomy, Hx Pacemaker - Immunizations Hx Diphtheria, Pertussis, Tetanus Vaccination: No Hx Pneumococcal Vaccination: 10/13/97 Review of Systems - Review of Systems Constitutional: No symptoms reported EENT: No symptoms reported Cardiovascular: Chest pain Respiratory: No symptoms reported Gastrointestinal: No symptoms reported Genitourinary: No symptoms reported Female Genitourinary: No symptoms reported Musculoskeletal: No symptoms reported Skin: No symptoms reported Hematologic/Lymphatic: No symptoms reported Neurological/Psychological: No symptoms reported -: Yes All other systems reviewed and negative Physical Exam - Vital signs Vitals: Temp Pulse Resp BP Pulse Ox 98.3 F 84 16 127/81 H 100 12/08/18 19:34 12/08/18 19:34 12/08/18 19:34 12/08/18 19:34 12/08/18 19:34 Interpretation: Normal - General General appearance: Appears well, Alert - HEENT Head: Normocephalic, Atraumatic Eyes: Normal Pupils: PERRL - Respiratory Respiratory status: No respiratory distress Chest status: Tender - Tenderness to palpation of the chest Breath sounds: Normal Chest palpation: Normal - Cardiovascular Rhythm: Regular Heart sounds: Normal auscultation Murmur: No - Abdominal Inspection: Normal Distension: No distension Bowel sounds: Normal Tenderness: Nontender Organomegaly: No organomegaly - Back Back: Normal, Nontender - Extremities General upper extremity: Normal inspection, Nontender, Normal color, Normal ROM, Normal temperature General lower extremity: Normal inspection, Nontender, Normal color, Normal ROM, Normal temperature, Normal weight bearing. No: Henrique's sign - Neurological Neuro grossly intact: Yes Cognition: Normal Orientation: AAOx4 [place] Coma Scale Eye Opening: Spontaneous [place] Coma Scale Verbal: Oriented Johnnie Coma Scale Motor: Obeys Commands Johnnie Coma Scale Total: 15 Speech: Normal Motor strength normal: LUE, RUE, LLE, RLE Sensory: Normal - Psychological Associated symptoms: Normal affect, Normal mood - Skin Skin Temperature: Warm Skin Moisture: Dry Skin Color: Normal Course - Re-evaluation Re-evalutation: 12/08/18 23:09 . Patient's EKG did not reveal any critical pathology. Patient does have a copy of the EKG from her PCPs office also revealing no acute pathology no T wave inversions no ST segment elevation or signs of acute ischemic changes. Laboratory studies were ordered however due to nurses taking care of a critical patient adjacent to this patient they were delayed I was later informed by the nursing staff that the patient eloped from the ER without having her laboratory studies performed. Chest x-ray was reviewed showing no acute pathology. - Vital Signs Vital signs: Temp Pulse Resp BP Pulse Ox 98.3 F 84 16 127/81 H 100 12/08/18 19:34 12/08/18 19:34 12/08/18 19:34 12/08/18 19:34 12/08/18 19:34 Discharge - Discharge Clinical Impression: Chest pain Qualifiers: Chest pain type: unspecified Qualified Code(s): R07.9 - Chest pain, unspecified Disposition: ELOPED Referrals: MARGARET ALDRICH PA-C [NO LOCAL MD] - Follow up as needed
--- NOTE | 2018-12-09 10:35 | EKG REPORT ---
SEVERITY:- OTHERWISE NORMAL ECG - SINUS ARRHYTHMIA, RATE 52-77 : Confirmed by: Zak Olguin 09-Dec-2018 10:34:46
== END 2018-12-08 21:40 | disposition left against medical advice (07) ==
LOC: ER 19:19
DX: R07.9 Chest pain, unspecified (principal); E78.00 Pure hypercholesterolemia, unspecified; I10 Essential (primary) hypertension; E11.9 Type 2 diabetes mellitus without complications; Z90.49 Acquired absence of other specified parts of digestive tract; Z91.013 Allergy to seafood; Z88.2 Allergy status to sulfonamides; Z88.0 Allergy status to penicillin; I25.2 Old myocardial infarction
CPT/HCPCS: 36415; 71045; 93005; 93010; 99281

== ENCOUNTER 2019-02-19 17:04 | Emergency (ER) | payer MEDICAID ==
--- NOTE | 2019-02-19 18:38 | ER Document Report ---
ED Medical Screen (RME) - General Chief Complaint: Flank Pain Stated Complaint: FLANK PAIN Time Seen by Provider: 02/19/19 18:31 Primary Care Provider: BERNICE HANKINS OD [Primary Care Provider] - Follow up as needed Mode of Arrival: Ambulatory Information source: Patient Notes: Patient presents complaining of right flank pain for the past 1 to 2 weeks. Patient states she has had some nausea and some dysuria symptoms. Patient denies any fever. Patient states that she is status post back decompression surgery about a month ago. Patient states that she just found out a few days ago that she is . Patient suspects that she is 11 weeks . I have greeted and performed a rapid initial assessment of this patient. A comprehensive ED assessment and evaluation of the patient, analysis of test results and completion of the medical decision making process will be conducted by additional ED providers. TRAVEL OUTSIDE OF THE [place] IN LAST 30 DAYS: No - Related Data Allergies/Adverse Reactions: Shellfish * [Shellfish] Allergy (Severe, Verified 02/19/19 17:05) Hives (hospitalized for 2 days) amoxicillin trihydrate [From Augmentin] Allergy (Intermediate, Verified 02/19/19 17:05) Rash Potassium Clavulanate * [From Augmentin] Allergy (Intermediate, Verified 02/19/19 17:05) Rash propoxyphene napsylate [From Darvocet-N 100] Allergy (Intermediate, Verified 02/19/19 17:05) Rash Sulfa (Sulfonamide Antibiotics) Allergy (Intermediate, Verified 02/19/19 17:05) Generalized rash Past Medical History - Social History Chew tobacco use (# tins/day): No Frequency of alcohol use: None Drug Abuse: None - Past Medical History Cardiac Medical History: Reports: Hx Heart Attack - 2010, Hx Hypercholesterolemia, Hx Hypertension Denies: Hx Coronary Artery Disease Pulmonary Medical History: Reports: Hx Asthma, Hx Sleep Apnea Denies: Hx Bronchitis, Hx COPD, Hx Pneumonia, Hx Tuberculosis Neurological Medical History: Denies: Hx Cerebrovascular Accident, Hx Seizures Endocrine Medical History: Reports: Hx Diabetes Mellitus Type 2 Renal/ Medical History: Denies: Hx Peritoneal Dialysis GI Medical History: Reports: Hx Gastroesophageal Reflux Disease, Hx Ulcer Musculoskeltal Medical History: Reports Hx Arthritis, Reports Hx Musculoskeletal Deformity, Reports Hx Musculoskeletal Trauma Psychiatric Medical History: Reports: Hx Bipolar Disorder, Hx Depression, Hx Post Traumatic Stress Disorder, Hx Schizoaffective Disorder, Hx Schizophrenia Traumatic Medical History: Reports: Hx Fractures - Right foot Infectious Medical History: Past Surgical History: Reports: Hx Adenoidectomy, Hx Appendectomy, Hx Cholecystectomy, Hx Genitourinary Surgery - Bladder stimulator, Hx Gynecologic Surgery - Cervical laser surgery, Hx Orthopedic Surgery - Bunion surgery right foot carpal tunnel right ulnar release both elbows, Hx Tonsillectomy. Denies: Hx Hysterectomy, Hx Pacemaker - Immunizations Hx Diphtheria, Pertussis, Tetanus Vaccination: No Physical Exam - Vital signs Vitals: Temp Pulse Resp BP Pulse Ox 98.0 F 92 17 112/78 98 02/19/19 17:17 02/19/19 17:17 02/19/19 17:17 02/19/19 17:17 02/19/19 17:17 - Back Back: Tender - Right lower lumbar tenderness Course - Vital Signs Vital signs: Temp Pulse Resp BP Pulse Ox 98.0 F 92 17 112/78 98 02/19/19 17:17 02/19/19 17:17 02/19/19 17:17 02/19/19 17:17 02/19/19 17:17 Doctor's Discharge - Discharge Referrals: BERNICE HANKINS OD [Primary Care Provider] - Follow up as needed
[2019-02-19 19:47] LABS: ABSOLUTE BASOPHILS # (AUTO) 0.2 10^3/uL (0.0-0.2); ABSOLUTE EOSINOPHILS # (AUTO) 0.1 10^3/uL (0.0-0.6); ABSOLUTE LYMPHOCYTES (AUTO) 4.3 10^3/uL (0.5-4.7); ABSOLUTE NEUT (AUTO) 11.4 10^3/uL (1.7-8.2); BASOPHILS % (AUTO) 1.1 % (0-2); EOSINOPHILS % (AUTO) 0.7 % (0-6); HEMATOCRIT 40.3 % (36.0-47.0); HEMOGLOBIN 13.6 g/dL (12.0-15.5); LYMPHOCYTES % (AUTO) 25.5 % (13-45); MEAN CORPUSCULAR HEMOGLOBIN 31.6 pg (27.0-33.4); MEAN CORPUSCULAR HGB CONC 33.9 g/dL (32.0-36.0); MEAN CORPUSCULAR VOLUME 93 fl (80-97); MONOCYTES % (AUTO) 5.8 % (3-13); PLATELET COUNT 241 10^3/uL (150-450); RED BLOOD COUNT 4.32 10^6/uL (3.72-5.28); RED CELL DISTRIBUTION WIDTH 12.7 % (11.5-14.0); SEGMENTED NEUTROPHILS % (AUTO) 66.9 % (42-78); TOTAL CELLS COUNTED % (AUTO) 100 %; WHITE BLOOD COUNT 17.1 10^3/uL (4.0-10.5)
[2019-02-19 19:59] LABS: ALANINE AMINOTRANSFERASE 23 U/L (9-52); ALBUMIN 3.9 g/dL (3.5-5.0); ALKALINE PHOSPHATASE 64 U/L (38-126); ANION GAP 11 (5-19); ASPARTATE AMINO TRANSFERASE 14 U/L (14-36); BILIRUBIN,DIRECT 0.2 mg/dL (0.0-0.4); BILIRUBIN,TOTAL 0.4 mg/dL (0.2-1.3); BLOOD UREA NITROGEN 8 mg/dL (7-20); CALCIUM 10.2 mg/dL (8.4-10.2); CARBON DIOXIDE 24 mmol/L (22-30); CHLORIDE 102 mmol/L (98-107); GLUCOSE 111 mg/dL (75-110); POTASSIUM 4.1 mmol/L (3.6-5.0); SODIUM 136.9 mmol/L (137-145); TOTAL PROTEIN 6.6 g/dL (6.3-8.2)
[2019-02-19 20:20] LABS: APPEARANCE,URINE CLOUDY; BILIRUBIN,URINE NEGATIVE (NEGATIVE); COLOR,URINE YELLOW; GLUCOSE, URINE NEGATIVE (NEGATIVE); KETONES,URINE NEGATIVE (NEGATIVE); LEUKOCYTE ESTERASE,URINE NEGATIVE (NEGATIVE); NITRITE,URINE NEGATIVE (NEGATIVE); PROTEIN,URINE NEGATIVE (NEGATIVE); URINE SPECIFIC GRAVITY 1.012; UROBILINOGEN,URINE NEGATIVE mg/dL (<2.0)
--- NOTE | 2019-02-19 21:28 | RADIOLOGY REPORT (SQ) ---
EXAM DESCRIPTION: US TRANSVAGINAL COMPLETED DATE/TME: 02/19/2019 18:36 CLINICAL HISTORY: 38 years, Female, r flank pain COMPARISON: None. TECHNIQUE: LIMITATIONS: None. FINDINGS: There is a live 7 week 1 day IUP, based on a crown-rump length of 1 cm. Embryonic cardiac activity was measured at 122 bpm. There is a normal amount of amniotic fluid. No evidence of subchorionic hemorrhage. The cervix measures 3 cm in length and is closed. There are several simple cysts in the right ovary, the 2 largest measuring 3.3 and 2.9 cm respectively. No free fluid. IMPRESSION: Unremarkable IUP. Right ovarian cysts, one of which likely represents a corpus luteum cyst. copyright 2010 [employer]- All Rights Reserved
--- NOTE | 2019-02-19 21:31 | RADIOLOGY REPORT (SQ) ---
EXAM DESCRIPTION: [facility]: US RETROPERITONEUM CLINICAL HISTORY: 38 years Female; r flank pain TECHNIQUE: Bilateral renal ultrasound was performed. COMPARISON: None. FINDINGS: Visualized portions of IVC and aorta are unremarkable. Right kidney: 11 x 4.3 x 5.6 cm. No hydronephrosis or shadowing calculi. Left kidney: 11.2 x 5.1 x 4.7 cm. No hydronephrosis or shadowing calculi. Bladder: 52 mL. No shadowing calculi. IMPRESSION: 1. Normal renal sonogram.
--- NOTE | 2019-02-19 22:21 | ER Document Report ---
ED GI/ - General Chief Complaint: Flank Pain Stated Complaint: FLANK PAIN Time Seen by Provider: 02/19/19 18:31 Primary Care Provider: BERNICE HANKINS OD [NO LOCAL MD] - Follow up as needed Mode of Arrival: Ambulatory Information source: Patient Notes: Patient is a 38-year-old female comes emergency room with a history of recent onset of finding out she is . Patient is 4 para 2 with a 1 spontaneous. She states that approximately a month ago she had back surgery for decompression of L3. 2 weeks ago she went to see her primary care provider the put her on some steroids because of a sinus congestion presentation patient took a few doses of that she had a little nipple discharge 2 days later so she went back to her primary care provider the primary care provider checked her urine and she found out she was . They stopped the steroid. Patient comes in tonight with a complaint of a little right kidney pain she states that her [facility] care provider checked her urine and found that she had no urinary tract infection but that when they found that her was there. Patient states his primary care tonight because her urine smells strong. And she has a little bit of hesitancy. Other than that she is afraid she has a kidney stone during her . She denies any other problems at this time. She denies any nausea vomiting or diarrhea. TRAVEL OUTSIDE OF THE [place] IN LAST 30 DAYS: No - HPI Patient complains to provider of: Dysuria. No: Abdominal pain, Diarrhea, Urinary retention, Vaginal bleeding, Vaginal discharge Onset: Last week Timing/Duration: Gradual, Persistent Severity at maximum: Mild Severity in ED: Mild Pain Level: 2 Location: Right flank Vaginal bleeding (Compared to normal period): None LMP: Unknown : 4 Para: 2 Abortions: 1 - Related Data Allergies/Adverse Reactions: Shellfish * [Shellfish] Allergy (Severe, Verified 02/19/19 17:05) Hives (hospitalized for 2 days) amoxicillin trihydrate [From Augmentin] Allergy (Intermediate, Verified 02/19/19 17:05) Rash Potassium Clavulanate * [From Augmentin] Allergy (Intermediate, Verified 02/19/19 17:05) Rash propoxyphene napsylate [From Darvocet-N 100] Allergy (Intermediate, Verified 02/19/19 17:05) Rash Sulfa (Sulfonamide Antibiotics) Allergy (Intermediate, Verified 02/19/19 17:05) Generalized rash Past Medical History - General Information source: Patient - Social History Smoking Status: Never Smoker Chew tobacco use (# tins/day): No Smoking Education Provided: No Frequency of alcohol use: None Drug Abuse: None Family History: Reviewed & Not Pertinent, Arthritis, CAD, COPD, DM, Hyperlipidemia, Hypertension, Thyroid Disfunction Patient has suicidal ideation: No Patient has homicidal ideation: No - Past Medical History Cardiac Medical History: Reports: Hx Heart Attack - 2010, Hx Hypercholesterolemia, Hx Hypertension Denies: Hx Coronary Artery Disease Pulmonary Medical History: Reports: Hx Asthma, Hx Sleep Apnea Denies: Hx Bronchitis, Hx COPD, Hx Pneumonia, Hx Tuberculosis Neurological Medical History: Denies: Hx Cerebrovascular Accident, Hx Seizures Endocrine Medical History: Reports: Hx Diabetes Mellitus Type 2 Renal/ Medical History: Denies: Hx Peritoneal Dialysis GI Medical History: Reports: Hx Gastroesophageal Reflux Disease, Hx Ulcer Musculoskeletal Medical History: Reports Hx Arthritis, Reports Hx Musculoskeletal Deformity, Reports Hx Musculoskeletal Trauma Psychiatric Medical History: Reports: Hx Bipolar Disorder, Hx Depression, Hx Post Traumatic Stress Disorder, Hx Schizoaffective Disorder, Hx Schizophrenia Traumatic Medical History: Reports: Hx Fractures - Right foot Infectious Medical History: Past Surgical History: Reports: Hx Adenoidectomy, Hx Appendectomy, Hx C holecystectomy, Hx Genitourinary Surgery - Bladder stimulator, Hx Gynecologic Surgery - Cervical laser surgery, Hx Orthopedic Surgery - Bunion surgery right foot carpal tunnel right ulnar release both elbows, Hx Tonsillectomy. Denies: Hx Hysterectomy, Hx Pacemaker - Immunizations Hx Diphtheria, Pertussis, Tetanus Vaccination: No Hx Pneumococcal Vaccination: 10/13/97 Review of Systems - Review of Systems Constitutional: No symptoms reported EENT: See HPI, Nose congestion Cardiovascular: No symptoms reported Respiratory: No symptoms reported Gastrointestinal: See HPI, Other - Flank pain Genitourinary: No symptoms reported Female Genitourinary: Musculoskeletal: No symptoms reported Skin: No symptoms reported Hematologic/Lymphatic: No symptoms reported Neurological/Psychological: No symptoms reported -: Yes All other systems reviewed and negative Physical Exam - Vital signs Vitals: Temp Pulse Resp BP Pulse Ox 98.0 F 92 17 112/78 98 02/19/19 17:17 02/19/19 17:17 02/19/19 17:17 02/19/19 17:17 02/19/19 17:17 Interpretation: Normal - Notes Notes: PHYSICAL EXAMINATION: GENERAL: Well-appearing, well-nourished and in no acute distress. HEAD: Atraumatic, normocephalic. EYES: Pupils equal round and reactive to light, extraocular movements intact, conjunctiva are normal. ENT: Examination head and upper airway showed nasal mucosa to be moderately erythematous and edematous with bilateral nasal congestion noted. Patient does display some mild frontal and maxillary sinus tenderness to palpation. Bilateral TMs are bulging with noted air-fluid levels. External canals are clear. Oral cavity shows posterior pharynx to have a large amount of drainage yellowish in color very thick in appearance. Uvula is midline airways patent. NECK: Normal range of motion, supple without lymphadenopathy LUNGS: Breath sounds clear to auscultation bilaterally and equal. No wheezes rales or rhonchi. HEART: Regular rate and rhythm without murmurs ABDOMEN: Examination patient's abdomen shows she has bowel sounds in all 4 quads. She is nontender to palpation in all 4 quads. She has some mild suprapubic tenderness to palpation. She has some mild right-sided flank tenderness to percussion. Female : deferred Musculoskeletal: Normal range of motion, no pitting or edema. No cyanosis. NEUROLOGICAL: Normal speech, normal gait. Normal sensory, motor exams PSYCH: Normal mood, normal affect. SKIN: Warm, Dry, normal turgor, no rashes or lesions noted. Course - Re-evaluation Re-evalutation: 02/20/19 01:52 Patient's course of stay here was pretty benign. She was really here to check out her ultrasound. She was unsure as of her dates of gestation and she was expecting to be anywhere from 11 to 13 weeks . 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 So patient came in tonight having basically normal urine normal labs with the exception of 17,000 white count which is probably deferred towards a sinusitis kind of presentation that she has as well as a that was elevated white count as well. Does not appear to have a kidney stone at this time. Urinary tract infection was not prominent either. We did place her on some Keflex for sinus congestion sinusitis presentation that her primary had started her on previously her head wanted to start her on when she had a reaction to the prednisone. At this point she will follow-up with her primary care provider sometime this week and with the women's health clinic after her referral from the health department. - Vital Signs Vital signs: Temp Pulse Resp BP Pulse Ox 98.2 F 87 18 110/75 99 02/19/19 22:28 02/19/19 22:28 02/19/19 22:28 02/19/19 22:28 02/19/19 22:28 - Laboratory Result Diagrams: 02/19/19 19:12 02/19/19 19:12 Laboratory results interpreted by me: 02/19/19 02/19/19 19:12 19:12 WBC 17.1 H Absolute Neutrophils 11.4 H Sodium 136.9 L Glucose 111 H Beta HCG, Quant 11938.00 H Discharge - Discharge Clinical Impression: Flank pain Qualifiers: Weeks of gestation: less than 8 weeks Qualified Code(s): Z3A.01 - Less than 8 weeks gestation of Sinusitis Qualifiers: Sinusitis location: maxillary Chronicity: acute Recurrence: non-recurrent Qualified Code(s): J01.00 - Acute maxillary sinusitis, unspecified Condition: Stable Disposition: HOME, SELF-CARE Instructions: Flank Pain ([facility]), ([facility]), Sinusitis ([facility]) Additional Instructions: Home and rest. Medication as prescribed. As we discussed the need set up your appointment with your [facility] at [facility] department. I given you copies of your ultrasound reports. Take the antibiotic as prescribed. Should you have increasing amount of pain or discomfort in the flank or dysuria return to ER for recheck. Prescriptions: Cephalexin Monohydrate [Keflex 500 mg Capsule] 500 mg PO Q6H 7 Days #28 capsule Referrals: BERNICE HANKINS, OD [NO LOCAL MD] - Follow up as needed
[2019-02-19 22:41] VITALS: BP 110/75
== END 2019-02-19 22:28 | disposition home or self-care (01) ==
LOC: ER 17:04
DX: O26.91 Pregnancy related conditions, unspecified, first trimester (principal); J01.00 Acute maxillary sinusitis, unspecified; R10.9 Unspecified abdominal pain; R30.0 Dysuria; R39.11 Hesitancy of micturition; N28.89 Other specified disorders of kidney and ureter; Z3A.01 Less than 8 weeks gestation of pregnancy; E78.00 Pure hypercholesterolemia, unspecified; I10 Essential (primary) hypertension; E11.9 Type 2 diabetes mellitus without complications; Z90.49 Acquired absence of other specified parts of digestive tract; Z88.0 Allergy status to penicillin; Z88.2 Allergy status to sulfonamides; Z98.890 Other specified postprocedural states; I25.2 Old myocardial infarction
CPT/HCPCS: 36415; 76770; 76817; 80053; 81001; 84702; 85025; 99284

== ENCOUNTER 2019-04-09 08:48 | Emergency (ER) | payer MEDICAID ==
--- NOTE | 2019-04-09 09:39 | ER Document Report ---
ED Medical Screen (RME) - General Chief Complaint: Abdominal Pain Stated Complaint: LOW ABDOMINAL CRAMPING Time Seen by Provider: 04/09/19 09:36 Primary Care Provider: DAMON SNOWDEN PA-C [Primary Care Provider] - Follow up as needed Mode of Arrival: Wheelchair Information source: Patient Notes: 38-year-old female presents to ED for complaint of cramping to the pelvic area. She states she is also had a increase in urinary frequency this morning. She states she is 14 weeks . She is 4 para 2 with a miscarriage in 2017 her other 2 children are much older. She states that the left side of her pelvic started cramping about 515 in the right about 8:00 this morning. She denies any vaginal bleeding. She states she has a history of diabetes that is resolved high blood pressure asthma and sleep apnea she also has had an appendectomy gallbladder removed tonsils and adenoids right great toe bunionectomy a discectomy this year in January carpal tunnel and ulnar nerve repair. She is a former smoker does not drink or do drugs. Patient is alert oriented respirations regular and unlabored speaking in full sentences. She states she is O- blood type. I have greeted and performed a rapid initial assessment of this patient. A comprehensive ED assessment and evaluation of the patient, analysis of test results and completion of medical decision making process will be conducted by an additional ED providers. Dictation of this chart was performed using voice recognition software; therefore, there may be some unintended grammatical errors. TRAVEL OUTSIDE OF THE [place] IN LAST 30 DAYS: No - Related Data Allergies/Adverse Reactions: Shellfish * [Shellfish] Allergy (Severe, Verified 04/09/19 08:49) Hives (hospitalized for 2 days) amoxicillin trihydrate [From Augmentin] Allergy (Intermediate, Verified 04/09/19 08:49) Rash Potassium Clavulanate * [From Augmentin] Allergy (Intermediate, Verified 04/09/19 08:49) Rash propoxyphene napsylate [From Darvocet-N 100] Allergy (Intermediate, Verified 04/09/19 08:49) Rash Sulfa (Sulfonamide Antibiotics) Allergy (Intermediate, Verified 04/09/19 08:49) Generalized rash Past Medical History - Past Medical History Cardiac Medical History: Reports: Hx Heart Attack - 2010, Hx Hypercholesterolemia, Hx Hypertension Denies: Hx Coronary Artery Disease Pulmonary Medical History: Reports: Hx Asthma, Hx Sleep Apnea Denies: Hx Bronchitis, Hx COPD, Hx Pneumonia, Hx Tuberculosis Neurological Medical History: Denies: Hx Cerebrovascular Accident, Hx Seizures Endocrine Medical History: Reports: Hx Diabetes Mellitus Type 2 Renal/ Medical History: Denies: Hx Peritoneal Dialysis GI Medical History: Reports: Hx Gastroesophageal Reflux Disease, Hx Ulcer Musculoskeltal Medical History: Reports Hx Arthritis, Reports Hx Musculoskeletal Deformity, Reports Hx Musculoskeletal Trauma Psychiatric Medical History: Reports: Hx Bipolar Disorder, Hx Depression, Hx Post Traumatic Stress Disorder, Hx Schizoaffective Disorder, Hx Schizophrenia Traumatic Medical History: Reports: Hx Fractures - Right foot Infectious Medical History: Past Surgical History: Reports: Hx Adenoidectomy, Hx Appendectomy, Hx Cholecystectomy, Hx Genitourinary Surgery - Bladder stimulator, Hx Gynecologic Surgery - Cervical laser surgery, Hx Orthopedic Surgery - Bunion surgery right foot carpal tunnel right ulnar release both elbows, Hx Tonsillectomy. Denies: Hx Hysterectomy, Hx Pacemaker - Immunizations Hx Diphtheria, Pertussis, Tetanus Vaccination: No Physical Exam - Vital signs Vitals: Temp Pulse Resp BP Pulse Ox 97.9 F 71 16 113/66 99 04/09/19 08:54 04/09/19 08:54 04/09/19 08:54 04/09/19 08:54 04/09/19 08:54 Course - Vital Signs Vital signs: Temp Pulse Resp BP Pulse Ox 97.9 F 71 16 113/66 99 04/09/19 08:54 04/09/19 08:54 04/09/19 08:54 04/09/19 08:54 04/09/19 08:54 Doctor's Discharge - Discharge Referrals: DAMON SNOWDEN PA-C [Primary Care Provider] - Follow up as needed
[2019-04-09 10:03] LABS: ABSOLUTE EOSINOPHILS # (AUTO) 0.1 10^3/uL (0.0-0.6); ABSOLUTE LYMPHOCYTES (AUTO) 2.4 10^3/uL (0.5-4.7); ABSOLUTE MONOCYTES (AUTO) 0.5 10^3/uL (0.1-1.4); ABSOLUTE NEUT (AUTO) 6.8 10^3/uL (1.7-8.2); BASOPHILS % (AUTO) 0.5 % (0-2); EOSINOPHILS % (AUTO) 0.7 % (0-6); HEMATOCRIT 37.5 % (36.0-47.0); HEMOGLOBIN 13.2 g/dL (12.0-15.5); LYMPHOCYTES % (AUTO) 24.6 % (13-45); MEAN CORPUSCULAR HEMOGLOBIN 32.6 pg (27.0-33.4); MEAN CORPUSCULAR HGB CONC 35.2 g/dL (32.0-36.0); MEAN CORPUSCULAR VOLUME 93 fl (80-97); MONOCYTES % (AUTO) 5.1 % (3-13); PLATELET COUNT 229 10^3/uL (150-450); RED BLOOD COUNT 4.04 10^6/uL (3.72-5.28); RED CELL DISTRIBUTION WIDTH 12.8 % (11.5-14.0); SEGMENTED NEUTROPHILS % (AUTO) 69.1 % (42-78); TOTAL CELLS COUNTED % (AUTO) 100 %; WHITE BLOOD COUNT 9.8 10^3/uL (4.0-10.5)
[2019-04-09 10:29] LABS: ALANINE AMINOTRANSFERASE 22 U/L (9-52); ALBUMIN 3.6 g/dL (3.5-5.0); ALKALINE PHOSPHATASE 62 U/L (38-126); ANION GAP 5 (5-19); ASPARTATE AMINO TRANSFERASE 13 U/L (14-36); BILIRUBIN,DIRECT 0.2 mg/dL (0.0-0.4); BILIRUBIN,TOTAL 0.4 mg/dL (0.2-1.3); BLOOD UREA NITROGEN 3 mg/dL (7-20); CALCIUM 9.4 mg/dL (8.4-10.2); CARBON DIOXIDE 24 mmol/L (22-30); CHLORIDE 107 mmol/L (98-107); GLUCOSE 85 mg/dL (75-110); POTASSIUM 4.1 mmol/L (3.6-5.0); SODIUM 136.3 mmol/L (137-145)
--- NOTE | 2019-04-09 10:38 | RADIOLOGY REPORT (SQ) ---
EXAM DESCRIPTION: U/S OB 14+ TA/1 GEST W/DOPPLER COMPLETED DATE/TIME: 04/09/2019 10:26 am REASON FOR STUDY: Pelvic cramping 14 weeks COMPARISON: 02/19/2019. TECHNIQUE: Static and Dynamic grayscale imaging performed of gravid uterus using transabdominal appr oach. Additional selected color Doppler and spectral images recorded. All stored on PACS. LIMITATIONS: None. FINDINGS: FETUSES SEEN:1 EGA: 14 week 2 day. Calculated using BPD,FL,HC,AC documented on images. No discrepancy with clinical dates. WENDY: 10/06/2019. ELIZABETH: Adequate amount. PLACENTA: Anterior. GRADE: I PRESENTATION: Transverse. ANATOMY: HEART RATE: 153 beats per minute. FOUR CHAMBER HEART: Poorly visualized. THREE VESSEL CORD: Poorly visualized. CORD INSERTION: Visualized. KIDNEYS AND BLADDER: Poorly visualized. STOMACH: Visualized. Appears normal. SPINE: Poorly visualized. BRAIN AND LATERAL VENTRICLES: Lateral ventricles not seen. Normal brain as visualized. OTHER: No other significant finding. MATERNAL ADNEXA: 2.0 cm cyst in the right ovary. CERVICAL LENGTH: 2.7 cm. Closed. OTHER: No other significant finding. IMPRESSION: LIVING INTRAUTERINE . ESTIMATED GESTATIONAL AGE 14 WEEK 2 DAY. LIMITED EVALUATION OF THE ANATOMY DUE TO EARLY GESTATIONAL AGE. NO VISUALIZED ANOMALIES. Trimester of : Second trimester - 13 weeks 1 day to 27 weeks 6 days. TECHNICAL DOCUMENTATION: JOB ID: [id number] [employer]- All Rights Reserved Reading location - IP/workstation name: [email or web address]
[2019-04-09 11:05] LABS: APPEARANCE,URINE SLIGHTLY-CLOUDY; BILIRUBIN,URINE NEGATIVE (NEGATIVE); COLOR,URINE YELLOW; GLUCOSE, URINE NEGATIVE (NEGATIVE); KETONES,URINE NEGATIVE (NEGATIVE); LEUKOCYTE ESTERASE,URINE NEGATIVE (NEGATIVE); NITRITE,URINE NEGATIVE (NEGATIVE); PROTEIN,URINE NEGATIVE (NEGATIVE); URINE SPECIFIC GRAVITY 1.011; UROBILINOGEN,URINE NEGATIVE mg/dL (<2.0)
--- NOTE | 2019-04-09 11:32 | ER Document Report ---
ED General - General Chief Complaint: Abdominal Pain Stated Complaint: LOW ABDOMINAL CRAMPING Time Seen by Provider: 04/09/19 09:36 Primary Care Provider: DAMON SNOWDEN PA-C [Primary Care Provider] - Follow up in 3-5 days Mode of Arrival: Wheelchair TRAVEL OUTSIDE OF THE [place] IN LAST 30 DAYS: No - HPI Notes: 38-year-old female, [id number], to the emergency department with complaints of pelvic cramping that began this morning with associated urinary frequency. She states that the pelvic cramping started on the left side and then moved over to the right side and she noticed several episodes of urinary frequency and feeling like she had not completely voided. She denies any vaginal bleeding. 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 Denies any chest pain, shortness of breath, nausea, vomiting, chills, fevers, flank pain. She does admit for the past 2 days she seen a white vaginal discharge. - Related Data Allergies/Adverse Reactions: Shellfish * [Shellfish] Allergy (Severe, Verified 04/09/19 08:49) Hives (hospitalized for 2 days) amoxicillin trihydrate [From Augmentin] Allergy (Intermediate, Verified 04/09/19 08:49) Rash Potassium Clavulanate * [From Augmentin] Allergy (Intermediate, Verified 04/09/19 08:49) Rash propoxyphene napsylate [From Darvocet-N 100] Allergy (Intermediate, Verified 04/09/19 08:49) Rash Sulfa (Sulfonamide Antibiotics) Allergy (Intermediate, Verified 04/09/19 08:49) Generalized rash Past Medical History - General Information source: Patient, Parent - Social History Smoking Status: Former Smoker Chew tobacco use (# tins/day): No Frequency of alcohol use: None Drug Abuse: None Family History: Reviewed & Not Pertinent, Arthritis, CAD, COPD, DM, Hyperlipidemia, Hypertension, Thyroid Disfunction Patient has suicidal ideation: No Patient has homicidal ideation: No - Past Medical History Cardiac Medical History: Reports: Hx Heart Attack - 2010, Hx Hypercholesterolemia, Hx Hypertension Denies: Hx Coronary Artery Disease Pulmonary Medical History: Reports: Hx Asthma, Hx Sleep Apnea Denies: Hx Bronchitis, Hx COPD, Hx Pneumonia, Hx Tuberculosis Neurological Medical History: Denies: Hx Cerebrovascular Accident, Hx Seizures Endocrine Medical History: Reports: Hx Diabetes Mellitus Type 2 Renal/ Medical History: Denies: Hx Peritoneal Dialysis GI Medical History: Reports: Hx Gastroesophageal Reflux Disease, Hx Ulcer Musculoskeletal Medical History: Reports Hx Arthritis, Reports Hx Musculoske letal Deformity, Reports Hx Musculoskeletal Trauma Psychiatric Medical History: Reports: Hx Bipolar Disorder, Hx Depression, Hx Post Traumatic Stress Disorder, Hx Schizoaffective Disorder, Hx Schizophrenia Traumatic Medical History: Reports: Hx Fractures - Right foot Infectious Medical History: Past Surgical History: Reports: Hx Adenoidectomy, Hx Appendectomy, Hx Cholecystectomy, Hx Genitourinary Surgery - Bladder stimulator, Hx Gynecologic Surgery - Cervical laser surgery, Hx Orthopedic Surgery - Bunion surgery right foot carpal tunnel right ulnar release both elbows, Hx Tonsillectomy. Denies: Hx Hysterectomy, Hx Pacemaker - Immunizations Hx Diphtheria, Pertussis, Tetanus Vaccination: No Hx Pneumococcal Vaccination: 10/13/97 Review of Systems - Review of Systems Constitutional: denies: Chills, Fever EENT: No symptoms reported Cardiovascular: denies: Chest pain, Palpitations, Syncope, Dizziness, Lightheaded Respiratory: denies: Cough, Short of breath Gastrointestinal: Abdominal pain. denies: Diarrhea, Nausea, Vomiting Genitourinary: Frequency. denies: Dysuria, Discharge, Flank pain, Hematuria, Incontinence, Urgency Female Genitourinary: , Vaginal discharge. denies: Vaginal bleeding Musculoskeletal: No symptoms reported Skin: No symptoms reported Hematologic/Lymphatic: No symptoms reported Neurological/Psychological: No symptoms reported -: Yes All other systems reviewed and negative Physical Exam - Vital signs Vitals: Temp Pulse Resp BP Pulse Ox 97.9 F 71 16 113/66 99 04/09/19 08:54 04/09/19 08:54 04/09/19 08:54 04/09/19 08:54 04/09/19 08:54 Interpretation: Normal - General General appearance: Appears well, Alert - HEENT Head: Normocephalic, Atraumatic Eyes: Normal Pupils: PERRL - Respiratory Respiratory status: No respiratory distress Chest status: Nontender Breath sounds: Normal Chest palpation: Normal - Cardiovascular Rhythm: Regular Heart sounds: Normal auscultation Murmur: No - Abdominal Inspection: Normal Distension: No distension Bowel sounds: Normal Tenderness: Tender - Mild tenderness to palpation over the suprapubic abdomen. No flank pain. Negative McBurney's, no guarding no rebound. No: McBurney's point, Man's sign, Guarding, Rebound Organomegaly: No organomegaly - Genitourinary External exam: Normal Speculum exam: Cervix closed, Vaginal discharge - white Thick vaginal discharge. Cervix closed. There is no vaginal bleeding Vaginal bleeding: None Bimanuel exam: Normal, Uterus enlarged - Uterus is above the pubic symphysis but below the umbilicus. No: Cervical motion tender, Bladder/Urethral tender, Adnexal mass, Adnexal tenderness - Back Back: Normal, Nontender - Extremities General upper extremity: Normal inspection, Nontender, Normal color, Normal ROM, Normal temperature General lower extremity: Normal inspection, Nontender, Normal color, Normal ROM, Normal temperature, Normal weight bearing. No: Henrique's sign - Neurological Neuro grossly intact: Yes Cognition: Normal Orientation: AAOx4 [place] Coma Scale Eye Opening: Spontaneous Johnnie Coma Scale Verbal: Oriented Johnnie Coma Scale Motor: Obeys Commands Johnnie Coma Scale Total: 15 Speech: Normal Motor strength normal: LUE, RUE, LLE, RLE Sensory: Normal - Psychological Associated symptoms: Normal affect, Normal mood - Skin Skin Temperature: Warm Skin Moisture: Dry Skin Color: Normal Course - Vital Signs Vital signs: Temp Pulse Resp BP Pulse Ox 97.8 F 70 15 112/64 99 04/09/19 13:37 04/09/19 13:37 04/09/19 13:37 04/09/19 13:37 04/09/19 13:37 - Laboratory Result Diagrams: 04/09/19 09:48 04/09/19 09:48 Laboratory results interpreted by me: 04/09/19 09:48 Sodium 136.3 L BUN 3 L Creatinine 0.45 L AST 13 L Total Protein 6.0 L Beta HCG, Quant 97129.00 H - Diagnostic Test Radiology reviewed: Image reviewed, Reports reviewed - Transfer of Care Notes: 04/09/19 Impression: Pelvic cramping, vaginal discharge. Patient would like for me to call her with result of wet mount. She is not bleeding on exam and US is reassuring with a IUP with strong HR. UA is not very impressive. Plan to discharge home with close OB follow up. Will place on pelvic rest. urged Tylenol for pain. Encouraged to return if any worsening pain, vaginal bleeding. Noted RH negative status, but because she is NOT bleeding and HAS NOT been bleeding, will not give Rhogam. Noted wet prep -- spoke with patient, will place on 2 g of Flagyl. She agrees with the plan. Urged continued pelvic rest, tylenol for pain. Discharge - Discharge Clinical Impression: Pelvic cramping, with 13 completed weeks gestation, Frequency of urination Condition: Good Disposition: HOME, SELF-CARE Instructions: Pelvic Pain in ([facility]) Additional Instructions: PELVIC REST. FOLLOW WITH YOUR OBGYN WITHOUT FAIL AT THE BEGINNING OF NEXT WEEK. NO SEX, NO DOUCHING, NO TAMPON USE. RETURN IF ANY WORSENING PAIN, BLEEDING, FEVERS of 100.4 and greater. PUSH FLUIDS. MAY TAKE TYLENOL. Prescriptions: Metronidazole [Flagyl 500 mg Tablet] 2,000 mg PO ONCE PRN #4 tablet PRN Reason: Referrals: DAMON SNOWDEN PA-C [Primary Care Provider] - Follow up in 3-5 days
[2019-04-09] MEDS ORDERED: ACETAMINOPHEN 325 MG TABLET PO ONE (11:48)
[2019-04-09 13:08] LABS: T.VAGINALIS (WET MOUNT) NO TRICHOMONAS SEEN; WBCS (WET MOUNT) 3+ WBCS SEEN; YEAST (WET MOUNT) NO YEAST SEEN
[2019-04-09 13:09] LABS: BACTERIA (WET MOUNT) 3+ BACTERIA SEEN; EPITHELIALS (WET MOUNT) 3+ EPITHELIALS SEEN; RBCS (WET MOUNT) NO RBCS SEEN
[2019-04-09 13:42] VITALS: BP 112/64
[2019-04-09 14:40] LABS: CHLAM PCR NOT DETECTED (NOT DETECT)
== END 2019-04-09 13:41 | disposition home or self-care (01) ==
LOC: ER 08:48
DX: O09.521 Supervision of elderly multigravida, first trimester (principal); R10.30 Lower abdominal pain, unspecified; O26.91 Pregnancy related conditions, unspecified, first trimester; R10.2 Pelvic and perineal pain; R35.0 Frequency of micturition; Z3A.13 13 weeks gestation of pregnancy; E78.00 Pure hypercholesterolemia, unspecified; I10 Essential (primary) hypertension; E11.9 Type 2 diabetes mellitus without complications; I25.2 Old myocardial infarction; Z88.0 Allergy status to penicillin; Z88.2 Allergy status to sulfonamides; Z91.013 Allergy to seafood; Z90.49 Acquired absence of other specified parts of digestive tract
CPT/HCPCS: 99284; 86900; 86901; 36415; 87086; 87210; 86850; 84702; 85025; 80053; 81001; 87491; 87591; 76805; 93976; J3490

== ENCOUNTER 2019-05-18 01:20 | Emergency (ER) | payer MEDICAID ==
[2019-05-18 04:27] LABS: ABSOLUTE EOSINOPHILS # (AUTO) 0.1 10^3/uL (0.0-0.6); ABSOLUTE LYMPHOCYTES (AUTO) 3.5 10^3/uL (0.5-4.7); ABSOLUTE MONOCYTES (AUTO) 0.8 10^3/uL (0.1-1.4); ABSOLUTE NEUT (AUTO) 9.8 10^3/uL (1.7-8.2); BASOPHILS % (AUTO) 0.3 % (0-2); EOSINOPHILS % (AUTO) 0.9 % (0-6); HEMATOCRIT 37.8 % (36.0-47.0); LYMPHOCYTES % (AUTO) 24.6 % (13-45); MEAN CORPUSCULAR HEMOGLOBIN 32.2 pg (27.0-33.4); MEAN CORPUSCULAR HGB CONC 34.3 g/dL (32.0-36.0); MEAN CORPUSCULAR VOLUME 94 fl (80-97); MONOCYTES % (AUTO) 5.5 % (3-13); PLATELET COUNT 225 10^3/uL (150-450); RED BLOOD COUNT 4.03 10^6/uL (3.72-5.28); RED CELL DISTRIBUTION WIDTH 12.8 % (11.5-14.0); SEGMENTED NEUTROPHILS % (AUTO) 68.7 % (42-78); TOTAL CELLS COUNTED % (AUTO) 100 %; WHITE BLOOD COUNT 14.3 10^3/uL (4.0-10.5)
[2019-05-18 04:58] LABS: ALBUMIN 3.7 g/dL (3.5-5.0); ALKALINE PHOSPHATASE 60 U/L (38-126); ANION GAP 8 (5-19); ASPARTATE AMINO TRANSFERASE 18 U/L (14-36); BILIRUBIN,DIRECT 0.2 mg/dL (0.0-0.4); BILIRUBIN,TOTAL 0.3 mg/dL (0.2-1.3); BLOOD UREA NITROGEN 6 mg/dL (7-20); CALCIUM 9.5 mg/dL (8.4-10.2); CARBON DIOXIDE 23 mmol/L (22-30); CHLORIDE 105 mmol/L (98-107); GLUCOSE 99 mg/dL (75-110); POTASSIUM 4.1 mmol/L (3.6-5.0); TOTAL PROTEIN 6.2 g/dL (6.3-8.2)
[2019-05-18 06:31] LABS: APPEARANCE,URINE SLIGHTLY-CLOUDY; BILIRUBIN,URINE NEGATIVE (NEGATIVE); COLOR,URINE YELLOW; GLUCOSE, URINE NEGATIVE (NEGATIVE); KETONES,URINE NEGATIVE (NEGATIVE); LEUKOCYTE ESTERASE,URINE NEGATIVE (NEGATIVE); NITRITE,URINE NEGATIVE (NEGATIVE); PROTEIN,URINE NEGATIVE (NEGATIVE); URINE SPECIFIC GRAVITY 1.011; UROBILINOGEN,URINE NEGATIVE mg/dL (<2.0)
--- NOTE | 2019-05-18 07:27 | ER Document Report ---
ED General - General Chief Complaint: Lower Abdominal Pain Stated Complaint: BACK PAIN Time Seen by Provider: 05/18/19 07:09 Primary Care Provider: DAMON SNOWDEN PA-C [Primary Care Provider] - Follow up as needed TRAVEL OUTSIDE OF THE [place] IN LAST 30 DAYS: No - HPI Notes: Patient is a 38-year-old female, G4, P2 at approximately 20 weeks gestation, who presents emergency department for evaluation of back pain that radiates around to her abdomen. She states she was pulling a sheet off of the bed yesterday. She started with the pain in the middle of her back. Later on that day radiated around to her upper abdomen. She denies any fevers or chills. She is had some nausea when the pain is severe. No vomiting. She is still feeling the baby move. Absolutely no vaginal bleeding. No discharge. No urinary symptoms. She denies any exacerbating or alleviating factors. She has not tried any medications to feel better. - Related Data Allergies/Adverse Reactions: Shellfish * [Shellfish] Allergy (Severe, Verified 04/09/19 08:49) Hives (hospitalized for 2 days) amoxicillin trihydrate [From Augmentin] Allergy (Intermediate, Verified 04/09/19 08:49) Rash Potassium Clavulanate * [From Augmentin] Allergy (Intermediate, Verified 04/09/19 08:49) Rash propoxyphene napsylate [From Darvocet-N 100] Allergy (Intermediate, Verified 04/09/19 08:49) Rash Sulfa (Sulfonamide Antibiotics) Allergy (Intermediate, Verified 04/09/19 08:49) Generalized rash Past Medical History - General Information source: Patient - Social History Smoking Status: Current Every Day Smoker Family History: Reviewed & Not Pertinent, Arthritis, CAD, COPD, DM, Hyperlipidemia, Hypertension, Thyroid Disfunction Patient has suicidal ideation: No Patient has homicidal ideation: No - Past Medical History Cardiac Medical History: Reports: Hx Heart Attack - 2011, Hx Hypercholesterolemia, Hx Hypertension Denies: Hx Coronary Artery Disease Pulmonary Medical History: Reports: Hx Asthma, Hx Sleep Apnea Denies: Hx Bronchitis, Hx COPD, Hx Pneumonia, Hx Tuberculosis Neurological Medical History: Denies: Hx Cerebrovascular Accident, Hx Seizures Endocrine Medical History: Reports: Hx Diabetes Mellitus Type 2 Renal/ Medical History: Denies: Hx Peritoneal Dialysis GI Medical History: Reports: Hx Gastroesophageal Reflux Disease, Hx Ulcer Musculoskeletal Medical History: Reports Hx Arthritis, Reports Hx Musculoskeletal Deformity, Reports Hx Musculoskeletal Trauma Psychiatric Medical History: Reports: Hx Bipolar Disorder, Hx Depression, Hx Post Traumatic Stress Disorder, Hx Schizoaffective Disorder, Hx Schizophrenia Traumatic Medical History: Reports: Hx Fractures - Right foot Infectious Medical History: Past Surgical History: Reports: Hx Adenoidectomy, Hx Appendectomy, Hx Cholecystectomy, Hx Genitourinary Surgery - Bladder stimulator, Hx Gynecologic Surgery - Cervical laser surgery, Hx Orthopedic Surgery - Bunion surgery right foot carpal tunnel right ulnar release both elbows, Hx Tonsillectomy. Denies: Hx Hysterectomy, Hx Pacemaker - Immunizations Hx Diphtheria, Pertussis, Tetanus Vaccination: No Hx Pneumococcal Vaccination: 10/13/97 Review of Systems - Review of Systems Constitutional: No symptoms reported EENT: No symptoms reported Cardiovascular: No symptoms reported Respiratory: No symptoms reported Gastrointestinal: See HPI Physical Exam - Vital signs Vitals: Temp Pulse Resp BP Pulse Ox 98.2 F 88 18 101/62 99 05/18/19 01:57 05/18/19 01:57 05/18/19 01:57 05/18/19 01:57 05/18/19 01:57 - Notes Notes: Vital signs reviewed, please refer to chart. Head is normocephalic, atraumatic. Pupils equal round, reactive to light. Neck is supple without meningismus. Heart is regular rate and rhythm. Lungs are clear to auscultation bilaterally. Abdomen is gravid, minimally globally tender without rebound or guarding, no rmoactive bowel sounds throughout. Examination of the spine yields no midline tenderness or step-off. She has paraspinal musculature tenderness from about T10 down through L1, left-sided greater than right, with associated spasm. Negative straight leg raise bilaterally. Strength is plus 5 out of 5 bilateral lower extremities, patellar and Achilles reflexes are symmetrical. Her extremity sensation is intact. Extremities without cyanosis, clubbing. Posterior calves are nontender. Peripheral pulses are equal. Skin is warm and dry. Patient is awake, alert, neurological exam is nonfocal. Course - Re-evaluation Re-evalutation: 05/18/19 07:49 Patient presents emergency department for evaluation. Her pain seems to be mus culoskeletal in nature. Her laboratory investigations revealed a mild leukocytosis, but otherwise are unremarkable. She still feeling the baby move. She is got no vaginal bleeding. I will treat her for musculoskeletal pain with Flexeril. Is expanded the patient the new medication is 100% safe in , and she should use this with caution. She voiced understanding. Otherwise she is to take Tylenol at home for moderate pain, follow-up with OB, return to the ED with worsening or new concerning symptoms of any sort. - Vital Signs Vital signs: Temp Pulse Resp BP Pulse Ox 97.9 F 62 16 111/63 98 05/18/19 07:41 05/18/19 07:41 05/18/19 07:41 05/18/19 07:41 05/18/19 07:41 - Laboratory Result Diagrams: 05/18/19 04:05 05/18/19 04:05 Laboratory results interpreted by me: 05/18/19 05/18/19 04:05 04:05 WBC 14.3 H Absolute Neutrophils 9.8 H Sodium 135.6 L BUN 6 L Creatinine 0.51 L Total Protein 6.2 L Lipase 18.3 L Beta HCG, Quant 54900.00 H Discharge - Discharge Clinical Impression: Strain of thoracic back region, Abdominal pain affecting Condition: Stable Disposition: HOME, SELF-CARE Instructions: Abdominal Pain ([facility]), Low Back Pain ([facility]) Additional Instructions: Flexeril as needed for severe pain. Use this judiciously, it will cause drowsiness and potentially dizziness. Tylenol as needed for moderate pain. Follow-up with your OB this week. If you notice decreased movement, vaginal bleeding, fevers, or any other new or concerning symptoms, return immediately to the emergency department for reevaluation. Referrals: DAMON SNOWDEN PA-C [Primary Care Provider] - Follow up as needed
[2019-05-18 07:42] VITALS: BP 111/63
== END 2019-05-18 07:56 | disposition home or self-care (01) ==
LOC: ER 01:20 → EDSTATUS 03:58 → ER 07:56
DX: O9A.212 Injury, poisoning and certain other consequences of external causes complicating pregnancy, second trimester (principal); S29.012A Strain of muscle and tendon of back wall of thorax, initial encounter; O26.892 Other specified pregnancy related conditions, second trimester; R10.30 Lower abdominal pain, unspecified; M54.9 Dorsalgia, unspecified; Z3A.20 20 weeks gestation of pregnancy; O99.332 Smoking (tobacco) complicating pregnancy, second trimester; O99.512 Diseases of the respiratory system complicating pregnancy, second trimester; J45.909 Unspecified asthma, uncomplicated; O16.2 Unspecified maternal hypertension, second trimester; O24.912 Unspecified diabetes mellitus in pregnancy, second trimester; X58.XXXA Exposure to other specified factors, initial encounter
CPT/HCPCS: 36415; 80053; 81001; 83690; 84702; 85025; 99283

== ENCOUNTER 2019-06-21 15:56 | Outpatient (CLI) | payer MEDICAID ==
[2019-06-21 16:28] LABS: APPEARANCE,URINE CLEAR; BILIRUBIN,URINE NEGATIVE (NEGATIVE); COLOR,URINE YELLOW; GLUCOSE, URINE NEGATIVE (NEGATIVE); KETONES,URINE NEGATIVE (NEGATIVE); LEUKOCYTE ESTERASE,URINE NEGATIVE (NEGATIVE); NITRITE,URINE NEGATIVE (NEGATIVE); PROTEIN,URINE NEGATIVE (NEGATIVE); URINE SPECIFIC GRAVITY 1.009; UROBILINOGEN,URINE NEGATIVE mg/dL (<2.0)
[2019-06-21 16:43] LABS: URINE AMPHETAMINES SCREEN NEGATIVE; URINE BARBITURATES SCREEN NEGATIVE; URINE BENZODIAZEPINES SCREEN NEGATIVE; URINE COCAINE SCREEN NEGATIVE; URINE MARIJUANA (THC) SCREEN NEGATIVE; URINE METHADONE SCREEN NEGATIVE; URINE PHENCYCLIDINE SCREEN NEGATIVE
== END 2019-06-21 16:56 | disposition home or self-care (01) ==
LOC: LC 15:56
PROVIDERS: ATTEND Obstetrics & Gynecology
PROC: 4A1HXCZ Monitoring of Products of Conception, Cardiac Rate, External Approach (ICD-10-PCS; principal; 2019-06-21)
DX: O47.02 False labor before 37 completed weeks of gestation, second trimester (principal); O09.522 Supervision of elderly multigravida, second trimester; Z3A.24 24 weeks gestation of pregnancy
CPT/HCPCS: 80307; 81001

== ENCOUNTER 2019-08-01 22:35 | Outpatient (CLI) | payer MEDICAID ==
[2019-08-01 23:33] LABS: URINE AMPHETAMINES SCREEN NEGATIVE; URINE BARBITURATES SCREEN NEGATIVE; URINE BENZODIAZEPINES SCREEN NEGATIVE; URINE COCAINE SCREEN NEGATIVE; URINE MARIJUANA (THC) SCREEN NEGATIVE; URINE METHADONE SCREEN NEGATIVE; URINE PHENCYCLIDINE SCREEN NEGATIVE
[2019-08-01 23:34] LABS: APPEARANCE,URINE CLEAR; BILIRUBIN,URINE NEGATIVE (NEGATIVE); COLOR,URINE STRAW; GLUCOSE, URINE NEGATIVE (NEGATIVE); KETONES,URINE NEGATIVE (NEGATIVE); LEUKOCYTE ESTERASE,URINE NEGATIVE (NEGATIVE); NITRITE,URINE NEGATIVE (NEGATIVE); PROTEIN,URINE NEGATIVE (NEGATIVE); URINE SPECIFIC GRAVITY 1.003; UROBILINOGEN,URINE NEGATIVE mg/dL (<2.0)
== END 2019-08-02 00:30 | disposition home or self-care (01) ==
LOC: LC 22:35
PROVIDERS: ATTEND Obstetrics & Gynecology
PROC: 4A1HXCZ Monitoring of Products of Conception, Cardiac Rate, External Approach (ICD-10-PCS; principal; 2019-08-01)
DX: O47.03 False labor before 37 completed weeks of gestation, third trimester (principal); Z3A.30 30 weeks gestation of pregnancy
CPT/HCPCS: 80307; 81001

== ENCOUNTER 2019-08-15 00:11 | Outpatient (CLI) | payer MEDICAID ==
--- NOTE | 2019-08-15 01:11 | Non Stress Test Report ---
Non Stress Test Datetime Report Generated by CPN: 08/15/2019 01:10 DEMOGRAPHIC EGA NST: 32.2 INDICATION Indication for Study: Ordered by Provider URINE RESULTS Urine Protein, NST: Negative Urine Ketones - NST: Negative Urine Glucose - NST: Negative Urine Blood - NST: Negative MONITORING Monitor Explained: Monitor Explained; Test Explained; Patient Verbalized Understanding Time on Monitor: 08/15/2019 00:34 Time off Monitor: 08/14/2019 01:43 NST Duration: -1371 NST INTERVENTIONS NST Interventions: PO Hydration Physician Notified NST: [place] BABY A: [id number] BABY A Movement : Present Contraction Frequency : none FHR Baseline : 135 Variability : Moderate 6-25bpm NST Review: Meets Criteria for Reactive NST NST Results: Reactive NST REPORT Report Trigger: Send Report
[2019-08-15] MEDS ORDERED: ONDANSETRON 4 MG TAB.RAPDIS ONE (01:13)
[2019-08-15 01:27] LABS: APPEARANCE,URINE CLEAR; BILIRUBIN,URINE NEGATIVE (NEGATIVE); COLOR,URINE STRAW; GLUCOSE, URINE NEGATIVE (NEGATIVE); KETONES,URINE NEGATIVE (NEGATIVE); LEUKOCYTE ESTERASE,URINE NEGATIVE (NEGATIVE); NITRITE,URINE NEGATIVE (NEGATIVE); PROTEIN,URINE NEGATIVE (NEGATIVE); URINE SPECIFIC GRAVITY 1.003; UROBILINOGEN,URINE NEGATIVE mg/dL (<2.0)
[2019-08-15 01:29] LABS: ADD MANUAL MICROSCOPIC YES
[2019-08-15 01:30] LABS: BACTERIA,URINE TRACE /HPF
[2019-08-15] MEDS ORDERED: ONDANSETRON 4 MG TAB.RAPDIS PO ONE ×2 (01:30)
[2019-08-15 01:41] LABS: URINE AMPHETAMINES SCREEN NEGATIVE; URINE BARBITURATES SCREEN NEGATIVE; URINE BENZODIAZEPINES SCREEN NEGATIVE; URINE COCAINE SCREEN NEGATIVE; URINE MARIJUANA (THC) SCREEN NEGATIVE; URINE METHADONE SCREEN NEGATIVE; URINE PHENCYCLIDINE SCREEN NEGATIVE
== END 2019-08-15 01:51 | disposition home or self-care (01) ==
LOC: LC 00:11
PROVIDERS: ATTEND Obstetrics & Gynecology Gynecology
PROC: 4A1HXCZ Monitoring of Products of Conception, Cardiac Rate, External Approach (ICD-10-PCS; principal; 2019-08-15)
DX: O47.1 False labor at or after 37 completed weeks of gestation (principal); O09.523 Supervision of elderly multigravida, third trimester; O99.333 Smoking (tobacco) complicating pregnancy, third trimester; F17.210 Nicotine dependence, cigarettes, uncomplicated; Z3A.32 32 weeks gestation of pregnancy
CPT/HCPCS: 59025; 81001; 80307; S0119

== ENCOUNTER 2019-08-26 15:17 | Outpatient (CLI) | payer MEDICAID ==
[2019-08-26] MEDS ORDERED: RINGERS SOLUTION,LACTATED 1,000 ML IV PRN (15:38)
[2019-08-26] MEDS ORDERED: ONDANSETRON HCL INJ/PF 4 MG/2 ML SDV IV PRN (15:39)
[2019-08-26 16:11] LABS: ABSOLUTE BASOPHILS # (AUTO) 0.1 10^3/uL (0.0-0.2); ABSOLUTE EOSINOPHILS # (AUTO) 0.1 10^3/uL (0.0-0.6); ABSOLUTE LYMPHOCYTES (AUTO) 3.4 10^3/uL (0.5-4.7); ABSOLUTE NEUT (AUTO) 12.3 10^3/uL (1.7-8.2); BASOPHILS % (AUTO) 0.6 % (0-2); EOSINOPHILS % (AUTO) 0.5 % (0-6); HEMATOCRIT 38.4 % (36.0-47.0); HEMOGLOBIN 13.3 g/dL (12.0-15.5); LYMPHOCYTES % (AUTO) 20.2 % (13-45); MEAN CORPUSCULAR HGB CONC 34.6 g/dL (32.0-36.0); MEAN CORPUSCULAR VOLUME 95 fl (80-97); MONOCYTES % (AUTO) 5.7 % (3-13); PLATELET COUNT 254 10^3/uL (150-450); RED BLOOD COUNT 4.03 10^6/uL (3.72-5.28); TOTAL CELLS COUNTED % (AUTO) 100 %; WHITE BLOOD COUNT 16.8 10^3/uL (4.0-10.5)
[2019-08-26 16:29] LABS: APPEARANCE,URINE SLIGHTLY-CLOUDY; BILIRUBIN,URINE NEGATIVE (NEGATIVE); COLOR,URINE YELLOW; GLUCOSE, URINE NEGATIVE (NEGATIVE); KETONES,URINE NEGATIVE (NEGATIVE); LEUKOCYTE ESTERASE,URINE NEGATIVE (NEGATIVE); NITRITE,URINE NEGATIVE (NEGATIVE); PROTEIN,URINE NEGATIVE (NEGATIVE); UROBILINOGEN,URINE NEGATIVE mg/dL (<2.0)
[2019-08-26 16:32] LABS: ALBUMIN 3.5 g/dL (3.5-5.0); ALKALINE PHOSPHATASE 117 U/L (38-126); ANION GAP 10 (5-19); ASPARTATE AMINO TRANSFERASE 17 U/L (14-36); BILIRUBIN,DIRECT 0.1 mg/dL (0.0-0.4); BILIRUBIN,TOTAL 0.3 mg/dL (0.2-1.3); BLOOD UREA NITROGEN 7 mg/dL (7-20); CALCIUM 9.6 mg/dL (8.4-10.2); CARBON DIOXIDE 18 mmol/L (22-30); CHLORIDE 108 mmol/L (98-107); GLUCOSE 81 mg/dL (75-110); POTASSIUM 4.2 mmol/L (3.6-5.0); TOTAL PROTEIN 6.2 g/dL (6.3-8.2)
[2019-08-26] MEDS ORDERED: ONDANSETRON HCL INJ/PF 4 MG/2 ML SDV ONE (16:34)
[2019-08-26 16:52] LABS: URINE AMPHETAMINES SCREEN NEGATIVE; URINE BARBITURATES SCREEN NEGATIVE; URINE BENZODIAZEPINES SCREEN NEGATIVE; URINE COCAINE SCREEN NEGATIVE; URINE MARIJUANA (THC) SCREEN NEGATIVE; URINE METHADONE SCREEN NEGATIVE; URINE PHENCYCLIDINE SCREEN NEGATIVE
== END 2019-08-26 17:15 | disposition home or self-care (01) ==
LOC: LC 15:17
PROVIDERS: ATTEND Obstetrics & Gynecology
PROC: 4A1HXCZ Monitoring of Products of Conception, Cardiac Rate, External Approach (ICD-10-PCS; principal; 2019-08-26)
DX: O24.410 Gestational diabetes mellitus in pregnancy, diet controlled (principal); O09.523 Supervision of elderly multigravida, third trimester; O21.2 Late vomiting of pregnancy; Z3A.34 34 weeks gestation of pregnancy
CPT/HCPCS: 59025; 36415; 85025; 80053; 81001; 80307; J2405

== ENCOUNTER 2019-09-07 08:46 | Outpatient (CLI) | payer MEDICAID ==
--- NOTE | 2019-09-07 08:55 | Non Stress Test Report ---
Non Stress Test Datetime Report Generated by CPN: 09/07/2019 08:55 DEMOGRAPHIC EGA NST: 34.0 INDICATION Indication for Study (NST) Other: nausea, elevated BS MONITORING Monitor Explained: Monitor Explained; Test Explained; Patient Verbalized Understanding Time on Monitor: 08/26/2019 15:35 Time off Monitor: 08/26/2019 17:16 NST Duration: 101 NST INTERVENTIONS NST Interventions: PO Hydration BABY A: [id number] BABY A Movement : Present Contraction Frequency : occ FHR Baseline : 120 Accelerations : 15X15 Decelerations : None Variability : Moderate 6-25bpm NST Review: Meets Criteria for Reactive NST NST Review and Verified By : Lindsey Camp RNC NST Results: Reactive NST REPORT Report Trigger: Send Report
[2019-09-07] MEDS ORDERED: RINGERS SOLUTION,LACTATED 1,000 ML IV ONE (09:30)
[2019-09-07 09:42] LABS: APPEARANCE,URINE SLIGHTLY-CLOUDY; BILIRUBIN,URINE NEGATIVE (NEGATIVE); COLOR,URINE YELLOW; GLUCOSE, URINE NEGATIVE (NEGATIVE); KETONES,URINE NEGATIVE (NEGATIVE); LEUKOCYTE ESTERASE,URINE TRACE (NEGATIVE); NITRITE,URINE NEGATIVE (NEGATIVE); PROTEIN,URINE NEGATIVE (NEGATIVE); URINE SPECIFIC GRAVITY 1.012; UROBILINOGEN,URINE NEGATIVE mg/dL (<2.0)
[2019-09-07 10:10] LABS: URINE AMPHETAMINES SCREEN NEGATIVE; URINE BARBITURATES SCREEN NEGATIVE; URINE BENZODIAZEPINES SCREEN NEGATIVE; URINE COCAINE SCREEN NEGATIVE; URINE MARIJUANA (THC) SCREEN NEGATIVE; URINE METHADONE SCREEN NEGATIVE; URINE PHENCYCLIDINE SCREEN NEGATIVE
[2019-09-07] MEDS ORDERED: HYDROXYZINE PAMOATE 50 MG CAPSULE ONE (11:32)
== END 2019-09-07 11:45 | disposition home or self-care (01) ==
LOC: LC 08:46
PROVIDERS: ATTEND Obstetrics & Gynecology
PROC: 4A1HXCZ Monitoring of Products of Conception, Cardiac Rate, External Approach (ICD-10-PCS; principal; 2019-09-07)
DX: O16.3 Unspecified maternal hypertension, third trimester (principal); Z3A.34 34 weeks gestation of pregnancy
CPT/HCPCS: 81001; 80307; 59025; J3490; 87086

== ENCOUNTER 2019-09-10 08:52 | Outpatient (CLI) | payer MEDICAID ==
--- NOTE | 2019-09-10 08:55 | Non Stress Test Report ---
Non Stress Test Datetime Report Generated by CPN: 09/10/2019 08:55 DEMOGRAPHIC EGA NST: 35.5 INDICATION Indication for Study (NST) Other: back pain VITAL SIGNS Temperature - NST: 97.8 Pulse - NST: 75 RESP - NST: 16 NBPSYS NST: 108 NBPDIA NST: 61 MONITORING Monitor Explained: Monitor Explained; Test Explained; Patient Verbalized Understanding Time on Monitor: 09/07/2019 09:07 Time off Monitor: 09/07/2019 11:35 NST Duration: 148 NST INTERVENTIONS NST Interventions: IV Fluids; Reposition Patient Physician Notified NST: A. Oliveira, CNM BABY A: [id number] BABY A Movement : Present Contraction Frequency : irregular FHR Baseline : 125 Accelerations : 15X15 Decelerations : None Variability : Moderate 6-25bpm NST Review: Meets Criteria for Reactive NST NST Review and Verified By : Elisa Parr RN NSBerhane Results: Reactive NST REPORT Report Trigger: Send Report
--- NOTE | 2019-09-10 09:46 | Non Stress Test Report ---
Non Stress Test Datetime Report Generated by CPN: 09/10/2019 09:46 DEMOGRAPHIC Test Number: 4 EGA NST: 36.1 INDICATION Indication for Study (NST) Other: AMA VITAL SIGNS Temperature - NST: 98.1 Pulse - NST: 75 RESP - NST: 18 NBPSYS NST: 105 NBPDIA NST: 58 MONITORING Monitor Explained: Monitor Explained; Test Explained; Patient Verbalized Understanding Time on Monitor: 09/10/2019 08:58 Time off Monitor: 09/10/2019 09:27 NST Duration: 29 NST INTERVENTIONS NST Interventions: PO Hydration; Reposition Patient Physician Notified NST: DR YOUNGER BABY A Movement : Present Contraction Frequency : NONE FHR Baseline : 135 Accelerations : 15X15 Decelerations : None Variability : Moderate 6-25bpm NST Review: Meets Criteria for Reactive NST NST Review and Verified By : KEMI Al NST Results: Reactive NST REPORT Report Trigger: Send Report
== END 2019-09-10 09:33 | disposition home or self-care (01) ==
LOC: LC 08:52
PROVIDERS: ATTEND Obstetrics & Gynecology
PROC: 4A1HXCZ Monitoring of Products of Conception, Cardiac Rate, External Approach (ICD-10-PCS; principal; 2019-09-10)
DX: O26.893 Other specified pregnancy related conditions, third trimester (principal); Z3A.35 35 weeks gestation of pregnancy; M54.9 Dorsalgia, unspecified
CPT/HCPCS: 59025

== ENCOUNTER 2019-09-11 05:56 | Outpatient (CLI) | payer MEDICAID ==
[2019-09-11 06:37] LABS: APPEARANCE,URINE SLIGHTLY-CLOUDY; BILIRUBIN,URINE NEGATIVE (NEGATIVE); COLOR,URINE YELLOW; GLUCOSE, URINE NEGATIVE (NEGATIVE); KETONES,URINE NEGATIVE (NEGATIVE); LEUKOCYTE ESTERASE,URINE NEGATIVE (NEGATIVE); NITRITE,URINE NEGATIVE (NEGATIVE); PROTEIN,URINE NEGATIVE (NEGATIVE); URINE SPECIFIC GRAVITY 1.009; UROBILINOGEN,URINE NEGATIVE mg/dL (<2.0)
[2019-09-11 06:52] LABS: URINE AMPHETAMINES SCREEN NEGATIVE; URINE BARBITURATES SCREEN NEGATIVE; URINE BENZODIAZEPINES SCREEN NEGATIVE; URINE COCAINE SCREEN NEGATIVE; URINE MARIJUANA (THC) SCREEN NEGATIVE; URINE METHADONE SCREEN NEGATIVE; URINE PHENCYCLIDINE SCREEN NEGATIVE
--- NOTE | 2019-09-11 06:55 | Non Stress Test Report ---
Non Stress Test Datetime Report Generated by CPN: 09/11/2019 06:55 DEMOGRAPHIC EGA NST: 36.2 INDICATION Indication for Study (NST) Other: LC URINE RESULTS Urine Protein, NST: Negative Urine Ketones - NST: Negative Urine Glucose - NST: Negative Urine Blood - NST: Negative MONITORING Monitor Explained: Monitor Explained; Test Explained; Patient Verbalized Understanding Time on Monitor: 09/11/2019 06:14 Time off Monitor: 09/11/2019 06:49 NST Duration: 35 NST INTERVENTIONS NST Interventions: PO Hydration; Reposition Patient; Other NST Interventions Other: popsicle Physician Notified NST: Younger BABY A: [id number] BABY A Movement : Present Contraction Frequency : none FHR Baseline : 130 Accelerations : 15X15 Decelerations : None Variability : Moderate 6-25bpm NST Review: Meets Criteria for Reactive NST NST Review and Verified By : Mitesh Yeh RN Results: Reactive NST REPORT Report Trigger: Send Report
== END 2019-09-11 07:01 | disposition home or self-care (01) ==
LOC: LC 05:56
PROVIDERS: ATTEND Obstetrics & Gynecology
PROC: 4A1HXCZ Monitoring of Products of Conception, Cardiac Rate, External Approach (ICD-10-PCS; principal; 2019-09-11)
DX: O36.8130 Decreased fetal movements, third trimester, not applicable or unspecified (principal); Z3A.36 36 weeks gestation of pregnancy
CPT/HCPCS: 59025; 80307; 81001

== ENCOUNTER 2019-09-17 02:00 | Outpatient (CLI) | payer MEDICAID ==
[2019-09-17 02:53] LABS: APPEARANCE,URINE CLEAR; BILIRUBIN,URINE NEGATIVE (NEGATIVE); COLOR,URINE STRAW; GLUCOSE, URINE NEGATIVE (NEGATIVE); KETONES,URINE NEGATIVE (NEGATIVE); LEUKOCYTE ESTERASE,URINE NEGATIVE (NEGATIVE); NITRITE,URINE NEGATIVE (NEGATIVE); PROTEIN,URINE NEGATIVE (NEGATIVE); URINE SPECIFIC GRAVITY 1.003; UROBILINOGEN,URINE NEGATIVE mg/dL (<2.0)
[2019-09-17 03:09] LABS: URINE AMPHETAMINES SCREEN NEGATIVE; URINE BARBITURATES SCREEN NEGATIVE; URINE BENZODIAZEPINES SCREEN NEGATIVE; URINE COCAINE SCREEN NEGATIVE; URINE MARIJUANA (THC) SCREEN NEGATIVE; URINE METHADONE SCREEN NEGATIVE; URINE PHENCYCLIDINE SCREEN NEGATIVE
[2019-09-17] MEDS ORDERED: HYDROXYZINE PAMOATE 50 MG CAPSULE PO ONE (03:17)
[2019-09-17] MEDS ORDERED: HYDROXYZINE PAMOATE 50 MG CAPSULE ONE (03:18)
--- NOTE | 2019-09-17 03:46 | Non Stress Test Report ---
Non Stress Test Datetime Report Generated by CPN: 09/17/2019 03:46 DEMOGRAPHIC EGA NST: 37.1 INDICATION Indication for Study (NST) Other: labor check MONITORING Monitor Explained: Monitor Explained; Test Explained; Patient Verbalized Understanding Time on Monitor: 09/17/2019 02:21 Time off Monitor: 09/17/2019 02:55 NST Duration: 34 NST INTERVENTIONS NST Interventions: None Physician Notified NST: Dr. Sun BABY A: [id number] BABY A Movement : Present Contraction Frequency : 0 FHR Baseline : 130 Accelerations : 15X15 Decelerations : None Variability : Moderate 6-25bpm NST Review: Meets Criteria for Reactive NST NST Review and Verified By : J.Field RN NST Results: Reactive NST REPORT Report Trigger: Send Report
== END 2019-09-17 03:41 | disposition home or self-care (01) ==
LOC: LC 02:00
PROVIDERS: ATTEND Obstetrics & Gynecology
PROC: 4A1HXCZ Monitoring of Products of Conception, Cardiac Rate, External Approach (ICD-10-PCS; principal; 2019-09-17)
DX: O09.523 Supervision of elderly multigravida, third trimester (principal); O99.333 Smoking (tobacco) complicating pregnancy, third trimester; F17.210 Nicotine dependence, cigarettes, uncomplicated; Z3A.37 37 weeks gestation of pregnancy
CPT/HCPCS: 59025; 81005; 80307; J3490

== ENCOUNTER 2019-09-21 11:54 | Outpatient (CLI) | payer MEDICAID ==
[2019-09-21 12:30] LABS: APPEARANCE,URINE CLOUDY; BILIRUBIN,URINE NEGATIVE (NEGATIVE); GLUCOSE, URINE NEGATIVE (NEGATIVE); KETONES,URINE TRACE mg/dL (NEGATIVE); LEUKOCYTE ESTERASE,URINE SMALL (NEGATIVE); NITRITE,URINE NEGATIVE (NEGATIVE); PROTEIN,URINE 30 mg/dL (NEGATIVE); URINE SPECIFIC GRAVITY 1.021
[2019-09-21 12:31] LABS: COLOR,URINE YELLOW
[2019-09-21 12:54] LABS: URINE AMPHETAMINES SCREEN NEGATIVE; URINE BARBITURATES SCREEN NEGATIVE; URINE BENZODIAZEPINES SCREEN NEGATIVE; URINE COCAINE SCREEN NEGATIVE; URINE MARIJUANA (THC) SCREEN NEGATIVE; URINE METHADONE SCREEN NEGATIVE; URINE PHENCYCLIDINE SCREEN NEGATIVE
[2019-09-21] MEDS ORDERED: HYDROXYZINE PAMOATE 50 MG CAPSULE ONE (13:07)
[2019-09-21] MEDS ORDERED: HYDROXYZINE PAMOATE 50 MG CAPSULE PO ONE (13:30)
== END 2019-09-21 13:10 | disposition home or self-care (01) ==
LOC: LC 11:54
PROVIDERS: ATTEND Obstetrics & Gynecology
PROC: 4A1HXCZ Monitoring of Products of Conception, Cardiac Rate, External Approach (ICD-10-PCS; principal; 2019-09-21)
DX: O47.1 False labor at or after 37 completed weeks of gestation (principal); O09.523 Supervision of elderly multigravida, third trimester; O99.333 Smoking (tobacco) complicating pregnancy, third trimester; F17.210 Nicotine dependence, cigarettes, uncomplicated; Z3A.38 38 weeks gestation of pregnancy
CPT/HCPCS: 59025; 81005; 80307; J3490

== ENCOUNTER 2019-09-30 05:53 | Inpatient (IN) | payer MEDICAID ==
[2019-09-30] MEDS ORDERED: RINGERS SOLUTION,LACTATED 300 ML IV ONE (06:17)
[2019-09-30] MEDS ORDERED: OXYTOCIN/NORMAL SALINE 20 UNIT/1,000 ML RTUINJ IV PRN ×2 (06:17→21:12)
[2019-09-30 07:15] LABS: ABSOLUTE EOSINOPHILS # (AUTO) 0.1 10^3/uL (0.0-0.6); ABSOLUTE LYMPHOCYTES (AUTO) 2.8 10^3/uL (0.5-4.7); ABSOLUTE MONOCYTES (AUTO) 0.9 10^3/uL (0.1-1.4); ABSOLUTE NEUT (AUTO) 8.4 10^3/uL (1.7-8.2); BASOPHILS % (AUTO) 0.4 % (0-2); HEMATOCRIT 34.8 % (36.0-47.0); HEMOGLOBIN 12.1 g/dL (12.0-15.5); LYMPHOCYTES % (AUTO) 22.7 % (13-45); MEAN CORPUSCULAR HEMOGLOBIN 32.9 pg (27.0-33.4); MEAN CORPUSCULAR HGB CONC 34.7 g/dL (32.0-36.0); MEAN CORPUSCULAR VOLUME 95 fl (80-97); MONOCYTES % (AUTO) 7.5 % (3-13); PLATELET COUNT 224 10^3/uL (150-450); RED BLOOD COUNT 3.67 10^6/uL (3.72-5.28); RED CELL DISTRIBUTION WIDTH 12.7 % (11.5-14.0); SEGMENTED NEUTROPHILS % (AUTO) 68.4 % (42-78); TOTAL CELLS COUNTED % (AUTO) 100 %; WHITE BLOOD COUNT 12.3 10^3/uL (4.0-10.5)
[2019-09-30] MEDS ORDERED: OXYTOCIN 10 UNIT/ML VIAL ONE (08:01)
[2019-09-30] MEDS ORDERED: MISOPROSTOL 0.2 MG TABLET ONE (08:01)
[2019-09-30] MEDS ORDERED: OXYTOCIN/NORMAL SALINE 20 UNIT/1,000 ML RTUINJ ONE (08:02)
[2019-09-30] MEDS ORDERED: LIDOCAINE 1% INJ-PF (10 MG/ML) 30 ML SDV ONE (08:02)
[2019-09-30] MEDS: RINGERS SOLUTION,LACTATED 1,000 ML IV PRN ×2 (08:10→17:00)
--- NOTE | 2019-09-30 10:29 | Admission Physical ---
Datetime Report Generated by [facility]: 09/30/2019 10:29 CURRENT ADMISSION Chief Complaint: Scheduled Induction of Labor Indication for Induction: Maternal Diabetes Indication for Induction- Other: Advanced Maternal Age Admit Impression : Term, Intrauterine ; No Active Labor; Intact Membranes; Induction of Labor Admit Plan: Admit to Unit; Initiate Labor Induction Protocol ALLERGIES Medication Allergies: Yes (Annotations: Data stored by [facility] on behalf of user) Medication Allergies: propoxyphene napsylate/MO/Rash (09/30/2019); amoxicillin trihydrate/MO/Rash (09/30/2019); Sulfa (Sulfonamide Antibiotics)/MO/Generalized randy (09/30/2019); Shellfish */SV/Hives (hospital (09/30/2019); Potassium Clavulanate */MO/Rash (09/30/2019) Latex: Unknown OBSTETRICAL HISTORY EDC: 10/01/2019 00:00 (Annotations: Data stored by CPN on behalf of user) : 4 Para: 2 Term: 2 : 0 SAB: 1 IAB: 0 Ectopic: 0 Livin Cesareans: 0 VBACs: 0 Multiple Births: 0 Gestational Diabetes: Yes Rh Sensitization: No Incompetent Cervix: No YURIY: No Infertility: No ART Treatment: No Uterine Anomaly: No IUGR: No Hx Previous C/S: No Macrosomia: No Hx Loss/Stillborn: No PIH: No Hx : No Placenta Previa/Abruption: No Depression/PP Depression: Yes PTL/PROM: No Post Hemorrhage: No Current Procedures: Ultrasound; NST Obstetrical History Comments: G1: 1999 39 weeks 6 lbs 7 oz female G2: 2001 41 weeks 7 lbs 7 oz male G3: SAB G4: current AMA, on glyburide 1.25 HS for FBS SEE RECORDS Alcohol: No Marijuana : No Cocaine: No Other Illicit Drugs: No Cigarettes: Current Everyday Smoker. [id number] Cigarette Frequency: 5 - 10 per day Advised to Stop: Yes MEDICAL HISTORY Diabetes: No Diabetes Type: Type II - NIDDM Blood Transfusion: No Pulmonary Disease (Asthma, TB): No Breast Disease: No Hypertension: Yes Ingredient Specialist Surgery: Yes Heart Disease: Yes Hosp/Surgery: Yes Autoimmune Disorder: No Anesthetic Complications: No Kidney Disease: Yes Abnormal Pap Smear: Yes Neuro/Epilepsy: No Psychiatric Disorders: Yes Other Medical Diseases: No Hepatitis/Liver Disease: No Significant Family History: No Varicosities/Phlebitis: No Trauma/Violence : No Thyroid Dysfunction: No Medical History Comments: HX of [place] see cardiology, sleep apnea, weak POS antibody Gabriela +, AMA, hx of HTN not on meds, Disceectomy L3/L4 cleared to have epidural, hx of rapid weight loss of 130 lbs 2011 gallbladder, 1994 LEEP _ tonsils 1997 tonsils 1997 sinus 2013 right foot 2017 ulnax2 carpal tunnel 2012 bladder stimulator 2019 back surgery h/o type II diabetes, lost weight and no longer diabetic, urinary imcontinence, depression, HPV INFECTIOUS HISTORY Gonorrhea: No Genital Herpes: No Chlamydia: No Tuberculosis: No Syphilis: No Hepatitis: No HIV/AIDS Exposure: No Rash or Viral Illness: No HPV: Yes PHYSICAL EXAM General: Normal HEENT: Normal Neurologic: Normal Thyroid: Normal Heart: Normal Lungs: Normal Breast: Normal Back: Normal Abdomen: Normal Genitourinary Exam: Normal Extremities: Normal DTRs: Normal Pelvic Type: Adequate Vital Signs: Reviewed; Within Normal Limits VAGINAL EXAM Dilatation: 1 Effacement: thick Station: -3 Contraction Comments: irregular MEMBRANES Membranes: Intact FETUS A EGA: 39.6 Monitoring: External US FHR- Baseline: 120s Variability: Moderate 6-25bpm Accelerations: 15X15 Decelerations: None FHR Category: Category I Admit Comment: w/ an IUP at 39-5/7 weeks presents to L_D for a scheduled IOL secondary to AMA, GDM (diet controlled) and a weak positive Gabriela. She reports good movement. She GBS Neg. Her cervix is 1//-3 and vertex. Pitocin is planned. PLANS FOR LABOR AND DELIVERY Labor and Delivery: None Pain Management: Epidural Feeding Preference: Breast Circumcision: Yes INFORMED CONSENT Informed Consent Obtained: Vaginal Delivery Signature: with User ID: [email or web address]
[2019-09-30] MEDS ORDERED: NALBUPHINE HCL INJ 10 MG/1 ML AMPULE ONE (14:20)
[2019-09-30] MEDS ORDERED: NALBUPHINE HCL INJ 10 MG/1 ML AMPULE INJ ONE (14:29)
[2019-09-30] MEDS ORDERED: BUPIVACAINE HCL 0.25 % INJ/PF (2.5 MG/1 ML) 30 ML VIAL ONE (16:55)
[2019-09-30] MEDS ORDERED: PHENYLEPHRINE HCL INJ/PF 10 MG/1 ML SDV ONE (16:55)
[2019-09-30] MEDS ORDERED: EPHEDRINE SULFATE INJ 50 MG/1 ML AMPULE ONE (16:55)
[2019-09-30] MEDS ORDERED: FENTANYL/BUPIVACAINE/NS/PF 300 MCG/150 ML RTUINJ EPI ONE (16:55)
[2019-09-30] MEDS ORDERED: FENTANYL CITRATE INJ/PF 100 MCG/2 ML AMPUL ONE (16:55)
[2019-09-30] MEDS ORDERED: BENZOCAINE/MENTHOL AEROSOL SPRAY 56 ML TOP PRN (21:12)
[2019-09-30] MEDS ORDERED: ACETAMINOPHEN WITH CODEINE #3 TABLET PO PRN (21:12)
[2019-09-30] MEDS ORDERED: DIPH/PERTUSS(ACELL)/TETANUS VAC/PF 0.5 ML SYR (>=10YO) IM PRN (21:12)
[2019-09-30] MEDS ORDERED: ZOLPIDEM TARTRATE 5 MG TABLET PO PRN (21:12)
[2019-09-30] MEDS ORDERED: DIBUCAINE 1% OINTMENT 28 GM TP PRN (21:12)
[2019-10-01] MEDS ORDERED: IBUPROFEN 800 MG TABLET ONE (00:13)
[2019-10-01] MEDS: IBUPROFEN 800 MG TABLET PO SCH ×4 (00:15→21:51)
[2019-10-01] MEDS ORDERED: INFLUENZA QUAD (6MOS+) 2019-20 VAC 0.5 ML SYR IM ONE (04:40)
[2019-10-01 06:31] LABS: HEMATOCRIT 32.3 % (36.0-47.0); HEMOGLOBIN 11.2 g/dL (12.0-15.5); MEAN CORPUSCULAR HGB CONC 34.7 g/dL (32.0-36.0); MEAN CORPUSCULAR VOLUME 95 fl (80-97); PLATELET COUNT 224 10^3/uL (150-450); RED BLOOD COUNT 3.39 10^6/uL (3.72-5.28); RED CELL DISTRIBUTION WIDTH 12.9 % (11.5-14.0); WHITE BLOOD COUNT 18.2 10^3/uL (4.0-10.5)
[2019-10-01] MEDS: FERROUS SULFATE 325 MG TABLET PO SCH ×2 (11:35→17:04)
[2019-10-01] MEDS: DOCUSATE SODIUM 100 MG CAPSULE PO SCH ×2 (11:35→17:04)
[2019-10-01] MEDS: SENNOSIDES/DOCUSATE 8.6-50 MG 1 EACH TABLET PO SCH (11:35)
[2019-10-01] MEDS: PRENATAL VITAMIN W DHA CAPSULE PO SCH (11:35)
--- NOTE | 2019-10-01 15:50 | PDOC PROGRESS REPORT ---
Subjective-OB Progress Note for:: 10/01/19 - PP Day #1, doing well, c/o Rt sided sciatic pain since delivering. She has been up OOB and voiding. Denies difficutly w/ ambulation. O neg/ needs Rhogam/ Rubella Immune. Physical Exam (OB) Vital Signs: Temp Pulse Resp BP Pulse Ox 97.6 F 66 14 108/66 95 10/01/19 07:45 10/01/19 07:45 10/01/19 07:45 10/01/19 07:45 10/01/19 07:45 Intake & Output 09/30/19 10/01/19 10/02/19 06:59 06:59 06:59 Intake Total 1000 Balance 1000 Weight 82.2 kg - General General Appearance: Appears well, Alert - Lochia Lochia Amount: Small 10-25 ml Lochia Color: Rubra/Red - Abdomen Description: Soft, Round Hernia Present: No Fundal Description: Firm, Midline Fundal Height: u/u - u/2 - Respiratory Respiratory Status: No respiratory distress - Abdominal Inspection: Normal Tenderness: Nontender - Genitourinary Genitourinary Note: voiding - Extremities Upper extremity: Normal inspection Lower extremities: Edema - Neurological Cognition: Normal Orientation: AAOx4 - Psychological Associated symptoms: Normal affect, Normal mood - Skin Skin Temperature: Warm Skin Moisture: Dry Objective-Diagnostic Laboratory: 10/01/19 06:07 10/01/19 10/01/19 06:07 06:07 WBC 18.2 H RBC 3.39 L Hgb 11.2 L Hct 32.3 L MCV 95 MCH 33.0 MCHC 34.7 RDW 12.9 Plt Count 224 Blood Type O NEGATIVE Assessment and Plan(PN) - Assessment and Plan (1) (normal spontaneous vaginal delivery) Is this a current diagnosis for this admission?: Yes (2) Advanced maternal age (AMA), 40 years or greater Is this a current diagnosis for this admission?: Yes (3) Sleep apnea in adult Is this a current diagnosis for this admission?: Yes (4) Hx of type 2 diabetes mellitus Is this a current diagnosis for this admission?: Yes (5) Hypertension affecting in third trimester Is this a current diagnosis for this admission?: Yes Plan:: Ambulation encouraged, watch BP and Blood sugar, routine PP orders - Time Spent with Patient Time with patient: Less than 15 minutes Medications reviewed and adjusted accordingly: Yes - Disposition Anticipated Discharge: Home Within: within 24 hours
[2019-10-02] MEDS: ACETAMINOPHEN WITH CODEINE #3 TABLET PO PRN ×2 (01:50→09:17)
[2019-10-02] MEDS: IBUPROFEN 800 MG TABLET PO SCH ×2 (05:43→14:07)
[2019-10-02] MEDS: DOCUSATE SODIUM 100 MG CAPSULE PO SCH (09:17)
[2019-10-02] MEDS: SENNOSIDES/DOCUSATE 8.6-50 MG 1 EACH TABLET PO SCH (09:17)
[2019-10-02] MEDS: FERROUS SULFATE 325 MG TABLET PO SCH (09:17)
[2019-10-02] MEDS: PRENATAL VITAMIN W DHA CAPSULE PO SCH (09:17)
--- NOTE | 2019-10-02 11:11 | PDOC DISCHARGE SUMMARY ---
Impression - Admit/DC Date/PCP Admission Date/Primary Care Provider: 09/30/19 05:53 MARCIA ELDER MD Discharge Date: 10/02/19 - PP Day #2, doing well, still having some Rt sided sciatic pain but states she has hx of having back problems and has had surgery in the past. Plans to get in touch w/ her doctor next week. O negative, needs Rhogam prior to d/c home, - Discharge Diagnosis (1) (normal spontaneous vaginal delivery) Is this a current diagnosis for this admission?: Yes (2) Advanced maternal age (AMA), 40 years or greater Is this a current diagnosis for this admission?: Yes (3) Sleep apnea in adult Is this a current diagnosis for this admission?: Yes (4) Hx of type 2 diabetes mellitus Is this a current diagnosis for this admission?: Yes (5) Hypertension affecting in third trimester Is this a current diagnosis for this admission?: Yes - Additional Information Resuscitation Status: Full Code Discharge Diet: As Tolerated, Regular Discharge Activity: Activity As Tolerated, No Lifting Over 10 Pounds, Pelvic Rest Referrals: [facility] [Provider Group] Prescriptions: Ibuprofen [Motrin 800 mg Tablet] 800 mg PO Q8 #60 tablet Home Medications: Glyburide/Metformin HCl [Glyburide-Metformin 2.5-500 mg] 1 each PO DAILY 08/26/19 Prenat 115/Iron Fum/Folic/Dss [ 19 Tablet] 1 tab PO DAILY 08/26/19 Ibuprofen [Motrin 800 mg Tablet] 800 mg PO Q8 #60 tablet 10/02/19 HPI Reason(s) for Admission: Induction of Labor, Medical Complications Admission Note: type 2 DM Procedures: NST, Ultrasound Intrapartum Procedure(s): Spontaneous Vaginal Delivery Hospital Course Hospital Course: normal Results Laboratory Results: WBC 18.2 10^3/uL (4.0-10.5) H 10/01/19 06:07 RBC 3.39 10^6/uL (3.72-5.28) L 10/01/19 06:07 Hgb 11.2 g/dL (12.0-15.5) L 10/01/19 06:07 Hct 32.3 % (36.0-47.0) L 10/01/19 06:07 MCV 95 fl (80-97) 10/01/19 06:07 MCH 33.0 pg (27.0-33.4) 10/01/19 06:07 MCHC 34.7 g/dL (32.0-36.0) 10/01/19 06:07 RDW 12.9 % (11.5-14.0) 10/01/19 06:07 Plt Count 224 10^3/uL (150-450) 10/01/19 06:07 Lymph % (Auto) 22.7 % (13-45) 09/30/19 06:49 [place] % (Auto) 7.5 % (3-13) 09/30/19 06:49 Eos % (Auto) 1.0 % (0-6) 09/30/19 06:49 Baso % (Auto) 0.4 % (0-2) 09/30/19 06:49 Absolute Neuts (auto) 8.4 10^3/uL (1.7-8.2) H 09/30/19 06:49 Absolute Lymphs (auto) 2.8 10^3/uL (0.5-4.7) 09/30/19 06:49 Absolute Monos (auto) 0.9 10^3/uL (0.1-1.4) 09/30/19 06:49 Absolute Eos (auto) 0.1 10^3/uL (0.0-0.6) 09/30/19 06:49 Absolute Basos (auto) 0.0 10^3/uL (0.0-0.2) 09/30/19 06:49 Seg Neutrophils % 68.4 % (42-78) 09/30/19 06:49 RPR NONREACTIVE (NONREACTIVE) 09/30/19 06:49 Blood Type O NEGATIVE 10/01/19 06:07 Antibody Screen POSITIVE 09/30/19 06:49 Antibody Identification RHOGAM INDUCED ANTI-D 09/30/19 06:49 Screen NEGATIVE 10/01/19 06:07 Plan Health Concerns: watch blood sugars Plan of Treatment: d/c to home, f/u with [facility] in 4 wks for PP check
[2019-10-02 12:46] VITALS: BP 109/54
--- NOTE | 2019-10-08 12:53 | Delivery Summary ---
Del Sum A-C Datetime Report Generated by CPN: 10/08/2019 12:53 DELIVERY PERSONNEL DELIVERY PERSONNEL: [id number] Delivery Doctor:: Angelica Lindsey MD Labor and Delivery Nurse:: Apryl Abarca RN Nursery Nurse:: Misa Perez RN Manager [employer]/RISK CONTROL ANALYST: Pratibha Frazier, POWER PROJECT MANAGER MATERNAL INFORMATION Delivery Anesthesia: Epidural Medications After Delivery: Pitocin Drip 20 Units/1000ml NSS Delivery QBL: 150 Delivery QBL Comment: Delivery 150 recover 86 total 236 Maternal Complications: Precipitous Labor (<3hrs) Provider Comments: of a viable male @2053 w/ an CONRAD w/ nuchal cord x 3 presentation; APGARS 6, 9; no lacs LABOR SUMMARY EDC: 10/01/2019 00:00 (Annotations: Data stored by [facility] on behalf of user) No. Babies in Womb: 1 Attempted: No Labor Anesthesia: Epidural LABOR INFORMATION Reason for Induction: Post Dates; Maternal Diabetes Onset of Labor: 09/30/2019 19:30 Complete Dilatation: 09/30/2019 20:00 Oxytocin: Induction Group B Beta Strep: negative Antibiotics # of Doses: none Steroids Given: None Reason Steroids Not Administered: Not Applicable MEMBRANES Membranes Rupture Method: Artificial Rupture of Membranes: 09/30/2019 16:47 Length of Rupture (hr): 4.12 Amniotic Fluid Color: Clear Amniotic Fluid Amount: Small Amniotic Fluid Odor: Normal STAGES OF LABOR Stage 1 hr: 0 Stage 1 min: 30 Stage 2 hr: 0 Stage 2 min: 54 Stage 3 hr: 0 Stage 3 min: 11 Total Time in Labor hr: 1 Total Time in Labor min: 35 VAGINAL DELIVERY Episiotomy: None Laceration #1: None Laceration Extension #1: N/A Laceration Repair: Not Applicable Sponge Count Correct: Yes Sharps Count Correct: Yes CSECTION DELIVERY Primary Indication: N/A Secondary Indication: N/A CSection Incidence: N/A Labor: N/A Elective: N/A CSection Incision: N/A BABY A INFORMATION Delivery Date/Time: 09/30/2019 20:54 Method of Delivery: Vaginal Method of Delivery: Vaginal Born in Route : No : N/A Forceps: N/A Vacuum Extraction: N/A Shoulder Dystocia : No PRESENTATION/POSITION BABY A Presentation: Cephalic Presentation: Cephalic Presentation: Cephalic Cephalic Presentation: Vertex Vertex Position: Left Occipital Anterior Breech Presentation: N/A PLACENTA INFORMATION BABY A Placenta Delivery Time : 09/30/2019 21:05 Placenta Method of Delivery: Spontaneous Placenta Method of Delivery: Spontaneous Placenta Status: Delivered SCORES BABY A Heart Rate 1 min: Slow, Below 100 bpm Resp Effort 1 min: Slow, Irregular Reflex Irritability 1 min: Grimace Muscle Tone 1 min: Active Motion Color 1 min: Body [place], Extremities Blue Resuscitation Effort 1 min: Tactile Stimulation SCORE 1 MIN: 6 Heart Rate 5 min: >100 bpm Resp Effort 5 min: Good Cry Reflex Irritability 5 min: Cough or Sneeze or Pulls Away Muscle Tone 5 min: Active Motion Color 5 min: Body [place], Extremities Blue SCORE 5 MIN: 9 INFANT INFORMATION BABY A Gestational Age at Delivery: 39.6 Gestational Status: Full Term- 39- 40.6 Weeks Infant Outcome : Liveborn Infant Condition : Stable Sex: Male Sex: Male IDENTIFICATION BABY A Infant Verification Date/Time: 09/30/2019 21:02 ID Band Number: [id number] Mother's Name Verified: Yes RN Verifying Infant: JNiebuhr,RN Additional Verifying Personnel: EJilek,RN WEIGHT/LENGTH BABY A Birthweight (gm): 2741 Weight (lb): 6 Weight (oz): 1 Infant Length (in): 19.00 Length (cm): 48.26 CORD INFORMATION BABY A No. Cord Vessels: 3 Nuchal Cord : Around Neck x3, Tight Cord Blood Taken: Yes-For Eval (Mom's Blood Type - or O+) Infant Suction: None ASSESSMENT BABY A Skin to Skin: Yes SIGNATURES Signature: with User ID: [email or web address]
== END 2019-10-02 17:30 | disposition home or self-care (01) | DRG 806 ==
LOC: LR 05:53 → 2S 10-01 03:40
PROVIDERS: ADMIT Obstetrics & Gynecology; ATTEND Obstetrics & Gynecology
PROC: 10E0XZZ Delivery of Products of Conception, External Approach (ICD-10-PCS; principal; 2019-09-30)
PROC: 3E033VJ Introduction of Other Hormone into Peripheral Vein, Percutaneous Approach (ICD-10-PCS; 2019-09-30)
PROC: 10907ZC Drainage of Amniotic Fluid, Therapeutic from Products of Conception, Via Natural or Artificial Opening (ICD-10-PCS; 2019-09-30)
PROC: 3E0334Z Introduction of Serum, Toxoid and Vaccine into Peripheral Vein, Percutaneous Approach (ICD-10-PCS; 2019-10-02)
PROC: 3E02340 Introduction of Influenza Vaccine into Muscle, Percutaneous Approach (ICD-10-PCS; 2019-10-02)
DX: O24.425 Gestational diabetes mellitus in childbirth, controlled by oral hypoglycemic drugs (principal); O36.0930 Maternal care for other rhesus isoimmunization, third trimester, not applicable or unspecified; Z37.0 Single live birth; O10.92 Unspecified pre-existing hypertension complicating childbirth; O99.334 Smoking (tobacco) complicating childbirth; F17.210 Nicotine dependence, cigarettes, uncomplicated; G47.30 Sleep apnea, unspecified; O62.3 Precipitate labor; O69.1XX0 Labor and delivery complicated by cord around neck, with compression, not applicable or unspecified; Z3A.39 39 weeks gestation of pregnancy; Z88.6 Allergy status to analgesic agent; Z88.1 Allergy status to other antibiotic agents; Z88.2 Allergy status to sulfonamides; Z23 Encounter for immunization; I25.2 Old myocardial infarction
CPT/HCPCS: 36415; 85025; 85027; 85461; 86592; 86850; 86870; 86900; 86901; 90686; J2300; J2370; J2590; J2790; J3010; J3490

== ENCOUNTER 2019-10-14 20:39 | Emergency (ER) | payer MEDICAID ==
[2019-10-14] MEDS ORDERED: ACETAMINOPHEN 325 MG TABLET PO ONE (21:51)
--- NOTE | 2019-10-14 21:52 | ER Document Report ---
ED Medical Screen (RME) - General Chief Complaint: Vaginal Bleeding Stated Complaint: POST BLEEDING Time Seen by Provider: 10/14/19 21:48 Primary Care Provider: MARCIA ELDER MD [Primary Care Provider] - Follow up as needed Notes: Patient presents 2 weeks after vaginal delivery. Patient states she started having heavy bleeding about 11 hours ago in which she is saturating 1-2 pads an hour. Patient does complain of some headache pain. Patient denies any complications with the delivery. Patient denies any abdominal pain symptoms. Patient denies any lightheadedness or dizziness. I have greeted and performed a rapid initial assessment of this patient. A comprehensive ED assessment and evaluation of the patient, analysis of test results and completion of the medical decision making process will be conducted by additional ED providers. TRAVEL OUTSIDE OF THE [place] IN LAST 30 DAYS: No - Related Data Allergies/Adverse Reactions: Shellfish * [Shellfish] Allergy (Severe, Verified 09/30/19 06:02) Hives (hospitalized for 2 days) amoxicillin trihydrate [From Augmentin] Allergy (Intermediate, Verified 09/30/19 06:02) Rash Potassium Clavulanate * [From Augmentin] Allergy (Intermediate, Verified 09/30/19 06:02) Rash propoxyphene napsylate [From Darvocet-N 100] Allergy (Intermediate, Verified 09/30/19 06:02) Rash Sulfa (Sulfonamide Antibiotics) Allergy (Intermediate, Verified 09/30/19 06:02) Generalized rash Past Medical History - Past Medical History Cardiac Medical History: Reports: Hx Heart Attack - 2010, Hx Hypercholesterolemia, Hx Hypertension Denies: Hx Coronary Artery Disease Pulmonary Medical History: Reports: Hx Asthma, Hx Sleep Apnea Denies: Hx Bronchitis, Hx COPD, Hx Pneumonia, Hx Tuberculosis Neurological Medical History: Denies: Hx Cerebrovascular Accident, Hx Seizures Endocrine Medical History: Reports: Hx Diabetes Mellitus Type 2 Renal/ Medical History: Denies: Hx Peritoneal Dialysis GI Medical History: Reports: Hx Gastroesophageal Reflux Disease, Hx Ulcer Musculoskeltal Medical History: Reports Hx Arthritis, Reports Hx Musculoskeletal Deformity, Reports Hx Musculoskeletal Trauma Psychiatric Medical History: Reports: Hx Bipolar Disorder, Hx Depression, Hx Post Traumatic Stress Disorder, Hx Schizoaffective Disorder, Hx Schizophrenia Traumatic Medical History: Reports: Hx Fractures - Right foot Infectious Medical History: Past Surgical History: Reports: Hx Adenoidectomy, Hx Appendectomy, Hx Cholecystectomy, Hx Genitourinary Surgery - Bladder stimulator, Hx Gynecologic Surgery - Cervical laser surgery, Hx Orthopedic Surgery - Bunion surgery right foot carpal tunnel right ulnar release both elbows, Hx Tonsillectomy. Denies: Hx Hysterectomy, Hx Pacemaker - Immunizations Hx Diphtheria, Pertussis, Tetanus Vaccination: No Physical Exam - Vital signs Vitals: Temp Pulse Resp BP Pulse Ox 97.6 F 103 H 20 132/88 H 100 10/14/19 20:44 10/14/19 20:44 10/14/19 20:44 10/14/19 20:44 10/14/19 20:44 - General General appearance: Appears well, Alert Course - Vital Signs Vital signs: Temp Pulse Resp BP Pulse Ox 97.6 F 103 H 20 132/88 H 100 10/14/19 20:44 10/14/19 20:44 10/14/19 20:44 10/14/19 20:44 10/14/19 20:44 Doctor's Discharge - Discharge Referrals: MARCIA ELDER MD [Primary Care Provider] - Follow up as needed
[2019-10-14 22:24] LABS: ABSOLUTE BASOPHILS # (AUTO) 0.1 10^3/uL (0.0-0.2); ABSOLUTE EOSINOPHILS # (AUTO) 0.2 10^3/uL (0.0-0.6); ABSOLUTE MONOCYTES (AUTO) 0.9 10^3/uL (0.1-1.4); ABSOLUTE NEUT (AUTO) 8.5 10^3/uL (1.7-8.2); BASOPHILS % (AUTO) 0.4 % (0-2); EOSINOPHILS % (AUTO) 1.2 % (0-6); HEMATOCRIT 40.2 % (36.0-47.0); MEAN CORPUSCULAR HEMOGLOBIN 32.6 pg (27.0-33.4); MEAN CORPUSCULAR HGB CONC 34.8 g/dL (32.0-36.0); MEAN CORPUSCULAR VOLUME 94 fl (80-97); MONOCYTES % (AUTO) 6.6 % (3-13); PLATELET COUNT 381 10^3/uL (150-450); RED BLOOD COUNT 4.29 10^6/uL (3.72-5.28); RED CELL DISTRIBUTION WIDTH 12.6 % (11.5-14.0); SEGMENTED NEUTROPHILS % (AUTO) 62.8 % (42-78); TOTAL CELLS COUNTED % (AUTO) 100 %; WHITE BLOOD COUNT 13.6 10^3/uL (4.0-10.5)
[2019-10-14 22:48] LABS: ALKALINE PHOSPHATASE 110 U/L (38-126); ANION GAP 9 (5-19); ASPARTATE AMINO TRANSFERASE 20 U/L (14-36); BILIRUBIN,DIRECT 0.3 mg/dL (0.0-0.4); BILIRUBIN,TOTAL 0.3 mg/dL (0.2-1.3); BLOOD UREA NITROGEN 13 mg/dL (7-20); CALCIUM 9.8 mg/dL (8.4-10.2); CARBON DIOXIDE 25 mmol/L (22-30); CHLORIDE 103 mmol/L (98-107); GLUCOSE 95 mg/dL (75-110); POTASSIUM 4.2 mmol/L (3.6-5.0); TOTAL PROTEIN 6.9 g/dL (6.3-8.2)
--- NOTE | 2019-10-15 00:03 | RADIOLOGY REPORT (SQ) ---
Ultrasound pelvis on 10/14/2019 at 10:35 PM CLINICAL INDICATION: Two weeks , heavy vaginal bleeding COMPARISON: None FINDINGS: Multiple sonographic images are obtained throughout the pelvis by transabdominal approach only, both transverse and sagittal images are obtained. Uterus measures approximately 13.7 x 6.3 x 7.0 cm. There is a heterogeneous hyperechoic 1.3 cm abnormality along the endometrium with associated increased flow in this region. This raises a question of retained products of conception. Recommend gynecologic consultation. Consider transvaginal imaging to better evaluate. The right ovary measures approximately 2.1 x 2.6 x 1.9 cm. Flow is demonstrated in the right ovary. The left ovary measures approximately 1.7 x 2.6 x 1.7 cm. Flow is demonstrated in the left ovary. No adnexal mass or fluid collection is noted. No free fluid is noted. IMPRESSION: Heterogeneous predominantly hyperechoic rounded abnormality along the endometrium of unknown definite etiology. Cannot exclude a small area of retained products of conception. Consider transvaginal imaging to better evaluate and recommend gynecologic consultation.
[2019-10-15] MEDS ORDERED: ONDANSETRON 4 MG TAB.RAPDIS PO ONE (00:33)
--- NOTE | 2019-10-15 00:45 | ER Document Report ---
ED GI/ - General Chief Complaint: Vaginal Bleeding Stated Complaint: POST BLEEDING Time Seen by Provider: 10/14/19 21:48 Primary Care Provider: [facility] [Provider Group] - 10/15/19 MARCIA ELDER MD [ACTIVE STAFF] - Follow up as needed Mode of Arrival: Ambulatory Information source: Patient Notes: 39-year-old female presented to ED for 2-week for vaginal bleeding. She did have a vaginal delivery. She went to her son's 2-week checkup when she noticed she was having bleeding. Patient had stopped bleeding then on 10 October she had a couple bleeding blood clots. She stated on 12 October she passed a second clot. Today she went home from her son's 2-week checkup and noticed a large amount of bleeding in her incontinence pad. She states she has been having to change her pad every 1-2 hours for the last 11 hours. She states she has called [facility] and they told her to come to the emergency ro om for labs and ultrasound. TRAVEL OUTSIDE OF THE [place] IN LAST 30 DAYS: No - HPI Patient complains to provider of: Vaginal discharge - 2 weeks Onset: Other - See HPI Timing/Duration: Intermittent Quality of pain: No pain Pain Level: Denies Location: Vaginal Vaginal bleeding (Compared to normal period): Heavier LMP: 2 weeks Associated symptoms: Other - Vaginal bleeding Exacerbated by: Movement, Walking Relieved by: Denies Similar symptoms previously: Yes Recently seen / treated by doctor: Yes - Related Data Allergies/Adverse Reactions: Shellfish * [Shellfish] Allergy (Severe, Verified 09/30/19 06:02) Hives (hospitalized for 2 days) amoxicillin trihydrate [From Augmentin] Allergy (Intermediate, Verified 09/30/19 06:02) Rash Potassium Clavulanate * [From Augmentin] Allergy (Intermediate, Verified 09/30/19 06:02) Rash propoxyphene napsylate [From Darvocet-N 100] Allergy (Intermediate, Verified 09/30/19 06:02) Rash Sulfa (Sulfonamide Antibiotics) Allergy (Intermediate, Verified 09/30/19 06:02) Generalized rash Past Medical History - General Information source: Patient - Social History Smoking Status: Current Every Day Smoker Cigarette use (# per day): Yes - 5 to 7 cigarettes a day Smoking Education Provided: Yes - 4 minutes Frequency of alcohol use: None Drug Abuse: None Lives with: Family Family History: Reviewed & Not Pertinent, Arthritis, CAD, COPD, DM, Hyperlipidemia, Hypertension, Thyroid Disfunction Patient has suicidal ideation: No Patient has homicidal ideation: No - Past Medical History Cardiac Medical History: Reports: Hx Heart Attack - 2011 due to stress, Hx Hypercholesterolemia, Hx Hypertension Pulmonary Medical History: Reports: Hx Asthma, Hx Sleep Apnea EENT Medical History: Reports: None Neurological Medical History: Reports: None Endocrine Medical History: Reports: Hx Diabetes Mellitus Type 2 Renal/ Medical History: Reports: None Malignancy Medical History: Reports: None GI Medical History: Reports: Hx Gastroesophageal Reflux Disease, Hx Ulcer Musculoskeletal Medical History: Reports Hx Arthritis, Reports Hx Musculoskeletal Deformity, Reports Hx Musculoskeletal Trauma Skin Medical History: Reports None Psychiatric Medical History: Reports: Hx Bipolar Disorder, Hx Depression, Hx Post Traumatic Stress Disorder, Hx Schizoaffective Disorder, Hx Schizophrenia Traumatic Medical History: Reports: Hx Fractures - Right foot Infectious Medical History: Reports: None Past Surgical History: Reports: Hx Adenoidectomy, Hx Appendectomy, Hx Cholecystectomy, Hx Genitourinary Surgery - Bladder stimulator, Hx Gynecologic Surgery - Cervical laser surgery, Hx Orthopedic Surgery - Bunion surgery right foot carpal tunnel right ulnar release both elbows, Hx Tonsillectomy - Immunizations Hx Diphtheria, Pertussis, Tetanus Vaccination: No Hx Pneumococcal Vaccination: 10/13/97 Review of Systems - Review of Systems Constitutional: No symptoms reported EENT: No symptoms reported Cardiovascular: No symptoms reported Respiratory: No symptoms reported Gastrointestinal: No symptoms reported Genitourinary: No symptoms reported Female Genitourinary: Vaginal bleeding Musculoskeletal: No symptoms reported Skin: No symptoms reported Hematologic/Lymphatic: No symptoms reported Neurological/Psychological: No symptoms reported -: Yes All other systems reviewed and negative Physical Exam - Vital signs Vitals: Temp Pulse Resp BP Pulse Ox 97.6 F 103 H 20 132/88 H 100 10/14/19 20:44 10/14/19 20:44 10/14/19 20:44 10/14/19 20:44 10/14/19 20:44 Interpretation: Normal - General General appearance: Appears well, Alert - HEENT Head: Normocephalic, Atraumatic Eyes: Normal Pupils: PERRL - Respiratory Respiratory status: No respiratory distress Chest status: Nontender Breath sounds: Normal Chest palpation: Normal - Cardiovascular Rhythm: Regular Heart sounds: Normal auscultation Murmur: No - Abdominal Inspection: Normal Distension: No distension Bowel sounds: Normal Tenderness: Nontender Organomegaly: No organomegaly - Genitourinary Notes: Did not do a vaginal exam due to her 2 weeks . Patient states she is saturating 1 to 2 pack pads per day. Transabdominal ultrasound did show products of conception retained. Discussed lab results and ultrasound with Dr. Whittington who stated the patient should follow-up in his office first thing in the morning. Patient was instructed to call women's health follow-up with the OB/G YN. - Back Back: Normal, Nontender - Extremities General upper extremity: Normal inspection, Nontender, Normal color, Normal ROM, Normal temperature General lower extremity: Normal inspection, Nontender, Normal color, Normal ROM, Normal temperature, Normal weight bearing. No: Henrique's sign - Neurological Neuro grossly intact: Yes Cognition: Normal Orientation: AAOx4 Johnnie Coma Scale Eye Opening: Spontaneous [place] Coma Scale Verbal: Oriented Johnnie Coma Scale Motor: Obeys Commands [place] Coma Scale Total: 15 Speech: Normal Motor strength normal: LUE, RUE, LLE, RLE Sensory: Normal - Psychological Associated symptoms: Normal affect, Normal mood - Skin Skin Temperature: Warm Skin Moisture: Dry Skin Color: Normal Course - Vital Signs Vital signs: Temp Pulse Resp BP Pulse Ox 97.9 F 72 16 117/82 97 10/15/19 00:57 10/15/19 00:57 10/15/19 00:57 10/15/19 00:57 10/15/19 00:57 - Laboratory Result Diagrams: 10/14/19 22:05 10/14/19 22:05 Laboratory results interpreted by me: 10/14/19 22:05 WBC 13.6 H Absolute Neuts (auto) 8.5 H Discharge - Discharge Clinical Impression: hemorrhage of vagina Condition: Stable Disposition: HOME, SELF-CARE Additional Instructions: You were seen today for vaginal bleeding . He states her baby was born about 2 weeks ago. I have completed blood and urine your H&H which is the blood level that we would become concerned about is 14 and 40 which is normal. I have called Dr. Whittington who is the [employer] production planner at this time. I have discussed with him the ultrasound report and the lab reports. He stated that she would need to come to the [employer] office first thing in the morning so call place it first thing in the morning and schedule an appointment for the a.m. for follow- up. I have given you a copy of your labs and ultrasound report to take with you to this appointment. FOLLOW-UP CARE: If you have been referred to a physician for follow-up care, call the physicians office for an appointment as you were instructed or within the next two days. If you experience worsening or a significant change in your symptoms, notify the physician immediately or return to the Emergency Department at any ti me for re-evaluation. Referrals: MARCIA ELDER MD [ACTIVE STAFF] - Follow up as needed [facility] [Provider Group] - 10/15/19
[2019-10-15 00:59] VITALS: BP 117/82
== END 2019-10-15 01:00 | disposition home or self-care (01) ==
LOC: ER 20:39
DX: O72.2 Delayed and secondary postpartum hemorrhage (principal); O99.335 Smoking (tobacco) complicating the puerperium; F17.210 Nicotine dependence, cigarettes, uncomplicated; Z71.6 Tobacco abuse counseling; O16.5 Unspecified maternal hypertension, complicating the puerperium; E11.9 Type 2 diabetes mellitus without complications; Z91.013 Allergy to seafood; Z88.0 Allergy status to penicillin; Z88.6 Allergy status to analgesic agent; Z88.5 Allergy status to narcotic agent; Z88.2 Allergy status to sulfonamides; O24.13 Pre-existing type 2 diabetes mellitus, in the puerperium
CPT/HCPCS: 99406; 99284; 86900; 86901; 36415; 86870; 86850; 85025; 80053; 76856; J3490; S0119

== ENCOUNTER 2020-10-14 14:54 | Emergency (ER) | payer MEDICAID ==
--- NOTE | 2020-10-14 16:29 | ER Document Report ---
ED Medical Screen (RME) - General Chief Complaint: Urinary Problem Stated Complaint: POSSIBLE UTI,FEVER Time Seen by Provider: 10/14/20 16:15 Primary Care Provider: DAMON SNOWDEN PA-C [Primary Care Provider] - Follow up as needed Mode of Arrival: Wheelchair Information source: Patient Notes: 40-year-old female patient presented to the emergency department concern for possible worsening urinary tract infection. Patient reports she had a neurosurgical stimulator placed on Friday at [facility], she had a urinary catheter inserted for the procedure. Yesterday she reports she started having fever, chills, dysuria and lower abdominal pain. She went and saw her primary care provider who diagnosed her with UTI, gave her a dose of IM Rocephin and started her on Bactrim. Patient reports today her pain has worsened and she continues to have fevers as high as 101.5. She reports nausea but denies any vomiting. Patient alert, oriented, no acute distress noted. I have greeted and performed a rapid initial assessment of this patient. A comprehensive ED assessment and evaluation of the patient, analysis of test results and completion of the medical decision making process will be conducted by additional ED providers. I have specifically instructed the patient or family members with the patient to immediately return to any nursing staff should anything change in the patient's condition or with their chief complaint. TRAVEL OUTSIDE OF THE [place] IN LAST 30 DAYS: No - Related Data Allergies/Adverse Reactions: Shellfish * [Shellfish] Allergy (Severe, Verified 09/30/19 06:02) Hives (hospitalized for 2 days) amoxicillin trihydrate [From Augmentin] Allergy (Intermediate, Verified 09/30/19 06:02) Rash Potassium Clavulanate * [From Augmentin] Allergy (Intermediate, Verified 09/30/19 06:02) Rash propoxyphene napsylate [From Darvocet-N 100] Allergy (Intermediate, Verified 09/30/19 06:02) Rash Sulfa (Sulfonamide Antibiotics) Allergy (Intermediate, Verified 09/30/19 06:02) Generalized rash Past Medical History - Past Medical History Cardiac Medical History: Reports: Hx Heart Attack - 2011 due to stress, Hx Hypercholesterolemia, Hx Hypertension Denies: Hx Coronary Artery Disease Pulmonary Medical History: Reports: Hx Asthma, Hx Sleep Apnea Denies: Hx Bronchitis, Hx COPD, Hx Pneumonia, Hx Tuberculosis Neurological Medical History: Denies: Hx Cerebrovascular Accident, Hx Seizures Endocrine Medical History: Reports: Hx Diabetes Mellitus Type 2 Renal/ Medical History: Denies: Hx Peritoneal Dialysis GI Medical History: Reports: Hx Gastroesophageal Reflux Disease, Hx Ulcer Musculoskeltal Medical History: Reports Hx Arthritis, Reports Hx Musculoskeletal Deformity, Reports Hx Musculoskeletal Trauma Psychiatric Medical History: Reports: Hx Bipolar Disorder, Hx Depression, Hx Post Traumatic Stress Disorder, Hx Schizoaffective Disorder, Hx Schizophrenia Traumatic Medical History: Reports: Hx Fractures - Right foot Infectious Medical History: Past Surgical History: Reports: Hx Adenoidectomy, Hx Appendectomy, Hx Cholecystectomy, Hx Genitourinary Surgery - Bladder stimulator, Hx Gynecologic Surgery - Cervical laser surgery, Hx Orthopedic Surgery - Bunion surgery right foot carpal tunnel right ulnar release both elbows, Hx Tonsillectomy. Denies: Hx Hysterectomy, Hx Pacemaker - Immunizations Hx Diphtheria, Pertussis, Tetanus Vaccination: No Physical Exam - Vital signs Vitals: Temp Pulse Resp BP Pulse Ox 98.6 F 84 20 106/65 96 10/14/20 15:48 10/14/20 15:48 10/14/20 15:48 10/14/20 15:48 10/14/20 15:48 Course - Vital Signs Vital signs: Temp Pulse Resp BP Pulse Ox 98.6 F 84 20 106/65 96 10/14/20 15:48 10/14/20 15:48 10/14/20 15:48 10/14/20 15:48 10/14/20 15:48 Doctor's Discharge - Discharge Referrals: DAMON SNOWDEN PA-C [Primary Care Provider] - Follow up as needed
[2020-10-14 16:59] LABS: APPEARANCE,URINE CLEAR; BILIRUBIN,URINE NEGATIVE (NEGATIVE); COLOR,URINE YELLOW; GLUCOSE, URINE NEGATIVE (NEGATIVE); KETONES,URINE NEGATIVE (NEGATIVE); PROTEIN,URINE NEGATIVE (NEGATIVE); URINE SPECIFIC GRAVITY 1.008; UROBILINOGEN,URINE NEGATIVE mg/dL (<2.0)
[2020-10-14 17:06] LABS: ABSOLUTE BASOPHILS # (AUTO) 0.1 10^3/uL (0.0-0.2); ABSOLUTE EOSINOPHILS # (AUTO) 0.1 10^3/uL (0.0-0.6); ABSOLUTE LYMPHOCYTES (AUTO) 1.3 10^3/uL (0.5-4.7); ABSOLUTE MONOCYTES (AUTO) 0.8 10^3/uL (0.1-1.4); ABSOLUTE NEUT (AUTO) 6.9 10^3/uL (1.7-8.2); BASOPHILS % (AUTO) 0.8 % (0-2); EOSINOPHILS % (AUTO) 1.1 % (0-6); HEMATOCRIT 37.2 % (36.0-47.0); HEMOGLOBIN 12.8 g/dL (12.0-15.5); LYMPHOCYTES % (AUTO) 14.3 % (13-45); MEAN CORPUSCULAR HEMOGLOBIN 31.2 pg (27.0-33.4); MEAN CORPUSCULAR HGB CONC 34.4 g/dL (32.0-36.0); MEAN CORPUSCULAR VOLUME 91 fl (80-97); PLATELET COUNT 214 10^3/uL (150-450); RED CELL DISTRIBUTION WIDTH 12.6 % (11.5-14.0); SEGMENTED NEUTROPHILS % (AUTO) 74.8 % (42-78); TOTAL CELLS COUNTED % (AUTO) 100 %; WHITE BLOOD COUNT 9.2 10^3/uL (4.0-10.5)
[2020-10-14 17:27] LABS: ALBUMIN 3.8 g/dL (3.5-5.0); ALKALINE PHOSPHATASE 61 U/L (38-126); ANION GAP 7 (5-19); ASPARTATE AMINO TRANSFERASE 14 U/L (14-36); BILIRUBIN,DIRECT 0.3 mg/dL (0.0-0.4); BILIRUBIN,TOTAL 0.3 mg/dL (0.2-1.3); BLOOD UREA NITROGEN 6 mg/dL (7-20); CALCIUM 9.1 mg/dL (8.4-10.2); CARBON DIOXIDE 26 mmol/L (22-30); CHLORIDE 103 mmol/L (98-107); GLUCOSE 101 mg/dL (75-110); POTASSIUM 4.2 mmol/L (3.6-5.0); TOTAL PROTEIN 6.5 g/dL (6.3-8.2)
[2020-10-14] MEDS ORDERED: PHENAZOPYRIDINE HCL 100 MG TABLET PO ONE (20:42)
[2020-10-14] MEDS ORDERED: KETOROLAC TROMETHAMINE INJ/PF 30 MG/1 ML SDV IV ONE (20:42)
[2020-10-14] MEDS ORDERED: PROMETHAZINE HCL 25 MG TABLET PO ONE (20:42)
[2020-10-14] MEDS ORDERED: NORMAL SALINE 1000 ML 1,000 ML IV ONE (20:43)
--- NOTE | 2020-10-14 20:43 | ER Document Report ---
ED GI/ - General Chief Complaint: Urinary Frequency Stated Complaint: POSSIBLE UTI,FEVER Time Seen by Provider: 10/14/20 16:15 Primary Care Provider: DAMON SNOWDEN PA-C [Primary Care Provider] - Follow up as needed Mode of Arrival: Wheelchair Information source: Patient Notes: 40-year-old female presented to ED for complaint of possible worsening urinary tract infection. She states she had a neurosurgical stimulator implanted on Friday and and she had a urinary tract infection. She had a urinary catheter inserted for the procedure. She states yesterday she started having fever chills and thus dysuria and lower abdominal pain. She went to her primary care doctor they diagnosed her with UTI and her shot of Rocephin and put her on Bactrim. She states she does have an allergy to Bactrim which is rashes but she has been vomiting since this afternoon. She states she developed a fever of 101.5 and has had nausea but no vomiting before coming to the emergency room. She has had several episodes of vomiting since being in the emergency room. She has been treated with Zofran and Phenergan and IV fluids. CBC has no acute abnormalities. Chemistry sodium is 135.9 and BUN is 6. Show a lot of WBCs and leukocytes. I have sent the urine for culture. Patient has been started on Macrodantin as she does not know if the Bactrim is causing her to be nauseated. She did have an accident with urine when she vomited. She has been given a new abdominal binder and paper scrubs to wear home. Constitutional: She did have a fever of 101.5 earlier no fever while in the emergency room HENT: Negative for sore throat. Eyes: Negative for visual changes. Cardiovascular: Negative for chest pain. Respiratory: Negative for shortness of breath. Gastrointestinal: Nausea and vomiting Genitourinary: Pain with urination pelvic pain. Musculoskeletal: Negative for back pain. Skin: Negative for rash. Neurological: Negative for headaches, weakness or numbness. 10 point ROS negative except as marked above and in HPI. VITAL SIGNS: Within normal limits. GENERAL: No acute distress, non-toxic appearance. HEAD: Normal with no signs of head trauma. EYES: PERRLA, EOMI, conjunctiva normal, no discharge. EARS: Hearing grossly intact. NOSE: Normal. THROAT: Oropharynx is normal. NECK: Normal range of motion, no tenderness, supple, no lymphadenopathy, No adenopathy, no JVD. CHEST: Clear breath sounds bilaterally. No wheezes, rales, or rhonchi. CARDIAC: Regular rate and rhythm. S1 and S2, without murmurs, gallops, or rubs. VASCULAR: No Edema. Peripheral pulses normal and equal in all extremities. ABDOMEN: Normal and soft with no tenderness, no masses or pulsatile masses. GASTROINTESTINAL: Bowel sounds normal GENITOURINARY: Bladder pain cramping LYMPATHTIC: No lymphadenopathy noted. MUSCULOSKELETAL: Good range of motion of all major joints. Extremities without clubbing, cyanosis or edema. NEUROLOGICAL: Alert and oriented x 3. No focal sensory or strength deficits. Speech normal. Follows commands appropriately. PSYCHIATRIC: Normal Affect, judgement and mood. SKIN: Normal appearance with no rashes or lesions. TRAVEL OUTSIDE OF THE [place] IN LAST 30 DAYS: No - HPI Patient complains to provider of: Dysuria, Other Onset: Yesterday Timing/Duration: Intermittent Quality of pain: Cramping Severity at maximum: Moderate Severity in ED: Moderate Pain Level: 2 Location: Suprapubic Vaginal bleeding (Compared to normal period): None Associated symptoms: Dysuria Exacerbated by: Movement Relieved by: Denies Similar symptoms previously: Yes Recently seen / treated by doctor: Yes - Related Data Allergies/Adverse Reactions: Shellfish * [Shellfish] Allergy (Severe, Verified 09/30/19 06:02) Hives (hospitalized for 2 days) amoxicillin trihydrate [From Augmentin] Allergy (Intermediate, Verified 09/30/19 06:02) Rash Potassium Clavulanate * [From Augmentin] Allergy (Intermediate, Verified 09/30/19 06:02) Rash propoxyphene napsylate [From Darvocet-N 100] Allergy (Intermediate, Verified 09/30/19 06:02) Rash Sulfa (Sulfonamide Antibiotics) Allergy (Intermediate, Verified 09/30/19 06:02) Generalized rash Past Medical History - General Information source: Patient - Social History Smoking Status: Never Smoker Frequency of alcohol use: None Drug Abuse: None Lives with: Family Family History: Reviewed & Not Pertinent, Arthritis, CAD, COPD, DM, Hyperlipidemia, Hypertension, Thyroid Disfunction - Past Medical History Cardiac Medical History: Reports: Hx Heart Attack - 2011 due to stress, Hx Hypercholesterolemia, Hx Hypertension Pulmonary Medical History: Reports: Hx Asthma, Hx Sleep Apnea EENT Medical History: Reports: None Neurological Medical History: Reports: None Endocrine Medical History: Reports: Hx Diabetes Mellitus Type 2 Renal/ Medical History: Reports: None Malignancy Medical History: Reports: None GI Medical History: Reports: Hx Gastroesophageal Reflux Disease, Hx Ulcer Musculoskeletal Medical History: Reports Hx Arthritis, Reports Hx Musculoskeletal Deformity, Reports Hx Musculoskeletal Trauma, Reports Hx Res tless Leg Syndrome Skin Medical History: Reports None Psychiatric Medical History: Reports: Hx Bipolar Disorder, Hx Depression, Hx Post Traumatic Stress Disorder, Hx Schizoaffective Disorder, Hx Schizophrenia Traumatic Medical History: Reports: Hx Fractures - Right foot Infectious Medical History: Reports: None Past Surgical History: Reports: Hx Adenoidectomy, Hx Appendectomy, Hx Cholecystectomy, Hx Genitourinary Surgery - Bladder stimulator, Hx Gynecologic Surgery - Cervical laser surgery, Hx Orthopedic Surgery - Bunion surgery right foot carpal tunnel right ulnar release both elbows, Hx Tonsillectomy - Immunizations Hx Diphtheria, Pertussis, Tetanus Vaccination: No Hx Pneumococcal Vaccination: 10/13/97 Physical Exam - Vital signs Vitals: Temp Pulse Resp BP Pulse Ox 98.6 F 84 20 106/65 96 10/14/20 15:48 10/14/20 15:48 10/14/20 15:48 10/14/20 15:48 10/14/20 15:48 Course - Vital Signs Vital signs: Temp Pulse Resp BP Pulse Ox 97.6 F 84 18 136/78 H 97 10/15/20 01:30 10/15/20 01:30 10/15/20 01:30 10/15/20 01:30 10/15/20 01:30 - Laboratory Results Result Diagrams: 10/14/20 16:50 10/14/20 16:50 Laboratory Results Interpreted: 10/14/20 10/14/20 15:53 16:50 Sodium 135.9 L BUN 6 L Leukocyte Esterase Rfl LARGE H Critical Laboratory Results Reviewed: No Critical Results - Radiology Results Critical Radiology Results Reviewed: No Critical Results Discharge - Discharge Clinical Impression: UTI (urinary tract infection) Qualifiers: Urinary tract infection type: site unspecified Hematuria presence: without hematuria Qualified Code(s): N39.0 - Urinary tract infection, site not specified Nausea & vomiting Qualifiers: Vomiting type: unspecified Vomiting Intractability: unspecified Qualified Code(s): R11.2 - Nausea with vomiting, unspecified Condition: Stable Disposition: HOME, SELF-CARE Additional Instructions: URINARY TRACT INFECTION: Your evaluation indicates that you have a urinary tract infection. This is due to germs growing in the bladder. This is a common problem. This infection usually responds quickly to antibiotics. Your antibiotic should be taken exactly as prescribed. Drink plenty of fluids -- three to four quarts a day. Occasionally, a bladder anesthetic will be prescribed to help stop the fe eling of urgency until the antibiotic has a chance to clear the infection. This may cause your urine to be dark orange. Certain urine infections require a culture. If the doctor obtained a cult ure, the results will be back in two days. You should call to see if a change in treatment is needed. A repeat urinalysis after you finish treatment is often recommended. The physician will let you know if further testing is required. Call the doctor if you develop fever, chills, flank pain, inability to urinate, or blood in the urine. VOMITING: Vomiting (or nausea without vomiting) can be caused by many other different problems. It can mean that something's wrong with the stomach, such as ulcers or inflammation or the intestinal tract, such as appendicitis. But it can also be a symptom of a problem that has nothing to do with the stomach or intestines. Vomiting is common with severe headaches, earaches, tonsillitis, and kidney infections, etc. We see it with pneumonia or heart attacks. Drugs can cause nausea and vomiting. Many abdominal problems cause vomiting; for example, gallstones, kidney stones, pancreatitis, and intestinal obstruction (blocked bowels). In most cases, curing the vomiting depends on fixing the problem that caused it. For temporary relief, we may use an anti-nausea medicine. For home use, we can prescribe suppositories, chewable pills, pills that dissolve in the mouth, or liquid anti-nausea drugs. If the vomiting seems to be caused by a problem in the stomach, acid-suppressing drugs may be prescribed as well. It's important to avoid dehydration. Sip small amounts of clear liquids (soft drinks, tea, broth, etc) . Try to take fluids frequently even if you are vomiting to prevent dehydration. Take increasing amounts of fluid and when liquids are being consumed successfully, advance to small amounts of bland food (toast, soups, mashed potatoes, etc.) until you are able to resume a regular diet. Avoid aspirin, tobacco, and alcohol. If the vomiting worsens, if the problem that's making you vomit worsens, or if there's evidence of bleeding in the stomach (such as black, tarry stool, or bloody or black vomit), you should return immediately. Also, return if abdominal pain worsens or becomes localized to one area or you develop high fever. Call your doctor if you aren't improved in 24 hours. INTRAVENOUS (I V) FLUIDS: As part of your care today, you received intravenous (IV) fluids. IV fluids are administered to patients who are dehydrated or to those who have certain chemical (electrolyte) abnormalities that need correcting. ANTINAUSEA MEDICATION: You have been given a medication to suppress nausea and vomiting. This type of medication can be given as a shot, pill, or suppository. It will usually last for many hours. Pills and shots usually last six to eight hours. For the typical illness, only one or two doses of the medication may be necessary. Mild lightheadedness may occur. This type of medicine can cause drowsiness. Do not drive or operate dangerous machinery while under its influence. Do not mix with alcohol. See your doctor at once if you have muscle spasms or tightness, or uncontrollable motions (particularly of the neck, mouth, or jaw). Persistent vomiting or severe lightheadedness should also be evaluated by the physician. NITROFURANTOIN (MACRODANTIN, MACROBID): You have received a prescription for nitrofurantoin (Macrodantin). This antibiotic is used for urinary tract infections. Women who are or nursing should notify the physician before taking this medicine. If you have ever had a problem caused by this medication in the past, be sure the physician is aware of it. Common side effects of this medicine include nausea, vomiting, or decreased appetite. Notify your physician if these side effects become severe. Immediately stop this medicine and call the physician if you develop cough, shortness of breath, chest pain, weakness, jaundice (yellow color of the skin and whites of the eyes), or a skin rash. URINARY ANESTHETIC AGENT: You have been given a medication (Pyridium) for urinary tract discomfort. This medicine numbs the lining of the bladder and urethra, resulting in less pain, burning, and urgency. You may take it as needed, according to instructions. When the symptoms resolve, you can stop this medication (be sure to continue any other medications the doctor has given you). This medicine turns the urine a dark orange. It may stain underwear. Occasionally, it can cause nausea. Return for evaluation if there are any unexpected effects, such as itching, hives, or shortness of breath. FOLLOW-UP CARE: If you have been referred to a physician for follow-up care, call the physicians office for an appointment as you were instructed or within the next two days. If you experience worsening or a significant change in your symptoms, notify the physician immediately or return to the Emergency Department at any time for re-evaluation. Prescriptions: Nitrofurantoin Monohyd/M-Cryst [Macrobid 100 mg Capsule] 100 mg PO BID #20 cap Promethazine HCl [Phenergan 25 mg Tablet] 25 mg PO Q6H PRN #15 tablet PRN Reason: Phenazopyridine HCl [Pyridium 100 Mg Tablet] 100 mg PO TIDP PRN #15 tablet PRN Reason: Forms: Elevated Blood Pressure Referrals: DAMON SNOWDEN PA-C [Primary Care Provider] - Follow up as needed
[2020-10-14] MEDS ORDERED: ONDANSETRON HCL INJ/PF 4 MG/2 ML SDV IV ONE (22:49)
[2020-10-15] MEDS ORDERED: ACETAMINOPHEN 325 MG TABLET PO ONE (00:08)
[2020-10-15] MEDS ORDERED: PROMETHAZINE HCL 25 MG SUPP (4 SUPP/ER DISP) PR ONE (01:04)
[2020-10-15 01:35] VITALS: BP 136/78
== END 2020-10-15 01:35 | disposition home or self-care (01) ==
LOC: ER 14:54
DX: N39.0 Urinary tract infection, site not specified (principal); R11.2 Nausea with vomiting, unspecified; R50.9 Fever, unspecified; E11.9 Type 2 diabetes mellitus without complications; I25.2 Old myocardial infarction
CPT/HCPCS: 99284; 96361; 96374; 96375; 36415; 87086; 85025; 80053; 81001; J3490 ×4; J1885; J2405; J7030